=== PATIENT | male | born 1940 | race Caucasian/White ===

== ENCOUNTER → 2016-05-14 | Outpatient (CLI) | payer BC ==
[~2016-05-14] MED LIST: ALLO100T PO; ASPI-435 PO; ATOR80TA PO; LISI-461 PO; LISI-725 PO; METO1TAB69 PO; MULT-506 PO
[2016-05-14 10:34] LABS: BASO % 0.2 %; BASO ABS # 0.01 K/uL (0-0.2); COMPLETE YES; EOS % 6.7 %; IG% 0.2 %; LYMPH % 28.5 %; MEAN CELL VOLUME 91.1 fL (80-100); MEAN CORPUSCULAR HEMOGLOBIN 32.1 pg (25-34); MEAN CORPUSCULAR HGB CONC 35.2 g/dl (32-36); MEAN PLATELET VOLUME 10.3 fL (7.4-10.4); MONO % 6.4 %; PLATELET COUNT 227 K/uL (130-400); RED BLOOD COUNT 4.83 M/uL (4.7-6.1); WHITE BLOOD COUNT 5.97 K/uL (4.8-10.8)
[2016-05-14 10:45] LABS: ALT/SGPT 34 U/L (12-78); BLOOD UREA NITROGEN 14 mg/dl (7-18); BUN/CREATININE RATIO 15.1 (10-20); CALCIUM 9.2 mg/dl (8.5-10.1); CARBON DIOXIDE 26 mmol/L (21-32); CHLORIDE 105 mmol/L (98-107); CHOLESTEROL 192 mg/dl (0-200); CREATININE 0.94 mg/dl (0.60-1.40); GLUCOSE 110 mg/dl (70-99); POTASSIUM 4.1 mmol/L (3.5-5.1); SODIUM 140 mmol/L (136-145); TRIGLYCERIDES 437 mg/dl (0-150)
[2016-05-14 10:50] LABS: AST/SGOT 17 U/L (15-37); CHOLESTEROL/HDL RATIO 5.6; HDL CHOLESTEROL 34 mg/dl
[2016-05-14 11:37] LABS: ESTIMATED AVERAGE GLUCOSE 117 mg/dl; HA1C FLAG Normal (Normal)
== END | disposition home or self-care (01) ==
LOC: C.LAB1850 09:21
PROVIDERS: ATTEND Internal Medicine
DX: M10.9 Gout, unspecified (principal); R73.9 Hyperglycemia, unspecified; E78.00 Pure hypercholesterolemia, unspecified; R73.09 Other abnormal glucose

== ENCOUNTER → 2016-10-27 | Day surgery (SDC) | payer BC ==
[2016-10-19 10:24] VITALS: Ht 172.7 cm; Wt 77.3 kg
[~2016-10-27] VITALS: Ht 172.7 cm; Wt 77.3 kg
[~2016-10-27] MED LIST changes: +500ML BSS 0.3ML EPI 1:1000PF IRRIG ONE; +ACETAMINOPHEN 325 MG TAB PO PRN; +AMVISC PLUS 0.8ML SYRINGE INT OCU ONE; +ATROPINE SULFATE 0.1 MG/ML 5ML SYR IV PRN; +AcetaZOLAMIDE 250 MG TAB PO SCH; +BETAXOLOL HCL 0.25% OP SUSP PER DROP CHARGE OPR SCH; +BRIMONIDINE TART 0.2% OP SOLN PER DROP CHARGE ONE; +BSS FLUSH ONE; +ENDOCOAT 0.85ML SYRINGE INT OCU ONE; +EpHEDrine SULFATE INJ 50 MG/ML AMP IV PRN; +EpINEphrine INJ 1MG/ML AMP 1 MG/ML AMP ONE; +LACTATED RINGER'S 1000ML 500 ML IV SCH; +LIDOCAINE 4% OP SOLN DROP CHARGE ONE; +LIDOCAINE 4% OP SOLN DROP CHARGE OPR SCH; +LIDOCAINE HCL 1% MPF 2 ML VIAL ONE; -LISI-461 PO; +MIDAZOLAM HCL 1 MG/ML 2ML VIAL ONE; +MIX: 4ML BSS 1ML EPI 1:1000 PF INSTIL ONE; +MOXIFLOXACIN OPH SOLN PER DROP CHARGE ONE; +OCUCOAT 1 ML SOLN IO ONE; +POVIDONE-IODINE OP SOLN 30 ML BTL ONE; +PROPARACAINE 0.5% OP SOLN PER DROP CHARGE OPR SCH; +TOBRAMYCIN/DEXAMETHASONE OPH OINT PER APPLN CHARGE ONE
--- NOTE | 2016-10-27 10:00 | History & Physical Bridge - [place] ---
H&P Re-Evaluation Bridge Note: I have examined the patient, reviewed the History & Physical and in the interval since the performance of the History & Physical I have noted the following changes of clinical significance: No changes noted
[2016-10-27] MEDS: PHENYLEPHRINE HCL 2.5% OP SOLN PER DROP CHARGE OPR SCH ×2 (10:55→11:00)
[2016-10-27] MEDS: TROPICAMIDE 1% OP SOLN PER DROP CHARGE OPR SCH ×2 (10:56→11:01)
[2016-10-27] MEDS: CYCLOPENTOLATE HCL 1% OP SOLN PER DROP CHARGE OPR SCH ×2 (10:57→11:02)
[2016-10-27] MEDS: MOXIFLOXACIN OPH SOLN PER DROP CHARGE OPR SCH ×2 (10:58→11:08)
--- NOTE | 2016-10-27 11:52 | Discharge Instructions-SurgCtr ---
Discharge Instructions Date of Service Oct 27, 2016. Visit Reason for Visit: Cataract Right Eye Discharge Discharge Diagnosis / Problem: lens implant right eye Discharge Goals Goal(s): Improve function Activity Recommendations Activity Limitations: resume your previous activity Lifting Limitations: no more than 10 pounds Exercise/Sports Limitations: gradually increase as tolerated May Resume Sexual Activity: when tolerated Shower/Bathe: tomorrow Driving or Machine Use: resume 1 day after discharge Anesthesia . Post Anesthesia Instructions: If you have had General Anesthesia or IV Sedation: * Do not drive today. * Resume driving when surgeon permits. * Do not make important decisions or sign legal documents today. * Call surgeon for: 1. Temperature elevations greater than 101 degrees F. 2. Uncontrollable pain. 3. Excessive bleeding. 4. Persistent nausea and vomiting. 5. Medication intolerance (nausea, vomiting or rash). * For nausea and vomiting use only clear liquids such as: tea, soda, bouillon until nausea subsides, then gradually increase diet as tolerated. * If you have any concerns or questions, call your surgeon's office. If physician is unavailable and it is an emergency, call 911 or go to the nearest emergency room. . Instructions / Follow-Up Instructions / Follow-Up ACTIVITY RECOMMENDATIONS: * Light activities. * Mild irritation and blurred vision are common for the first few days. * You may walk outside, read, watch television. * Redness around the white part of the eye is common. MEDICATIONS: Resume previous medications unless instructed otherwise by your surgeon. * Take white Diamox (Acetazolamide) tablet at 2 pm today. Start all eye drops at 2 pm today: * Eye drops (today and tomorrow): Durezol - one drop in operative eye every 3 hours while awake Ofloxacin - one drop in operative eye every 3 hours while awake SPECIAL CARE INSTRUCTIONS: * Tape plastic shield over eye to sleep at night. Call your doctor at with any concerns or problems. FOLLOW UP VISIT: Follow-up with Dr Fuentes at [place] office as scheduled. Diet Recommendations Home Diet: no limitations Procedures Procedures Performed: cataract extraction with lens implants Pending Studies Studies pending at discharge: no Medical Emergencies . Who to Call and When: Medical Emergencies: If at any time you feel your situation is an emergency, please call 911 immediately. . Non-Emergent Contact Non-Emergency issues call your: Cad Programmer Call Non-Emergent contact if: your pain is not controlled [phone] . . "Provider Documentation" section prepared by Julio C Fuentes. .
--- NOTE | 2016-10-27 11:55 | [facility] Operative Report ---
Operative Report Date of Service Oct 27, 2016. Operative Report 1. PREOPERATIVE DIAGNOSIS: Senile nuclear cataract, right eye. 2. POSTOPERATIVE DIAGNOSIS: Senile nuclear cataract, right eye. 3. PROCEDURE: Phacoemulsification of right cataract with posterior chamber lens implant, type Bausch [employer] Lomb, model MI60L, power +23.0 diopters. ANESTHESIA: Local standby. SURGEON: Dr. Fuentes. COMPLICATIONS: None. OPERATING TIME: 10 minutes. 4. OPERATION AND FINDINGS: DESCRIPTION OF PROCEDURE: The right pupil was dilated. The anesthetic was administered using a topical technique. The right eye was prepped and draped. A speculum was placed. A clear corneal incision was formed. The chamber was filled with Amvisc Plus and Endocoat. Epinephrine solution was used. A paracentesis was placed. A capsulorrhexis was performed. The nucleus was hydrodissected. The lens was removed with phacoemulsification. Time was 5.59 seconds. The aspiration unit was used to remove the cortex. The capsule was filled with Amvisc Plus. The lens implant was folded and placed into the capsule. An astigmatic incision was placed at the limbus directly across from the original incision. The incisions were hydrated. The Amvisc was aspirated. The wounds were secure. The chamber was deep. The pupil was round. Brimonidine, TobraDex ointment and Vigamox solution were placed. The speculum was removed. The patient was returned to the Recovery Room in stable condition. I attest to the content of the Intraoperative Record and any orders documented therein. Any exceptions are noted below. The scribe's documentation has been prepared in my presence, under my direction and personally reviewed by me in its entirety. I confirm that the note above accurately reflects all work, treatment, procedures, and medical decision making performed by me. I personally scribed for Julio C Fuentes M.D. ([email or web address]) on 10/27/16 at 11:55. Electronically submitted by Lydia Mock ([email or web address]).
[2016-10-27 11:56] VITALS: TEMP 36.6
[2016-10-27 12:16] VITALS: BP 168/76; PULSE 60; O2SAT 97
--- NOTE | 2016-10-27 12:20 | Anesthesia Progress Nt - [facility] ---
Anesthesia Post Op Note Date & Time Oct 27, 2016 at 12:19 Vital Signs Pain Intensity: 0 Vital Signs Past 12 Hours Date Time Temp Pulse Resp B/P (MAP) Pulse Ox O2 Delivery O2 Flow Rate FiO2 10/27/16 12:16 60 20 168/76 (106) 97 Room Air 10/27/16 11:56 36.6 64 16 172/82 (112) 96 Room Air 10/27/16 10:39 36.6 63 16 171/81 (111) 95 Room Air Notes Mental Status: alert / awake / arousable, participated in evaluation Pt Amnestic to Procedure: Yes Nausea / Vomiting: adequately controlled Pain: adequately controlled Airway Patency, RR, SpO2: stable & adequate BP & HR: stable & adequate Hydration State: stable & adequate Anesthetic Complications: no major complications apparent
== END | disposition home or self-care (01) ==
LOC: X.SURG 09:42
PROVIDERS: ATTEND Specialist
DX: H25.11 Age-related nuclear cataract, right eye (principal); I10 Essential (primary) hypertension; I51.9 Heart disease, unspecified; Z79.82 Long term (current) use of aspirin; Z79.899 Other long term (current) drug therapy

== ENCOUNTER → 2016-11-17 | Day surgery (SDC) | payer BC ==
[2016-11-05 11:11] VITALS: Ht 172.7 cm; Wt 77.3 kg
[~2016-11-17] VITALS: Ht 172.7 cm; Wt 77.3 kg
[~2016-11-17] MED LIST changes: +BETAXOLOL HCL 0.25% OP SUSP PER DROP CHARGE OPL SCH; -BETAXOLOL HCL 0.25% OP SUSP PER DROP CHARGE OPR SCH; +LIDOCAINE 4% OP SOLN DROP CHARGE OPL SCH; -LIDOCAINE 4% OP SOLN DROP CHARGE OPR SCH; +PROPARACAINE 0.5% OP SOLN PER DROP CHARGE OPL SCH; -PROPARACAINE 0.5% OP SOLN PER DROP CHARGE OPR SCH
[2016-11-17] MEDS: PHENYLEPHRINE HCL 2.5% OP SOLN PER DROP CHARGE OPL SCH ×2 (11:34→11:41)
[2016-11-17] MEDS: TROPICAMIDE 1% OP SOLN PER DROP CHARGE OPL SCH ×2 (11:35→11:43)
[2016-11-17] MEDS: CYCLOPENTOLATE HCL 1% OP SOLN PER DROP CHARGE OPL SCH ×2 (11:36→11:44)
[2016-11-17] MEDS: MOXIFLOXACIN OPH SOLN PER DROP CHARGE OPL SCH ×2 (11:37→11:48)
--- NOTE | 2016-11-17 12:17 | Discharge Instructions-SurgCtr ---
Discharge Instructions Date of Service Nov 17, 2016. Visit Reason for Visit: Cataract Left Eye Discharge Discharge Diagnosis / Problem: lens implant left eye Discharge Goals Goal(s): Improve function Activity Recommendations Activity Limitations: resume your previous activity Lifting Limitations: no more than 10 pounds Exercise/Sports Limitations: gradually increase as tolerated May Resume Sexual Activity: when tolerated Shower/Bathe: tomorrow Driving or Machine Use: resume 1 day after discharge Anesthesia . Post Anesthesia Instructions: If you have had General Anesthesia or IV Sedation: * Do not drive today. * Resume driving when surgeon permits. * Do not make important decisions or sign legal documents today. * Call surgeon for: 1. Temperature elevations greater than 101 degrees F. 2. Uncontrollable pain. 3. Excessive bleeding. 4. Persistent nausea and vomiting. 5. Medication intolerance (nausea, vomiting or rash). * For nausea and vomiting use only clear liquids such as: tea, soda, bouillon until nausea subsides, then gradually increase diet as tolerated. * If you have any concerns or questions, call your surgeon's office. If physician is unavailable and it is an emergency, call 911 or go to the nearest emergency room. . Instructions / Follow-Up Instructions / Follow-Up ACTIVITY RECOMMENDATIONS: * Light activities. * Mild irritation and blurred vision are common for the first few days. * You may walk outside, read, watch television. * Redness around the white part of the eye is common. MEDICATIONS: Resume previous medications unless instructed otherwise by your surgeon. * Take white Diamox (Acetazolamide) tablet at 3 pm today. Start all eye drops at 3 pm today: * Eye drops (today and tomorrow): Durezol - one drop in operative eye every 3 hours while awake Ofloxacin - one drop in operative eye every 3 hours while awake SPECIAL CARE INSTRUCTIONS: * Tape plastic shield over eye to sleep at night. Call your doctor at with any concerns or problems. FOLLOW UP VISIT: Follow-up with Dr Fuentes at [place] office as scheduled. Diet Recommendations Home Diet: no limitations Procedures Procedures Performed: cataract extraction with lens implant Pending Studies Studies pending at discharge: no Medical Emergencies . Who to Call and When: Medical Emergencies: If at any time you feel your situation is an emergency, please call 911 immediately. . Non-Emergent Contact Non-Emergency issues call your: Sheriffs Detective Call Non-Emergent contact if: your pain is not controlled [phone] . . "Provider Documentation" section prepared by Julio C Fuentes. .
--- NOTE | 2016-11-17 12:19 | [facility] Operative Report ---
Operative Report Date of Service Nov 17, 2016. Operative Report 1. PREOPERATIVE DIAGNOSIS: Senile nuclear cataract, left eye. 2. POSTOPERATIVE DIAGNOSIS: Senile nuclear cataract, left eye. 3. PROCEDURE: Phacoemulsification of left cataract with posterior chamber lens implant, type B[employer]ch [employer] Lomb, model MI60L, power +23.0 diopters. ANESTHESIA: Local standby. SURGEON: Dr. Fuentes. COMPLICATIONS: None. OPERATING TIME: 10 minutes. 4. OPERATION AND FINDINGS: DESCRIPTION OF PROCEDURE: The left pupil was dilated. The anesthetic was administered using a topical technique. The left eye was prepped and draped. A speculum was placed. A clear corneal incision was formed. The chamber was filled with Amvisc Plus and Endocoat. Epinephrine solution was used. A paracentesis was placed. A capsulorrhexis was performed. The nucleus was hydrodissected. The lens was removed with phacoemulsification. Time was 3.72 seconds. The aspiration unit was used to remove the cortex. The capsule was filled with Amvisc Plus. The lens implant was folded and placed into the capsule. An astigmatic incision was placed at the limbus directly from the primary incision. The incision was hydrated. The Amvisc was aspirated. The wound was secure. The chamber was deep. The pupil was round. Brimonidine, TobraDex ointment and Vigamox solution were placed. The speculum was removed. The patient was returned to the Recovery Room in stable condition. I attest to the content of the Intraoperative Record and any orders documented therein. Any exceptions are noted below. The scribe's documentation has been prepared in my presence, under my direction and personally reviewed by me in its entirety. I confirm that the note above accurately reflects all work, treatment, procedures, and medical decision making performed by me. I personally scribed for Julio C Fuentes M.D. ([email or web address]) on 11/17/16 at 12:19. Electronically submitted by Lydia UGARTE).
[2016-11-17 12:21] VITALS: TEMP 36.5
[2016-11-17 12:38] VITALS: BP 147/78; PULSE 61; O2SAT 95
--- NOTE | 2016-11-17 12:41 | Anesthesia Progress Nt - [facility] ---
Anesthesia Post Op Note Date & Time Nov 17, 2016 at 12:41 Vital Signs Pain Intensity: 0 Vital Signs Past 12 Hours Date Time Temp Pulse Resp B/P (MAP) Pulse Ox O2 Delivery O2 Flow Rate FiO2 11/17/16 12:38 61 16 147/78 (101) 95 Room Air 11/17/16 12:21 36.5 60 16 154/79 (104) 95 Room Air 11/17/16 11:21 36.8 62 18 162/70 (100) 95 Room Air Notes Mental Status: alert / awake / arousable, participated in evaluation Pt Amnestic to Procedure: Yes Nausea / Vomiting: adequately controlled Pain: adequately controlled Airway Patency, RR, SpO2: stable & adequate BP & HR: stable & adequate Hydration State: stable & adequate Anesthetic Complications: no major complications apparent
== END | disposition home or self-care (01) ==
LOC: X.SURG 10:43
PROVIDERS: ATTEND Specialist
DX: H25.12 Age-related nuclear cataract, left eye (principal); I10 Essential (primary) hypertension; I51.9 Heart disease, unspecified

== ENCOUNTER → 2016-12-03 | Outpatient (CLI) | payer BC ==
[~2016-12-03] MED LIST changes: -500ML BSS 0.3ML EPI 1:1000PF IRRIG ONE; -ACETAMINOPHEN 325 MG TAB PO PRN; -AMVISC PLUS 0.8ML SYRINGE INT OCU ONE; -ATROPINE SULFATE 0.1 MG/ML 5ML SYR IV PRN; -AcetaZOLAMIDE 250 MG TAB PO SCH; -BETAXOLOL HCL 0.25% OP SUSP PER DROP CHARGE OPL SCH; -BRIMONIDINE TART 0.2% OP SOLN PER DROP CHARGE ONE; -BSS FLUSH ONE; -ENDOCOAT 0.85ML SYRINGE INT OCU ONE; -EpHEDrine SULFATE INJ 50 MG/ML AMP IV PRN; -EpINEphrine INJ 1MG/ML AMP 1 MG/ML AMP ONE; -LACTATED RINGER'S 1000ML 500 ML IV SCH; -LIDOCAINE 4% OP SOLN DROP CHARGE ONE; -LIDOCAINE 4% OP SOLN DROP CHARGE OPL SCH; -LIDOCAINE HCL 1% MPF 2 ML VIAL ONE; -MIDAZOLAM HCL 1 MG/ML 2ML VIAL ONE; -MIX: 4ML BSS 1ML EPI 1:1000 PF INSTIL ONE; -MOXIFLOXACIN OPH SOLN PER DROP CHARGE ONE; -OCUCOAT 1 ML SOLN IO ONE; -POVIDONE-IODINE OP SOLN 30 ML BTL ONE; -PROPARACAINE 0.5% OP SOLN PER DROP CHARGE OPL SCH; -TOBRAMYCIN/DEXAMETHASONE OPH OINT PER APPLN CHARGE ONE
[2016-12-03 09:48] LABS: ALT/SGPT 38 U/L (12-78); AST/SGOT 23 U/L (15-37); BLOOD UREA NITROGEN 19 mg/dl (7-18); BUN/CREATININE RATIO 20.4 (10-20); CALCIUM 8.9 mg/dl (8.5-10.1); CARBON DIOXIDE 26 mmol/L (21-32); CHLORIDE 108 mmol/L (98-107); CHOLESTEROL 159 mg/dl (0-200); CREATININE 0.93 mg/dl (0.60-1.40); GLUCOSE 106 mg/dl (70-99); SODIUM 141 mmol/L (136-145); TRIGLYCERIDES 287 mg/dl (0-150); VERY LOW DENSITY LIPOPROT CALC 57 mg/dl
[2016-12-03 09:51] LABS: CHOLESTEROL/HDL RATIO 4.4; HDL CHOLESTEROL 36 mg/dl; LDL CHOLESTEROL CALCULATED 66 mg/dl
== END | disposition home or self-care (01) ==
LOC: C.LAB1850 07:11
PROVIDERS: ATTEND Internal Medicine
DX: E78.00 Pure hypercholesterolemia, unspecified (principal); I10 Essential (primary) hypertension

== ENCOUNTER → 2017-06-10 | Outpatient (CLI) | payer BC ==
[~2017-06-10] MED LIST changes: +METO100T44 PO; -METO1TAB69 PO
[2017-06-10 09:35] LABS: HEMATOCRIT 43.8 % (42-52); HEMOGLOBIN 14.7 g/dL (14.0-18.0); MEAN CELL VOLUME 91.3 fL (80-100); MEAN CORPUSCULAR HEMOGLOBIN 30.6 pg (25-34); MEAN CORPUSCULAR HGB CONC 33.6 g/dl (32-36); MEAN PLATELET VOLUME 11.1 fL (7.4-10.4); PLATELET COUNT 205 K/uL (130-400); RED CELL DISTRIBUTION WIDTH CV 13.8 % (11.5-14.5); RED CELL DISTRIBUTION WIDTH SD 45.4 fL (36.4-46.3)
[2017-06-10 09:44] LABS: ALT/SGPT 32 U/L (12-78); AST/SGOT 18 U/L (15-37); BLOOD UREA NITROGEN 14 mg/dl (7-18); CALCIUM 8.9 mg/dl (8.5-10.1); CARBON DIOXIDE 28 mmol/L (21-32); CREATININE 0.92 mg/dl (0.60-1.40); GLUCOSE 106 mg/dl (70-99); POTASSIUM 3.7 mmol/L (3.5-5.1); SODIUM 139 mmol/L (136-145)
[2017-06-10 09:49] LABS: CHOLESTEROL 130 mg/dl (0-200); LDL CHOLESTEROL CALCULATED 59 mg/dl; URIC ACID 3.7 mg/dl (2.6-7.2)
[2017-06-10 09:59] LABS: HEMOGLOBIN A1C 5.8 % (4.5-5.6)
== END | disposition home or self-care (01) ==
LOC: C.LAB1850 07:37
PROVIDERS: ATTEND Internal Medicine Cardiovascular Disease
DX: R73.03 Prediabetes (principal); M10.9 Gout, unspecified; E78.00 Pure hypercholesterolemia, unspecified

== ENCOUNTER → 2017-12-16 | Outpatient (CLI) | payer BC ==
[2017-12-16 09:42] LABS: ALT/SGPT 52 U/L (12-78); AST/SGOT 32 U/L (15-37); BLOOD UREA NITROGEN 16 mg/dl (7-18); CARBON DIOXIDE 28 mmol/L (21-32); CHOLESTEROL 138 mg/dl (0-200); CREATININE 0.88 mg/dl (0.60-1.40); GLUCOSE 116 mg/dl (70-99); LDL CHOLESTEROL CALCULATED 71 mg/dl; POTASSIUM 4.1 mmol/L (3.5-5.1); SODIUM 139 mmol/L (136-145)
[2017-12-16 11:22] LABS: HEMOGLOBIN A1C 5.9 % (4.5-5.6)
== END | disposition home or self-care (01) ==
LOC: C.LAB1850 07:29
PROVIDERS: ATTEND Internal Medicine
DX: E78.00 Pure hypercholesterolemia, unspecified (principal); R73.03 Prediabetes

== ENCOUNTER 2023-05-27 08:46 | Inpatient (IN) ==
[2023-05-27] MEDS: FUROSEMIDE 40 MG/4 ML VIAL IV ONE (09:19)
[2023-05-27 09:30] LABS: Appearance Urine Cloudy (Clear); Bacteria Urine Automated Negative (Negative); Blood Urine Negative (Negative); Color Urine Dark Yellow; Glucose Urine UA Negative (Negative); Ketones Urine Trace (Negative); Leukocyte Esterase Urine Trace (Negative); Nitrite Urine Positive (Negative); Protein Urine 1+ (Negative); Specific Gravity Urine 1.026 (1.000-1.030); Urobilinogen Urine Negative (Negative)
[2023-05-27 09:31] LABS: Bilirubin Urine 2+ (Negative)
[2023-05-27 09:35] LABS: Base Excess ABG -9.6 mEq/L (-9-1.8); HCO3 ABG 15 mmol/L (19-24); PCO2 ABG 27 mmHg (35-46); PO2 ABG 120 mmHg (80-95); pH ABG 7.34 (7.35-7.45)
[2023-05-27 09:36] LABS: Alanine Aminotransferase 42 U/L (7-52); Albumin Globulin Ratio 1.4 (0.9-2); Albumin Level 3.8 gm/dl (3.4-5.0); Alkaline Phosphatase 80 U/L (34-104); Anion Gap 15 (3-11); Aspartate Aminotransferase 40 U/L (13-39); Bilirubin,Total 1.7 mg/dl (0.2-1.0); Blood Urea Nitrogen 37 mg/dl (6-23); Calcium 9.8 mg/dl (8.6-10.3); Carbon Dioxide 17 mmol/L (21-32); Chloride 104 mmol/L (98-107); Est GFR (African American) 56.6 ml/min; Est GFR (Non-African American) 48.8 ml/min; Globulin 2.7 gm/dl (2.5-4.0); Glucose 100 mg/dl (70-99(Fasting)); Magnesium 2.1 mg/dl (1.7-2.4); Potassium 5.1 mmol/L (3.5-5.1); Sodium 136 mmol/L (136-145); Total Protein 6.5 gm/dl (6.0-8.3)
[2023-05-27] MEDS: cefTRIAXone SODIUM 2,000 MG/50 ML BAG IV STA (09:41)
[2023-05-27 09:44] LABS: Basophils # (auto) 0.02 K/uL (0.00-0.20); Basophils % (auto) 0.3 %; Eosinophils # (auto) 0.01 K/uL (0.00-0.50); Eosinophils % (auto) 0.2 %; Hemoglobin 16.5 g/dl (14.0-18.0); Immature Granulocytes # (auto) 0.02 K/uL (0.01-0.20); Immature Granulocytes % (auto) 0.3 %; Lymphocytes # (auto) 0.72 K/uL (1.20-3.40); Lymphocytes % (auto) 11.6 %; Mean Corpuscular Hemoglobin 30.2 pg (25.0-34.0); Mean Corpuscular Hgb Conc 32.4 g/dL (32.0-36.0); Mean Corpuscular Volume 93.4 fL (80.0-100.0); Monocytes # (auto) 0.37 K/uL (0.11-0.59); Neutrophils # (auto) 5.06 K/uL (1.40-6.50); Neutrophils % (auto) 81.6 %; Platelet Count 221 K/uL (130-400); RDW Coefficient of Variation 18.6 % (11.5-14.5); RDW Standard Deviation 61.1 fL (36.4-46.3); Red Blood Count 5.46 M/uL (4.70-6.10); Troponin I High Sensitivity 50.4 pg/ml (0-20)
[2023-05-27 09:51] LABS: Thyroid Stimulating Hormone 26.763 uIu/ml (0.300-4.500)
[2023-05-27 09:58] LABS: Allen Test Pos (Pos)
--- NOTE | 2023-05-27 10:09 | History & Physical Report ---
Date of Service May 27, 2023 Assessment & Plan (1) Acute HFrEF (heart failure with reduced ejection fraction): Plan: Patient presented for a leg angiogram in 05/27; however, he was hypoxic, tachypneic, and cyanotic on arrival Bedside echocardiogram revealed LVEF at 20-25% CXR revealed cardiomegaly with mild congestive change, as well as small bilateral pleural effusions and patchy bibasilar densities EKG showed sinus rhythm with PACs at 84 bpm; QTc 505 (caution use of QT prolonging agents) No prior history of CHF No leukoctosis; afebrile VB.34/27/120/15 BNP significantly elevated at >4700 Lactate 5.5-->3.0 on arrival Troponin elevated at 50.4-->92.0 Dry weight 77-80kg (88kg on arrival) Daily weights Strict I&O monitoring Supplemental oxygen as needed to maintain SpO2 > 94% Lasix 40 mg IV BID17 Hold cilostazol as it is contraindicated in CHF 1500 mL fluid restriction Cardiology consulted for workup, as this is his first instance of HFrEF; ?acute on chronic PT/OT consulted Case management consulted; patient lives alone, and may require additional support at home A.m. CBC, BMP (2) UTI (urinary tract infection): Plan: UA positive on arrival; unclear if this is a contaminant Clinically, patient denies dysuria, burning with urination, or urinary retention Covered with Rocephin in the ED Billings placed in the ED Continue Rocephin 2000 mg IV q24h (3) Elevated TSH: Plan: TSH elevated at 26.763 on arrival Free T4 WNL at 0.77 Last TSH on 01/07/23 was 3.455 No prior diagnosis of hypothyroidism Patient denies hx of thyroid issues Reached out to endocrinology, who recommended levothyroxine 25 mcg every other day (4) Elevated troponin: Plan: Troponin elevated at 50.4-->92.0 on arrival Clinically, patient denies chest pain Continuous telemetry monitoring Trend troponin (5) PAD (peripheral artery disease): Plan: Continue aspirin (6) Hypercholesterolemia: Plan: Continue atorvastatin (7) Hypertension: Plan: Hold lisinopril in the setting of borderline YANELI Continue metoprolol (8) Gout, joint: Plan: Continue allopurinol Plan Disposition: Admit to PCU telemetry Full code AHA, low-sodium (1500mL fluid restriction) VTE PPx: Heparin 5000u SQ q12h History of Present Illness Chief Complaint: SOB, tachypnea Primary Care Provider: Julio C Lehman MD Cameron is an 83-year-old male with PMH of PAD, CAD, gout, hypercholesterolemia, HTN, vascular disease, and mild cognitive impairment. He presented for a lower extremity angiogram on 05/27, and was tachypnea and cyanotic upon arrival. Bedside echo performed at this time revealed an LVEF at 20-25%, and patient was sent to the ED. No prior diagnosis of CHF. Patient reports that his SOB started months ago. He reports that is mainly FERGUSON, such as when he goes up steps, and he reports that he had to "sit down" on a step while descending for his appointment the morning of 05/27. Patient reports that his breathing is worse at night, specifically when he is laying on his back; he is coming in the habit of sleeping in his recliner. He endorses difficulty with deep breaths. He has not been taking anything additional for his difficulty breathing. He does not use supplemental oxygen at home. Patient lives by himself in an apartment building. He has 3 children, however they are not in the area. Patient's 2.5 years ago. Patient reports he is not been consistent with his daily medications; however he reports he is good with taking his metoprolol, and took it yesterday on 05/26. He did not take his regular morning medications today. He does not use any ambulatory assist devices such as cane or walker. He denies falling, but notes that he took a tumble when exiting his building today and fell forward onto his hands; no head strike; the fleet driver who was taking to the hospital helped him get back up. History of an OK in his 40s; CABG in 2001. Patient notes an increased weight of 10 pounds over the past several months. Former tobacco cigarette smoker; quit 25 years ago. He endorses alcohol use; 1 beer yesterday; he reports that he drinks at most 3 beers per day. Patient is mildly hypothermic at 36.4 C at time of admissions; SpO2 100% on 5L NC. ED course: Rocephin 2000 mg IV Lasix 40 mg IV ROS: Patient endorses worsening FERGUSON and swelling in legs. Patient denies fever, chills, dizziness, lightheadedness, CABRAL, chest pain, chest palpitations, pleuritic CP, cough, abdominal pain, N/V/D, dysuria, burning with urination, blood in the urine/stool, or numbness/tingling in the arms or legs. Allergies Allergy/AdvReac Type Severity Reaction Status Date / Time No Known Allergies Allergy Unverified 05/27/23 07:49 Home Medications Medication Instructions Recorded Confirmed Type multivitamin,[id number] 1 tab PO DAILY 11/09/18 05/27/23 History (Complete Multivitamin tablet) aspirin 81 mg tablet 81 mg PO DAILY 12/11/18 05/27/23 History cholecalciferol (vitamin D3) 50 50 mcg PO DAILY 06/29/22 05/27/23 History mcg (2,000 unit) capsule atorvastatin 80 mg tablet 80 mg PO QPM #90 tabs 11/19/22 05/27/23 Rx allopurinol 300 mg tablet See Rx Instructions .Route 11/25/22 05/27/23 Rx .COMPLEX #90 tabs cilostazol 100 mg tablet 100 mg PO BID #180 tabs 03/21/23 05/27/23 Rx metoprolol succinate 100 mg 150 mg (1.5 x 100 mg) PO DAILY 04/04/23 05/27/23 Rx tablet,extended release 24 hr #180 tabs lisinopril 40 mg tablet See Rx Instructions .Route 05/16/23 05/27/23 Rx .COMPLEX #90 tabs Past Med/Surg History Medical History (Updated 05/27/23 @ 11:17 by Josh Dawn PA-C) Diverticulosis of colon Adenomatous polyp of colon CAD (coronary atherosclerotic disease) Wound infection Syncope Open dislocation of right thumb Laceration of right hand Head injury Surgical History History of coronary artery bypass graft Hx of CABG H/O oral surgery Family History Mother Hypertension Dementia Hyperlipidemia Sister Hypertension Breast cancer Valvular heart disease Coronary heart disease Unknown Hyperlipidemia Grandfather Acute myocardial infarction Denies family history of Colon cancer Ovarian cancer Prostate cancer Myocardial infarction Social History Smoking Status: Former smoker Second Hand Exposure: Yes; Do You Dip or Chew Tobacco: No; Hx Alcohol Use: No Hx Substance Use: No Preferred Language: Spanish Visual Impairment: Partially Limited Hearing Ability: Normal Beliefs That Will Affect Care: None marital status: Current Living Situation: Alone current occupational status: retired How many Children do You have: 3 How many Children do You have Comment: 3 step children Feels Safe at Home: Yes Childhood Exposure to Second-Hand Smoke: No Diet: regular during the past year weight has: remained stable Dental Care, Regularly: Yes Physical Activity Frequency: 3-4 Times per Week Seatbelt Use: always Sunscreen Use: Yes Review of Systems Review of Systems: See HPI above Physical Exam Physical Exam: General: no acute distress; cyanotic lips; pleasant affect; non-toxic appearing; well-nourished; cooperative; 100% SpO2 on 5L NC HEENT: normocephalic, atraumatic; no scleral icterus; PERRLA; moist mucus membrane; vision and hearing grossly intact Neck: supple; negative for JVD; no lymphadenopathy; trachea midline Skin: warm, dry without signs of tenting; mild cyanosis at fingertips; no rashes, bruising, or lesions noted CV: chest wall NTP; RRR; S1/S2 normal; no murmurs/rubs/gallops; pulses intact and symmetric at radial; Doppler was used to obtain DP pulse in the lower extremities bilaterally, which are monophasic and weak in the setting of gross swelling Lungs: no acute respiratory distress; symmetrical chest wall expansion; expiratory wheeze auscultated at the posterior lung nunez bilaterally ABD: Soft, NTP; BS present; no rebound/guarding; no ascites; no distention; negative CVA tenderness : Genitals mildly swollen; Billings catheter in place without signs of bleeding or drainage; Billings bag with dark orange urine MSK: no tics or fasciculations; +3 pitting edema extending from the top to the patient's feet to his waist bilaterally; LLE erythematous Neuro: A&Ox3; normal mood and affect; fluent speech; no focal deficits; sensation intact in LEs B/L Results & Data Results & Data Vital Signs (Past 12 Hours) Vital Signs Pulse Resp BP Pulse Ox O2 Del Method O2 Flow Rate 05/27/23 10:00 120/82 05/27/23 10:00 82 23 99 Nasal Cannula 5 05/27/23 09:53 83 27 H 91 Nasal Cannula 5 05/27/23 09:53 99/76 L 05/27/23 09:30 81 20 91 Nasal Cannula 5 05/27/23 09:30 91 Nasal Cannula 5 05/27/23 09:14 Nasal Cannula 5 05/27/23 09:10 81 22 100 05/27/23 09:10 126/83 05/27/23 09:08 118/76 05/27/23 09:08 81 20 100 Nasal Cannula 5 05/27/23 09:06 81 22 126/83 100 Nasal Cannula 5 05/27/23 09:00 82 19 100 Nasal Cannula 5 05/27/23 08:52 83 05/27/23 08:49 83 19 100 Laboratory Results Abnormal lab results 05/27/23 05/27/23 05/27/23 Range/Units 08:57 09:05 09:24 RDW Std Deviation 61.1 H (36.4-46.3) fL RDW Coeff of Rolan 18.6 H (11.5-14.5) % Lymph # (Auto) 0.72 L (1.20-3.40) K/uL ABG pH 7.34 L (7.35-7.45) ABG pCO2 27 L (35-46) mmHg ABG pO2 120 H (80-95) mmHg ABG HCO3 15 L (19-24) mmol/L ABG O2 Saturation 99.0 H (90-95) % ABG Base Excess -9.6 L (-9-1.8) mEq/L Carbon Dioxide 17 L (21-32) mmol/L Anion Gap 15 H (3-11) BUN 37 H (6-23) mg/dl BUN/Creatinine Ratio 28.0 H (10-20) Glucose 100 H (70-99(Fasting)) mg/dl Lactate 5.5 H* (0.4-2.0) mmol/L Total Bilirubin 1.7 H (0.2-1.0) mg/dl AST 40 H (13-39) U/L Troponin I High Sens 50.4 H* (0-20) pg/ml B-Natriuretic Peptide > 4700 H (0-100) pg/ml TSH 26.763 H (0.300-4.500) uIu/ml Urine Appearance Cloudy A (Clear) Urine Protein 1+ H (Negative) Urine Ketones Trace H (Negative) Urine Nitrite Positive A (Negative) Urine Bilirubin 2+ H (Negative) Ur Leukocyte Esterase Trace H (Negative) Urine RBC (Auto) 5-10 H (0-4) /hpf U Hyaline Cast (Auto) 5-10 H (0-5) /lpf U Epithel Cells (Auto) 10-20 H (0-5) /lpf 05/27/23 Range/Units 10:50 RDW Std Deviation (36.4-46.3) fL RDW Coeff of Rolan (11.5-14.5) % Lymph # (Auto) (1.20-3.40) K/uL ABG pH (7.35-7.45) ABG pCO2 (35-46) mmHg ABG pO2 (80-95) mmHg ABG HCO3 (19-24) mmol/L ABG O2 Saturation (90-95) % ABG Base Excess (-9-1.8) mEq/L Carbon Dioxide (21-32) mmol/L Anion Gap (3-11) BUN (6-23) mg/dl BUN/Creatinine Ratio (10-20) Glucose (70-99(Fasting)) mg/dl Lactate 3.0 H* (0.4-2.0) mmol/L Total Bilirubin (0.2-1.0) mg/dl AST (13-39) U/L Troponin I High Sens (0-20) pg/ml B-Natriuretic Peptide (0-100) pg/ml TSH (0.300-4.500) uIu/ml Urine Appearance (Clear) Urine Protein (Negative) Urine Ketones (Negative) Urine Nitrite (Negative) Urine Bilirubin (Negative) Ur Leukocyte Esterase (Negative) Urine RBC (Auto) (0-4) /hpf U Hyaline Cast (Auto) (0-5) /lpf U Epithel Cells (Auto) (0-5) /lpf Diagnostic Findings Chest X-Ray 05/27/23 08:56 XR chest 1V portable HISTORY: weakness COMPARISON: None. FINDINGS: There are low lung volumes. No pneumothorax. The heart is enlarged. There are poststernotomy changes. No acute fractures identified. Small bilateral pleural effusions and bibasilar densities. There is mild vascular congestion without overt edema. IMPRESSION: 1. Cardiomegaly with mild congestive change. 2. Small bilateral pleural effusions and patchy bibasilar densities. This may represent atelectasis or a pneumonia. ACT 112: Negative or not required by law. Electronically signed by: Josh Fuentes M.D. 05/27/2023 10:33 AM Code Status & VTE Plan Code Status Full code VTE Prophylaxis Plan VTE Prophylaxis will be ordered: Yes Supervising Physician Co-Signing Physician Notes Patient seen and examined, chart reviewed, case discussed with Josh Dawn, PAC and I agree with the assessment and plan as above except as otherwise noted Labs and images reviewed Cameron Gold"is a 83-year-old male with a history of peripheral vascular disease, CAD/CABG without history of CHF, hypertension, hyperlipidemia, who presented for vascular outpatient evaluation this morning for peripheral artery disease and progressive claudication when he was noted to have hypoxia, dyspnea on exertion, and concern for acute fluid overload. He was referred to the emergency department and a bedside echo was performed which showed a EF of approximately 20-25% which is new. Patient's weight on ER arrival is 88 kg, last dry weight appears to range from 77-80 kg. He was not having chest pain at time of referral and EKG did not show any acute ischemic changes, troponin was mildly elevated suspicious for demand without signs of ACS. Patient was seen at the bedside by cardiology and recommended for diuresis and optimization and consideration of catheterization evaluation once improved. At bedside patient endorses progressive lower extremity swelling and shortness of breath over several months, has not had chest pain or chest pressure at any point. Denies diaphoresis. Has had claudication for which she is seeing vascular. At the bedside patient has pitting edema through the feet, lower extremities, and thighs with some venous stasis dermatitis but no overlying warmth/tenderness. JVD is present, lung diminsihed in the bases. Acute new heart failure with reduced ejection fraction History of CAD and CABG 2001 without prior CHF Weight gain of at least 8kg. BNP >4700. CXR with bilateral effusions. Cyrus ateral pleural effusions were present 02/2023 on CTA for vascular evaluation Lasix twice daily, Billings placed follow ins and outs titrate net 1-2 L negative daily. 400 cc output given since Lasix given, lactate is now downtrending on reassessment. Patient comfortable on reassessment. Suspect elevated lactate post to combination of hypoxia and perfusion with volume overload and now improved transient hypotension. Cardiology consulted, patient presentation not consistent with ACS may have had silent ischemic event and is high risk with history of peripheral artery disease and CABG. No chest pain at any point. EKG without acute ischemic changes Continue aspirin, atorvastatin. Cilostazol held due to development of CHF Peripheral artery disease Patient with worsening claudication limiting his ability to walk and use the treadmill. Was seeing vascular for evaluation as outpatient type referral CTAA/P with runoff in February with hemodynamically significant stenosis of bilateral iliacs, right superficial femoral, and right posterior tibial artery. Patient did have moderate bilateral pleural effusions at that time Aspirin, statin, cilostazol continued Borderline YANELI with baseline creatinine around 1.80.94 elevated to 1.32 on admission, suspect congested and patient is clinically volume overloaded. Lasix as noted Hypothyroidism/subclinical hypothyroid No prior personal history or family history of hypothyroidism TSH 26 on admission, free T4 is low end of normal 0.77. Discussed with endocrine would consider this over hypothyroidism especially in setting of CHF and free T4 is lower end of normal. Would recommend treatment with 25 mcg every other day at this time and this will also likely help with cardiac contractility and peripheral vascular resistance. - 25mcg every other day, will follow-up with outpatient TFTs and adjust as needed Patient was given 1 dose of Rocephin for infected versus contaminated UA with moderate epithelial cells. Patient reports he has had no urinary symptoms, no fevers and chills. Will defer further antibiotics but follow for symptoms and UC. Agree with assessment and management otherwise as above PG Care Time/CCT Total # of Minutes Spent Total Time Spent with Patient: Total time spent is greater than 50% in coordination of care (as documented) at patient's floor/unit and/or counseling patient: [place] [address] INT INP/OBS CARE 3/75MIN Patient Type Established History Comprehensive Exam Comprehensive Medical Decision Making High Complexity Diagnoses Acute HFrEF (heart failure with reduced ejection fraction) I50.21 UTI (urinary tract infection) N39.0 Elevated TSH R79.89 Elevated troponin R79.89 PAD (peripheral artery disease) I73.9 Hypercholesterolemia E78.00 Hypertension I10 Gout, joint M10.9
[2023-05-27 10:28] LABS: T4 Free Thyroxine 0.77 ng/dl (0.61-1.60)
--- NOTE | 2023-05-27 10:34 | XRay Report ---
XR chest 1V portable HISTORY: weakness COMPARISON: None. FINDINGS: There are low lung volumes. No pneumothorax. The heart is enlarged. There are poststernotom y changes. No acute fractures identified. Small bilateral pleural effusions and bibasilar densities. There is mild vascular congestion without overt edema. IMPRESSION: 1. Cardiomegaly with mild congestive change. 2. Small bilateral pleural effusions and patchy bibasilar densities. This may represent atelectasis o r a pneumonia. ACT 112: Negative or not required by law. Electronically signed by: Josh Fuentes M.D. 05/27/2023 10:33 AM
[2023-05-27] MEDS: METOPROLOL SUCC 50MG EXT REL TAB PO STA (11:37)
[2023-05-27] MEDS: allopurinoL 300 MG TAB PO SCH (14:14)
[2023-05-27] MEDS: LEVOTHYROXINE SODIUM 25 MCG TABLET PO SCH (14:14)
--- NOTE | 2023-05-27 15:48 | Emergency Department Note ---
Impression & Plan Acute CHF, Elevated troponin, Elevated LFTs, Acidosis, lactic ED Provider Note NAME: ELOISE ELKINS AGE: 83 SEX: Male INFORMANT: Patient ED PROVIDER(S): Tripp Bowser MD CHIEF COMPLAINT: Shortness of breath PLAN: Disposition: Admitted Outpatient prescription management: none Referral: None MEDICAL DECISION MAKING: Patient presented short of breath from cardiopulmonary. Dr. Martin was concerned about poor perfusion and CHF. He had significant weight gain in the recent weeks and had draining edema in the lower extremities on examination. Patient did respond well to supplemental oxygen but still had signs of decreased perfusion peripherally. Bedside echo was performed and the patient does have an EF of about 20% or so. He had a Billings catheter placed. Urinalysis did raise some concerns for infection although the patient does not have a fever or leukocytosis. Lactate was elevated but I believe this was related to hypoxia and poor perfusion. Patient was found to have elevated LFTs as well as elevated cardiac troponin. ABG was rather unremarkable. ECG did not reveal any ST elevation but the patient did have inferolateral Q waves. Patient did receive IV Lasix. Patient was given IV Rocephin. Patient will need further management in the hospital. Consultation was made with Dr. Billy Rojo of the [facility] service. Patient was evaluated in the ER for further management. Care/management discussed with: compensation programs manager, Dr. Martin cardiology Level of care consideration(s): After review of the information above and other included data, I feel the patient requires escalation of care to admission Triage Nursing notes: reviewed and agree them. Vital Signs: reviewed and remarkable for hypoxia Additional History obtained from: Cardiology regarding his visit today Chronic Medical/Social Conditions affecting care: CAD Prior/ Outside/ External records reviewed: none Differential Diagnosis: Reactive airway disease, pneumonia, pneumothorax, COPD, CHF, infections, cardiac ischemia, pulmonary embolism, musculoskeletal, gastrointestinal, as well as other pathologies. Diagnostics, independently interpreted by me: ECG: Twelve-lead ECG reveals sinus rhythm with PACs at 84 bpm. Nonspecific interventricular conduction block present. Inferolateral Q waves present Cardiac Monitoring: Cardiac monitoring ordered by me: The patient was placed on continuous cardiac monitoring and observed. It revealed a sinus rhythm with premature supraventricular contractions at 84 bpm. Medical decision rules: none Imaging studies: Chest x-ray reveals cardiomegaly with bilateral effusions. HPI: 83 year old Male arrives for evaluation of SOB and cyanosis. This started today and was noted by his draw tender, Dr. Martin at his appointment for vascular assessment. The patient also notes the following associated symptoms, fatigue, 10 lb weight gain, FERGUSON. The patient has taken no medication for relieving factors. Current pain is rated as 0/10. Patient referred to ED with concerns for new onset CHF with history of significant CAD. Pt denies LOC, headache, fevers, chills, diaphoresis, visual changes, neck pain, chest pain, nausea, vomiting, abdominal pain, back pain, melena, hematochezia, urinary symptoms, numbness, rash, or other complaints. . PAST MEDICAL HISTORY: See Below, CAD PAST SURGICAL HISTORY: See Below, CABG SOCIAL HISTORY: See Below, drinks regularly per family HOME MEDICATIONS: See Below ALLERGIES: See Below VITALS: See Below PHYSICAL EXAMINATION: GENERAL: Awake, alert, dyspneic-appearing, in no distress HENT: Normocephalic, atraumatic. Oropharynx unremarkable. EYES: Normal conjunctiva. Sclera non-icteric. NECK: Inspection normal. Non-tender. Supple. No nuchal rigidity. FROM. No masses. RESPIRATORY: Diminished in the bases and scattered rales. Normal respiratory effort. CARDIAC: Normal rate. Normal rhythm. Extremities cool and poorly perfused. Pulses equal. + JVD. GI: Soft, non-distended. No tenderness to palpation. No rebound or guarding. No masses. RECTAL: Deferred. MUSCULOSKELETAL: Atraumatic. Chest examination reveals no tenderness. The back is symmetrical on inspection without obvious abnormality. There is no CVA tenderness to palpation. No joint edema. LOWER EXTREMITIES: Calves are equal size bilaterally and non-tender. 2-3+ edema. Chronic venous discoloration. NEURO: Normal sensorium. No sensory or motor deficits noted. SKIN: Cyanosis of the hands and feet bialterally. No rash or jaundice noted. PROCEDURES: none CRITICAL CARE: none OBSERVATION NOTE: none Past Med/Surg History Medical History (Updated 05/27/23 @ 15:48 by Tripp Bowser MD) Diverticulosis of colon Adenomatous polyp of colon CAD (coronary atherosclerotic disease) Wound infection Syncope Open dislocation of right thumb Laceration of right hand Head injury Surgical History History of coronary artery bypass graft Hx of CABG H/O oral surgery Family History Mother Hypertension Dementia Hyperlipidemia Sister Hypertension Breast cancer Valvular heart disease Coronary heart disease Unknown Hyperlipidemia Grandfather Acute myocardial infarction Denies family history of Colon cancer Ovarian cancer Prostate cancer Myocardial infarction Social History Smoking Status: Former smoker Second Hand Exposure: Yes; Do You Dip or Chew Tobacco: No; Hx Alcohol Use: Yes Alcohol type: beer Hx Substance Use: No Preferred Language: Bulgarian Communication Ability: Effective Visual Impairment: Partially Limited Hearing Ability: Normal Beliefs That Will Affect Care: None marital status: Current Living Situation: Alone current occupational status: retired How many Children do You have: 3 How many Children do You have Comment: 3 step children Feels Safe at Home: Yes Safety Concerns: Feels Safe At This Time Childhood Exposure to Second-Hand Smoke: No Diet: regular during the past year weight has: remained stable Dental Care, Regularly: Yes Physical Activity Frequency: 3-4 Times per Week Seatbelt Use: always Sunscreen Use: Yes Assistive Devices: Walker Allergies Allergies Allergy/AdvReac Type Severity Reaction Status Date / Time No Known Allergies Allergy Unverified 05/27/23 07:49 Home Meds Home Medications Medication Instructions Recorded Confirmed multivitamin,[id number] 1 tab PO DAILY 11/09/18 05/27/23 (Complete Multivitamin tablet) aspirin 81 mg tablet 81 mg PO DAILY 12/11/18 05/27/23 cholecalciferol (vitamin D3) 50 50 mcg PO DAILY 06/29/22 05/27/23 mcg (2,000 unit) capsule Previous Rx's Medication Instructions Recorded atorvastatin 80 mg tablet 80 mg PO QPM #90 tabs 11/19/22 allopurinol 300 mg tablet See Rx Instructions .Route 11/25/22 .COMPLEX #90 tabs cilostazol 100 mg tablet 100 mg PO BID #180 tabs 03/21/23 metoprolol succinate 100 mg 150 mg (1.5 x 100 mg) PO DAILY 04/04/23 tablet,extended release 24 hr #180 tabs lisinopril 40 mg tablet See Rx Instructions .Route 05/16/23 .COMPLEX #90 tabs Results & Data (ED) Vital Signs Vital Signs - 24 hr 05/27/23 08:49 05/27/23 08:52 05/27/23 09:00 Temperature Temperature Source Pulse Rate 83 83 82 Pulse Rate [Apical] Pulse Rate from SpO2 Sensor 84 84 Pulse Strength [Apical] Respiratory Rate 19 19 Respiratory Depth Respiratory Pattern Blood Pressure Blood Pressure [Right Arm] Blood Pressure Mean Blood Pressure Mean [Right Arm] Blood Pressure Position Pulse Oximetry 100 100 Oxygen Delivery Method Nasal Cannula Oxygen Flow Rate 5 Sepsis Recent Fever Within 48 Hours Sepsis New/Unexplained Change in Mental Status Sepsis Action Taken by Nursing 05/27/23 09:06 05/27/23 09:08 05/27/23 09:08 Temperature Temperature Source Pulse Rate 81 81 Pulse Rate [Apical] Pulse Rate from SpO2 Sensor 82 Pulse Strength [Apical] Respiratory Rate 22 20 Respiratory Depth Normal Respiratory Pattern Blood Pressure 126/83 118/76 Blood Pressure [Right Arm] Blood Pressure Mean 97 93 Blood Pressure Mean [Right Arm] Blood Pressure Position Sitting Pulse Oximetry 100 100 Oxygen Delivery Method Nasal Cannula Nasal Cannula Oxygen Flow Rate 5 5 Sepsis Recent Fever Within 48 Hours No Sepsis New/Unexplained Change in Mental Status No Sepsis Action Taken by Nursing No Action Required 05/27/23 09:10 05/27/23 09:10 05/27/23 09:14 Temperature Temperature Source Pulse Rate 81 Pulse Rate [Apical] Pulse Rate from SpO2 Sensor 81 Pulse Strength [Apical] Respiratory Rate 22 Respiratory Depth Respiratory Pattern Blood Pressure 126/83 Blood Pressure [Right Arm] Blood Pressure Mean 90 Blood Pressure Mean [Right Arm] Blood Pressure Position Pulse Oximetry 100 Oxygen Delivery Method Nasal Cannula Oxygen Flow Rate 5 Sepsis Recent Fever Within 48 Hours Sepsis New/Unexplained Change in Mental Status Sepsis Action Taken by Nursing 05/27/23 09:30 05/27/23 09:30 05/27/23 09:53 Temperature Temperature Source Pulse Rate 81 Pulse Rate [Apical] Pulse Rate from SpO2 Sensor 107 H Pulse Strength [Apical] Respiratory Rate 20 Respiratory Depth Respiratory Pattern Blood Pressure 99/76 L Blood Pressure [Right Arm] Blood Pressure Mean 79 Blood Pressure Mean [Right Arm] Blood Pressure Position Pulse Oximetry 91 91 Oxygen Delivery Method Nasal Cannula Nasal Cannula Oxygen Flow Rate 5 5 Sepsis Recent Fever Within 48 Hours Sepsis New/Unexplained Change in Mental Status Sepsis Action Taken by Nursing 05/27/23 09:53 05/27/23 10:00 05/27/23 10:00 Temperature Temperature Source Pulse Rate 83 82 Pulse Rate [Apical] Pulse Rate from SpO2 Sensor 84 80 Pulse Strength [Apical] Respiratory Rate 27 H 23 Respiratory Depth Respiratory Pattern Blood Pressure 120/82 Blood Pressure [Right Arm] Blood Pressure Mean 94 Blood Pressure Mean [Right Arm] Blood Pressure Position Pulse Oximetry 91 99 Oxygen Delivery Method Nasal Cannula Nasal Cannula Oxygen Flow Rate 5 5 Sepsis Recent Fever Within 48 Hours Sepsis New/Unexplained Change in Mental Status Sepsis Action Taken by Nursing 05/27/23 10:30 05/27/23 10:56 Temperature 36.4 C L Temperature Source Oral Pulse Rate 82 Pulse Rate [Apical] 81 Pulse Rate from SpO2 Sensor 80 Pulse Strength [Apical] Normal Respiratory Rate 20 19 Respiratory Depth Normal Respiratory Pattern Regular Blood Pressure 120/82 Blood Pressure [Right Arm] 114/69 Blood Pressure Mean 94 Blood Pressure Mean [Right Arm] 84 Blood Pressure Position Pulse Oximetry 100 99 Oxygen Delivery Method Nasal Cannula Oxygen Flow Rate 5 Sepsis Recent Fever Within 48 Hours Sepsis New/Unexplained Change in Mental Status Sepsis Action Taken by Nursing Laboratory Data 05/27/23 08:57 05/27/23 08:57 Lab Results 05/27/23 05/27/23 05/27/23 Range/Units 08:57 09:05 09:24 WBC 6.20 (4.8-10.8) K/ul RBC 5.46 (4.70-6.10) M/uL Hgb 16.5 (14.0-18.0) g/dl Hct 51.0 (42.0-52.0) % MCV 93.4 (80.0-100.0) fL MCH 30.2 (25.0-34.0) pg MCHC 32.4 (32.0-36.0) g/dL RDW Std Deviation 61.1 H (36.4-46.3) fL RDW Coeff of Rolan 18.6 H (11.5-14.5) % Plt Count 221 (130-400) K/uL MPV 11.0 (9.4-12.4) fL Immature Gran % (Auto) 0.3 % Neut % (Auto) 81.6 % Lymph % (Auto) 11.6 % Ness % (Auto) 6.0 % Eos % (Auto) 0.2 % Baso % (Auto) 0.3 % Neut # (Auto) 5.06 (1.40-6.50) K/uL Lymph # (Auto) 0.72 L (1.20-3.40) K/uL Ness # (Auto) 0.37 (0.11-0.59) K/uL Eos # (Auto) 0.01 (0.00-0.50) K/uL Baso # (Auto) 0.02 (0.00-0.20) K/uL Immature Gran # (Auto) 0.02 (0.01-0.20) K/uL ABG pH 7.34 L (7.35-7.45) ABG pCO2 27 L (35-46) mmHg ABG pO2 120 H (80-95) mmHg ABG HCO3 15 L (19-24) mmol/L ABG O2 Saturation 99.0 H (90-95) % ABG Base Excess -9.6 L (-9-1.8) mEq/L López Test Pos (Pos) Oxygen Given 4.5 L Sodium 136 (136-145) mmol/L Potassium 5.1 (3.5-5.1) mmol/L Chloride 104 (98-107) mmol/L Carbon Dioxide 17 L (21-32) mmol/L Anion Gap 15 H (3-11) BUN 37 H (6-23) mg/dl Creatinine 1.32 (0.6-1.4) mg/dl Est Cr Clr Drug Dosing Not Reportable Est GFR ( Amer) 56.6 ml/min Est GFR (Non-Af Amer) 48.8 ml/min BUN/Creatinine Ratio 28.0 H (10-20) Glucose 100 H (70-99(Fasting)) mg/dl Lactate 5.5 H* (0.4-2.0) mmol/L Calcium 9.8 (8.6-10.3) mg/dl Magnesium 2.1 (1.7-2.4) mg/dl Total Bilirubin 1.7 H (0.2-1.0) mg/dl AST 40 H (13-39) U/L ALT 42 (7-52) U/L Alkaline Phosphatase 80 (34-104) U/L Troponin I High Sens 50.4 H* (0-20) pg/ml B-Natriuretic Peptide > 4700 H (0-100) pg/ml Total Protein 6.5 (6.0-8.3) gm/dl Albumin 3.8 (3.4-5.0) gm/dl Globulin 2.7 (2.5-4.0) gm/dl Albumin/Globulin Ratio 1.4 (0.9-2) TSH 26.763 H (0.300-4.500) uIu/ml Free T4 0.77 (0.61-1.60) ng/dl Urine Color Dark Yellow Urine Appearance Cloudy A (Clear) Urine pH 5.0 (4.5-7.5) Ur Specific [place] 1.026 (1.000-1.030) Urine Protein 1+ H (Negative) Urine Glucose (UA) Negative (Negative) Urine Ketones Trace H (Negative) Urine Blood Negative (Negative) Urine Nitrite Positive A (Negative) Urine Bilirubin 2+ H (Negative) Urine Urobilinogen Negative (Negative) Ur Leukocyte Esterase Trace H (Negative) Urine WBC (Auto) 1-5 (0-5) /hpf Urine RBC (Auto) 5-10 H (0-4) /hpf U Hyaline Cast (Auto) 5-10 H (0-5) /lpf U Epithel Cells (Auto) 10-20 H (0-5) /lpf Urine Bacteria (Auto) Negative (Negative) 05/27/23 Range/Units 10:50 WBC (4.8-10.8) K/ul RBC (4.70-6.10) M/uL Hgb (14.0-18.0) g/dl Hct (42.0-52.0) % MCV (80.0-100.0) fL MCH (25.0-34.0) pg MCHC (32.0-36.0) g/dL RDW Std Deviation (36.4-46.3) fL RDW Coeff of Rolan (11.5-14.5) % Plt Count (130-400) K/uL MPV (9.4-12.4) fL Immature Gran % (Auto) % Neut % (Auto) % Lymph % (Auto) % Ness % (Auto) % Eos % (Auto) % Baso % (Auto) % Neut # (Auto) (1.40-6.50) K/uL Lymph # (Auto) (1.20-3.40) K/uL Ness # (Auto) (0.11-0.59) K/uL Eos # (Auto) (0.00-0.50) K/uL Baso # (Auto) (0.00-0.20) K/uL Immature Gran # (Auto) (0.01-0.20) K/uL ABG pH (7.35-7.45) ABG pCO2 (35-46) mmHg ABG pO2 (80-95) mmHg ABG HCO3 (19-24) mmol/L ABG O2 Saturation (90-95) % ABG Base Excess (-9-1.8) mEq/L López Test (Pos) Oxygen Given Sodium (136-145) mmol/L Potassium (3.5-5.1) mmol/L Chloride (98-107) mmol/L Carbon Dioxide (21-32) mmol/L Anion Gap (3-11) BUN (6-23) mg/dl Creatinine (0.6-1.4) mg/dl Est Cr Clr Drug Dosing Est GFR ( Amer) ml/min Est GFR (Non-Af Amer) ml/min BUN/Creatinine Ratio (10-20) Glucose (70-99(Fasting)) mg/dl Lactate 3.0 H* (0.4-2.0) mmol/L Calcium (8.6-10.3) mg/dl Magnesium (1.7-2.4) mg/dl Total Bilirubin (0.2-1.0) mg/dl AST (13-39) U/L ALT (7-52) U/L Alkaline Phosphatase (34-104) U/L Troponin I High Sens 92.0 H* D (0-20) pg/ml B-Natriuretic Peptide (0-100) pg/ml Total Protein (6.0-8.3) gm/dl Albumin (3.4-5.0) gm/dl Globulin (2.5-4.0) gm/dl Albumin/Globulin Ratio (0.9-2) TSH (0.300-4.500) uIu/ml Free T4 (0.61-1.60) ng/dl Urine Color Urine Appearance (Clear) Urine pH (4.5-7.5) Ur Specific [place] (1.000-1.030) Urine Protein (Negative) Urine Glucose (UA) (Negative) Urine Ketones (Negative) Urine Blood (Negative) Urine Nitrite (Negative) Urine Bilirubin (Negative) Urine Urobilinogen (Negative) Ur Leukocyte Esterase (Negative) Urine WBC (Auto) (0-5) /hpf Urine RBC (Auto) (0-4) /hpf U Hyaline Cast (Auto) (0-5) /lpf U Epithel Cells (Auto) (0-5) /lpf Urine Bacteria (Auto) (Negative) Administered Medications Allopurinol (Allopurinol 300 Mg Tab) 300 mg PO QAM ALEX Stop: 06/26/23 12:59 Last Admin: 05/27/23 14:14 Dose: 300 mg Documented By: MANDY Furosemide (Furosemide 40 Mg/4 Ml Vial) 40 mg IV BID17 ALEX Stop: 06/26/23 16:59 Last Admin: 05/27/23 17:50 Dose: 40 mg Documented By: ABNER Levothyroxine Sodium (Levothyroxine Sodium 25 Mcg Tablet) 25 mcg PO Q2D@0630 ALEX Stop: 06/26/23 12:59 Last Admin: 05/27/23 14:14 Dose: 25 mcg Documented By: MANDY Discontinued Medications Furosemide (Furosemide 40 Mg/4 Ml Vial) 40 mg IV ONE ONE Stop: 05/27/23 08:57 Last Admin: 05/27/23 09:19 Dose: 40 mg Documented By: NAN Ceftriaxone Sodium (Rocephin) 2,000 mg in 50 mls @ 100 mls/hr IV NOW STA Stop: 05/27/23 10:01 Last Infusion: 05/27/23 11:19 Dose: Infused Documented By: Infusion: 05/27/23 10:34 Dose: 100 mls/hr Documented By: Infusion: 05/27/23 09:42 Dose: 0 mls/hr Documented By: Admin: 05/27/23 09:41 Dose: 100 mls/hr Documented By: NAN Metoprolol Succinate (Metoprolol Succ 50mg Ext Rel Tab) 150 mg PO NOW STA Stop: 05/27/23 11:14 Last Admin: 05/27/23 11:37 Dose: 150 mg Documented By: CASSIE Imaging Data Radiologist's Impression: Chest X-Ray 05/27/23 08:56 XR chest 1V portable HISTORY: weakness COMPARISON: None. FINDINGS: There are low lung volumes. No pneumothorax. The heart is enlarged. There are poststernotomy changes. No acute fractures identified. Small bilateral pleural effusions and bibasilar densities. There is mild vascular congestion without overt edema. IMPRESSION: 1. Cardiomegaly with mild congestive change. 2. Small bilateral pleural effusions and patchy bibasilar densities. This may represent atelectasis or a pneumonia. ACT 112: Negative or not required by law. Electronically signed by: Josh Fuentes M.D. 05/27/2023 10:33 AM Discharge Plan Visit Data Chief Complaint: Shortness of Breath/Dyspnea Stated Complaint: CARDIAC SX ED Provider: Tripp Bowser Discharge Problem: Acute CHF, Elevated troponin, Elevated LFTs, Acidosis, lactic Patient Disposition: Admitted As Inpatient Discharge Instructions Interventions: ED Discharge Assessment Last Done: 05/27/23 11:35
--- NOTE | 2023-05-27 16:33 | XCELERA ---
[id number]
[2023-05-27] MEDS: FUROSEMIDE 40 MG/4 ML VIAL IV SCH (17:50)
[2023-05-27] MEDS: ATORVASTATIN 40 MG TAB PO SCH (20:25)
[2023-05-27] MEDS: HEPARIN SOD 5,000 UNIT/0.5 ML VIAL SQ SCH (20:25)
--- NOTE | 2023-05-27 21:35 | Cardiology Consultation ---
Date of Consultation May 27, 2023 Assessment & Plan (1) Acute HFrEF (heart failure with reduced ejection fraction): 2. 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 Bilateral lower extremity PADbilateral HEMANT, severe right SFA 4. Hypertension 5. Hypothyroidism 6. Questionable UTI 7. Mild cognitive impairment Admitted today with acute decompensated heart failure in the setting of newly noted dilated cardiomyopathy, EF 15% Possible ischemic cardiomyopathy but low suspicion AHF precipitated by ACS. Unclear alcohol history. LV dysfunction out of proportion for degree of hypothyroidism. Relatively low suspicion amyloid. Agree with IV diuresis, continue Lasix 40 mg twice daily. Target negative at least >1 L Salt restriction, daily weights Hold Toprol-XL for now. Hold lisinopril. Likely start Entresto at some point pending renal function Continue current aspirin, statin. Agree with stopping cilostazol Thyroid replacement Plan for cardiac catheterization during this hospitalization at some point after diuresis Check SPEP/UPEP Will follow History of Present Illness Attending Physician: Mike Velasquez MD History of Present Illness Mr. Marshall is a very pleasant 83 year-old man admitted with acute heart failure. His primary senior technical analyst is Dr. Lockwood. He has no history of heart failure. No documented prior echo. He has a history of coronary artery disease post four- vessel CABG 04/2001, hypertension, dyslipidemia. Previously seen by me 01/2023 due to lower extremity PAD with moderate to severe claudication. CTA 02/2023 bilateral common iliac disease along with previously noted severe right proximal SFA. Presented today for elective lower extremity angiogram. On arrival patient tachypneic, hypoxic, cyanotic and appeared grossly volume overloaded. He endorses 10 pound weight gain over the last few weeks. Also reported that today was weak to the point that he was unable to get down the stairs (21) to his ride without assistance. Patient sent to ED where ECG sinus with LVH QRS widening, PRWP and borderline inferior infarct previously seen on ECG 2014. Chest x-ray confirmed bilateral pleural effusions, BNP >4700, minimally elevated HS TropI. Metabolic acidosis with lactate of 5 down to 3. TSH 26, normal FT4. SCR up from 0.9-1.3. Echo showed dilated LV with global LV dysfunction EF 15%. Mild to moderate AI, mild to moderate mild. Also had dilated RV with moderate to severe dysfunction. Dilated IVC Social history: Lives by himself in an apartment. No nearby family. States has good friends that help. 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 Smoked on and off for 20 years quit 2001. Allergies Allergy/AdvReac Type Severity Reaction Status Date / Time No Known Allergies Allergy Unverified 05/27/23 07:49 Home Medications Medication Instructions Recorded Confirmed Type multivitamin,[id number] 1 tab PO DAILY 11/09/18 05/27/23 History (Complete Multivitamin tablet) aspirin 81 mg tablet 81 mg PO DAILY 12/11/18 05/27/23 History cholecalciferol (vitamin D3) 50 50 mcg PO DAILY 06/29/22 05/27/23 History mcg (2,000 unit) capsule atorvastatin 80 mg tablet 80 mg PO QPM #90 tabs 11/19/22 05/27/23 Rx allopurinol 300 mg tablet See Rx Instructions .Route 11/25/22 05/27/23 Rx .COMPLEX #90 tabs cilostazol 100 mg tablet 100 mg PO BID #180 tabs 03/21/23 05/27/23 Rx metoprolol succinate 100 mg 150 mg (1.5 x 100 mg) PO DAILY 04/04/23 05/27/23 Rx tablet,extended release 24 hr #180 tabs lisinopril 40 mg tablet See Rx Instructions .Route 05/16/23 05/27/23 Rx .COMPLEX #90 tabs Patient History Medical History (Updated 05/27/23 @ 15:48 by Tripp Bowser MD) Diverticulosis of colon Adenomatous polyp of colon CAD (coronary atherosclerotic disease) Wound infection Syncope Open dislocation of right thumb Laceration of right hand Head injury Surgical History History of coronary artery bypass graft Hx of CABG H/O oral surgery Family History Mother Hypertension Dementia Hyperlipidemia Sister Hypertension Breast cancer Valvular heart disease Coronary heart disease Unknown Hyperlipidemia Grandfather Acute myocardial infarction Denies family history of Colon cancer Ovarian cancer Prostate cancer Myocardial infarction Social History Smoking Status: Former smoker Second Hand Exposure: Yes; Do You Dip or Chew Tobacco: No; Hx Alcohol Use: Yes Alcohol type: beer Hx Substance Use: No Preferred Language: Slovenian Communication Ability: Effective Visual Impairment: Partially Limited Hearing Ability: Normal Beliefs That Will Affect Care: None marital status: Current Living Situation: Alone current occupational status: retired How many Children do You have: 3 How many Children do You have Comment: 3 step children Feels Safe at Home: Yes Safety Concerns: Feels Safe At This Time Childhood Exposure to Second-Hand Smoke: No Diet: regular during the past year weight has: remained stable Dental Care, Regularly: Yes Physical Activity Frequency: 3-4 Times per Week Seatbelt Use: always Sunscreen Use: Yes Assistive Devices: Walker Review of Systems Review of Systems: All systems reviewed & are unremarkable except as noted in HPI & below Physical Exam Physical Exam: General: Comfortable HEENT: Sclerae anicteric Lungs: Decreased breath sounds at bases bilateral Cardiac: Regular with occasional premature beats 2 out of 6 holosystolic at apex Vascular: 2+ radial, nonpalpable DP/PT Abdomen: Soft, nontender Extremities: Cyanosis improved. 2+ edema to below shins with some weeping Neuro: Nonfocal Psych: Confused this evening that he was in [place], but easily reoriented Results & Data Vital Signs (Past 12 Hours) Vital Signs Temp Pulse Pulse Resp BP BP BP 05/27/23 19:20 97.7 F 91 H 18 112/65 05/27/23 18:43 82 05/27/23 15:51 97.7 F 79 20 115/66 05/27/23 14:35 84 05/27/23 10:56 97.5 F L 81 19 114/69 05/27/23 10:30 82 20 120/82 05/27/23 10:00 120/82 05/27/23 10:00 82 23 05/27/23 09:53 83 27 H 05/27/23 09:53 99/76 L Pulse Ox O2 Del Method O2 Flow Rate 05/27/23 19:20 97 Room Air 05/27/23 18:43 05/27/23 15:51 99 Nasal Cannula 05/27/23 14:35 05/27/23 10:56 99 Nasal Cannula 5 05/27/23 10:30 100 05/27/23 10:00 05/27/23 10:00 99 Nasal Cannula 5 05/27/23 09:53 91 Nasal Cannula 5 05/27/23 09:53 PG Care Time/CCT Total # of Minutes Spent Total Time Spent with Patient: Total time spent is greater than 50% in coordination of care (as documented) at patient's floor/unit and/or counseling patient: Coding Level of Care Code 84747 INT INP/OBS CARE 3/75MIN Diagnoses Acute HFrEF (heart failure with reduced ejection fraction) I50.21
[2023-05-28 07:17] LABS: Basophils # (auto) 0.01 K/uL (0.00-0.20); Basophils % (auto) 0.1 %; Eosinophils # (auto) 0.03 K/uL (0.00-0.50); Eosinophils % (auto) 0.4 %; Hematocrit (blood only) 43.9 % (42.0-52.0); Hemoglobin 14.3 g/dl (14.0-18.0); Immature Granulocytes # (auto) 0.03 K/uL (0.01-0.20); Immature Granulocytes % (auto) 0.4 %; Lymphocytes # (auto) 0.93 K/uL (1.20-3.40); Lymphocytes % (auto) 11.4 %; Mean Corpuscular Hemoglobin 29.9 pg (25.0-34.0); Mean Corpuscular Hgb Conc 32.6 g/dL (32.0-36.0); Mean Corpuscular Volume 91.6 fL (80.0-100.0); Mean Platelet Volume 11.1 fL (9.4-12.4); Monocytes # (auto) 0.64 K/uL (0.11-0.59); Monocytes % (auto) 7.9 %; Neutrophils % (auto) 79.8 %; Platelet Count 174 K/uL (130-400); RDW Coefficient of Variation 18.2 % (11.5-14.5); RDW Standard Deviation 59.6 fL (36.4-46.3); Red Blood Count 4.79 M/uL (4.70-6.10); White Blood Count 8.14 K/ul (4.8-10.8)
[2023-05-28 07:51] LABS: BUN Creatinine Ratio 36.2 (10-20); Calcium 8.6 mg/dl (8.6-10.3); Creatinine Clr Calc Pharmacy 52.7 ml/min; Est GFR (African American) 74.7 ml/min; Est GFR (Non-African American) 64.4 ml/min; Potassium 3.7 mmol/L (3.5-5.1)
[2023-05-28] MEDS: ASPIRIN 81 MG ECTAB PO SCH (08:56)
[2023-05-28] MEDS ORDERED: METOPROLOL SUCC 50MG EXT REL TAB PO SCH (09:00)
[2023-05-28] MEDS: cefTRIAXone SODIUM 2,000 MG in DEXTROSE 5 % MINI-B 50 ML IV SCH (09:03)
--- NOTE | 2023-05-28 10:20 | Hospitalist Progress Note ---
Date of Service May 28, 2023 Assessment & Plan (1) Acute HFrEF (heart failure with reduced ejection fraction): Plan: Patient presented for a leg angiogram in 05/27; however, he was hypoxic, tachypneic, and cyanotic on arrival Found to be in acute decompensated congestive heart failure Ejection fraction 15% Cardiology is on consult Continue diuresis with IV Lasix 40 mg twice daily Monitor input and output, daily weight (2) UTI (urinary tract infection): Plan: UA positive on arrival; unclear if this is a contaminant Clinically, patient denies dysuria, burning with urination, or urinary retention Covered with Rocephin in the ED [place] placed in the ED Continue Rocephin 2000 mg IV q24h (3) Cardiomyopathy: Plan: Cardiomyopathy, etiology is unknown next ejection fraction 15% Continue diuresis for now According to cardiology, there is plans for cardiac cath in this admission (4) Elevated TSH: Plan: TSH elevated at 26.763 on arrival Free T4 WNL at 0.77 Last TSH on 01/07/23 was 3.455 No prior diagnosis of hypothyroidism Patient denies hx of thyroid issues Reached out to endocrinology, who recommended levothyroxine 25 mcg every other day (5) Elevated troponin: Plan: Troponin elevated at 50.4-->92.0 on arrival Clinically, patient denies chest pain Continuous telemetry monitoring Trend troponin (6) PAD (peripheral artery disease): Plan: Continue aspirin (7) Hypercholesterolemia: Plan: Continue atorvastatin (8) Hypertension: Plan: Hold lisinopril in the setting of borderline YANELI Continue metoprolol (9) Gout, joint: Plan: Continue allopurinol Plan Disposition: Admit to PCU telemetry Full code AHA, low-sodium (1500mL fluid restriction) VTE PPx: Heparin 5000u SQ q12h Admission and Anticipated Discharge Date Admission Date: May 27, 2023 Subjective Patient seen and examined, feels so much better shortness of breath is improved but states he still feels that his 10 pounds overweight Review of Systems Review of Systems: All systems reviewed are negative, apart from the ones contained in the history. Physical Exam Physical Exam: The patient is awake, alert and oriented 3, well developed and well nourished, normocephalic and atraumatic, lying in bed and in no acute distress. HEENT--PERRL, EOMI, mucous membranes and oropharynx mildly dry Neck--supple. No JVD. No bruits. Thyroid normal, trachea midline, no adenopathy. Heart--normal S1 and S2. No murmurs, rubs or gallops. Lungs--clear bilaterally, no respiratory distress, no accessory muscle use. Abdomen--normal bowel sounds and soft. Extremities--no cyanosis or clubbing. Bilateral pitting leg edema. Dermatologic--normal skin turgor, normal color, no abnormal lymph nodes, no rash. Neurologic--cranial nerves II through XII grossly intact. Rheumatologic--normal range of motion. Psychiatric--normal affect. Results & Data Results & Data Vital Signs (Past 12 Hours) Vital Signs Temp Pulse Pulse Resp BP Pulse Ox O2 Del Method 05/28/23 09:37 88 05/28/23 07:35 97.9 F 86 18 108/63 90 Room Air 05/28/23 04:00 97.5 F L 84 18 120/69 95 Room Air 05/27/23 23:49 79 05/27/23 22:43 98.1 F 85 18 114/71 97 Room Air PG Care Time/CCT Total # of Minutes Spent Total Time Spent with Patient: Total time spent is greater than 50% in coordination of care (as documented) at patient's floor/unit and/or counseling patient: Coding Level of Care Code 76963 SUB INP/OBS CARE 2/35MIN Diagnoses Acute HFrEF (heart failure with reduced ejection fraction) I50.21 UTI (urinary tract infection) N39.0 Cardiomyopathy I42.9 Elevated TSH R79.89 Elevated troponin R79.89 PAD (peripheral artery disease) I73.9 Hypercholesterolemia E78.00 Hypertension I10 Gout, joint M10.9 Time Spent (min) 35
--- NOTE | 2023-05-28 12:16 | Cardiology Progress Note ---
Date of Service May 28, 2023 Assessment & Plan (1) Acute HFrEF (heart failure with reduced ejection fraction): Plan: 2. 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 Bilateral lower extremity PADbilateral HEMANT, severe right SFA 4. Hypertension 5. Hypothyroidism 6. Questionable UTI 7. Mild cognitive impairment Diuresed well yesterday, negative more than 1.5 L Dyspnea improved, off oxygen this morning. Creatinine improved Persistent congestion on exam Etiology of cardiomyopathy unclear. Pending ischemic evaluation. Question related to alcohol intake (3 drinks a day). Also plan to evaluate amyloid. Continued IV diuresis with Lasix 40 mg twice daily. Target negative at least >1 L, Salt restriction, daily weights Restart low-dose metoprolol as BP allows Hold lisinopril. Likely start Entresto at some point pending renal function Continue current aspirin, statin. Thyroid replacement Plan for cardiac catheterization during this hospitalization at some point after diuresis Check SPEP/UPEP Will follow Admission and Anticipated Discharge Date Admission Date: May 27, 2023 Subjective Feeling much improved this morning. Denies significant shortness of breath. States had some difficulty sleeping overnight. Telemetry reviewedprimarily sinus rhythm with PACs. Brief episodes NSVT <5 beats Review of Systems Review of Systems: All systems reviewed & are unremarkable except as noted in HPI & below Physical Exam Physical Exam: General: Comfortable HEENT: Sclerae anicteric Lungs: Decreased breath sounds at bases bilateral right greater than left Cardiac: Regular with occasional premature beats 2 out of 6 holosystolic at apex. JVP to jaw Vascular: 2+ radial, nonpalpable DP/PT Abdomen: Soft, nontender Extremities: Cyanosis improved. 2-3+ edema to below the knees, mild erythema, no weeping improved from yesterday Neuro: Nonfocal Psych: Alert and oriented this morning Results & Data Vital Signs (Past 12 Hours) Vital Signs Temp Pulse Pulse Resp BP Pulse Ox O2 Del Method 05/28/23 11:48 97.9 F 85 18 99/63 L 92 Room Air 05/28/23 09:37 88 05/28/23 09:00 Room Air 05/28/23 07:35 97.9 F 86 18 108/63 90 Room Air 05/28/23 04:00 97.5 F L 84 18 120/69 95 Room Air PG Care Time/CCT Total # of Minutes Spent Total Time Spent with Patient: Total time spent is greater than 50% in coordination of care (as documented) at patient's floor/unit and/or counseling patient: Coding Level of Care Code 55776 SUB INP/OBS CARE MIN Diagnoses Acute HFrEF (heart failure with reduced ejection fraction) I50.21
--- NOTE | 2023-05-28 21:29 | Electrocardiogram Report ---
Test Reason : Blood Pressure : / mmHG Vent. Rate : 084 BPM Atrial Rate : 084 BPM P-R Int : 166 ms QRS Dur : 132 ms QT Int : 428 ms P-R-T Axes : 030 -51 147 degrees QTc Int : 505 ms Sinus rhythm with Premature atrial complexes Left axis deviation Non-specific intra-ventricular conduction block Minimal voltage criteria for LVH, may be normal variant Cannot rule out Septal infarct , age undetermined Possible Anterior infarct , age undetermined Inferior infarct (cited on or before 27-MAY-2023) Abnormal ECG When compared with ECG of 03-AUG-2014 15:23, Premature atrial complexes are now Present Borderline criteria for Anterior infarct are now Present Confirmed by Sergo John ([id number]) on 05/28/2023 9:29:36 PM Referred By: Confirmed By:Sergo John
[2023-05-29 08:02] LABS: Basophils # (auto) 0.02 K/uL (0.00-0.20); Basophils % (auto) 0.3 %; Eosinophils # (auto) 0.03 K/uL (0.00-0.50); Eosinophils % (auto) 0.4 %; Hematocrit (blood only) 42.5 % (42.0-52.0); Hemoglobin 14.2 g/dl (14.0-18.0); Immature Granulocytes # (auto) 0.02 K/uL (0.01-0.20); Immature Granulocytes % (auto) 0.3 %; Lymphocytes # (auto) 1.39 K/uL (1.20-3.40); Lymphocytes % (auto) 19.8 %; Mean Corpuscular Hemoglobin 30.2 pg (25.0-34.0); Mean Corpuscular Hgb Conc 33.4 g/dL (32.0-36.0); Mean Corpuscular Volume 90.4 fL (80.0-100.0); Mean Platelet Volume 10.9 fL (9.4-12.4); Monocytes # (auto) 0.56 K/uL (0.11-0.59); Neutrophils # (auto) 5.01 K/uL (1.40-6.50); Neutrophils % (auto) 71.2 %; Platelet Count 151 K/uL (130-400); RDW Coefficient of Variation 17.8 % (11.5-14.5); RDW Standard Deviation 57.9 fL (36.4-46.3); White Blood Count 7.03 K/ul (4.8-10.8)
[2023-05-29 08:05] LABS: BUN Creatinine Ratio 40.4 (10-20); Calcium 8.2 mg/dl (8.6-10.3); Creatinine Clr Calc Pharmacy 62.1 ml/min; Est GFR (African American) 90.4 ml/min; Potassium 3.7 mmol/L (3.5-5.1)
[2023-05-29] MEDS: METOPROLOL SUCC 50MG EXT REL TAB PO SCH (08:38)
--- NOTE | 2023-05-29 10:16 | Hospitalist Progress Note ---
Date of Service May 29, 2023 Assessment & Plan (1) Acute HFrEF (heart failure with reduced ejection fraction): Plan: Patient presented for a leg angiogram in 05/27; however, he was hypoxic, tachypneic, and cyanotic on arrival Found to be in acute decompensated congestive heart failure Ejection fraction 15% Cardiology is on consult Continue diuresis with IV Lasix 40 mg twice daily Patient is diuresing well, 2.2 L negative fluid balance over the past 24 hours Continue diuresis Monitor input and output, daily weight (2) UTI (urinary tract infection): Plan: UA positive on arrival; unclear if this is a contaminant Clinically, patient denies dysuria, burning with urination, or urinary retention Covered with Rocephin in the ED [place] placed in the ED Continue Rocephin 2000 mg IV q24h Monitor urine cultures (3) Cardiomyopathy: Plan: Cardiomyopathy, etiology is unknown next ejection fraction 15% Continue diuresis for now According to cardiology, there is plans for cardiac cath in this admission (4) Elevated TSH: Plan: TSH elevated at 26.763 on arrival Free T4 WNL at 0.77 Last TSH on 01/07/23 was 3.455 No prior diagnosis of hypothyroidism Patient denies hx of thyroid issues Reached out to endocrinology, who recommended levothyroxine 25 mcg every other d ay (5) Elevated troponin: Plan: Troponin elevated at 50.4-->92.0 on arrival Clinically, patient denies chest pain Continuous telemetry monitoring Trend troponin (6) PAD (peripheral artery disease): Plan: Continue aspirin (7) Hypercholesterolemia: Plan: Continue atorvastatin (8) Hypertension: Plan: Hold lisinopril in the setting of borderline YANELI Continue metoprolol (9) Gout, joint: Plan: Continue allopurinol Plan Disposition: Continue to monitor in the hospital, hopefully in this admission patient will have cardiac cath Full code AHA, low-sodium (1500mL fluid restriction) VTE PPx: Heparin 5000u SQ q12h Admission and Anticipated Discharge Date Admission Date: May 27, 2023 Subjective Patient seen and examined today, his symptoms have much improved, shortness of breath is much improved Review of Systems Review of Systems: All systems reviewed are negative, apart from the ones contained in the history. Physical Exam Physical Exam: The patient is awake, alert and oriented 3, well developed and well nourished, normocephalic and atraumatic, lying in bed and in no acute distress. HEENT--PERRL, EOMI, mucous membranes and oropharynx mildly dry Neck--supple. No JVD. No bruits. Thyroid normal, trachea midline, no adenopathy. Heart--normal S1 and S2. No murmurs, rubs or gallops. Lungs--clear bilaterally, no respiratory distress, no accessory muscle use. Abdomen--normal bowel sounds and soft. Extremities--no cyanosis or clubbing. Bilateral pitting leg edema. Dermatologic--normal skin turgor, normal color, no abnormal lymph nodes, no rash. Neurologic--cranial nerves II through XII grossly intact. Rheumatologic--normal range of motion. Psychiatric--normal affect. Results & Data Results & Data Vital Signs (Past 12 Hours) Vital Signs Temp Pulse Pulse Pulse Resp BP Pulse Ox 05/29/23 07:50 97.5 F L 105 H 18 117/71 91 05/29/23 07:29 105 H 05/29/23 03:15 97.5 F L 106 H 18 105/67 92 05/28/23 23:00 91 H 05/28/23 22:35 97.5 F L 80 18 107/60 93 O2 Del Method 05/29/23 07:50 Room Air 05/29/23 07:29 05/29/23 03:15 Room Air 05/28/23 23:00 05/28/23 22:35 Room Air PG Care Time/CCT Total # of Minutes Spent Total Time Spent with Patient: Total time spent is greater than 50% in coordination of care (as documented) at patient's floor/unit and/or counseling patient: Coding Level of Care Code 38195 SUB INP/OBS CARE 2/35MIN Diagnoses Acute HFrEF (heart failure with reduced ejection fraction) I50.21 UTI (urinary tract infection) N39.0 Cardiomyopathy I42.9 Elevated TSH R79.89 Elevated troponin R79.89 PAD (peripheral artery disease) I73.9 Hypercholesterolemia E78.00 Hypertension I10 Gout, joint M10.9 Time Spent (min) 35
--- NOTE | 2023-05-29 10:38 | Cardiology Progress Note ---
Date of Service May 29, 2023 Assessment & Plan (1) Acute HFrEF (heart failure with reduced ejection fraction): Plan: EF 15%, global LV dysfunction Pending ischemic evaluation. Question related to alcohol intake (3 drinks a day). Question eval amyloid 2. 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 Bilateral lower extremity PADclaudication, bilateral HEMANT, severe right SFA stenosis 4. New onset atrial fibrillation with RVRasymptomatic, [id number] 5, reasonably rate controlled 5. Hypertensionstable off home meds 6. Hypothyroidismnew, started on Synthroid 7. Questionable UTIbeing covered with ceftriaxone, blood cultures NGTD 8. Cognitive impairment with intermittent confusionlives independently, awaiting PT OT eval 9. NSVTasymptomatic, <8 beats Continues to diurese well, congestion much improved Renal function improved New onset atrial fibrillation overnight, heart rates in 100s to 110s, asymptomatic. Continued IV diuresis with Lasix 40 mg twice daily Agree with restarted toprol XL> titrate as needed--> OK with HRs 110s and below Supplement electrolytes, K >4, mag >2 Lisinopril on hold. Plan to start Entresto prior to discharge Continue current statin -Plan on cardiac catheterization tomorrow morning. Please keep NPO past midnight. --Start Eliquis today. Hold AM dose tomorrow and resume tomorrow evening post cath. Can stop ASA. Will follow Admission and Anticipated Discharge Date Admission Date: May 27, 2023 Subjective Feeling well this morning. No chest pain. Breathing much improved from admission. Denies lower extremity pain. -2 L yesterday Into new A-fib overnight around 11:00pm. Heart rates primarily symptoms in the 100s to 110s since. Asymptomatic. Review of Systems Review of Systems: All systems reviewed & are unremarkable except as noted in HPI & below Physical Exam Physical Exam: General: Comfortable HEENT: Sclerae anicteric Lungs: Decreased breath sounds at bases bilateral right greater than left (improved) Cardiac: Irregularly irregular, no murmurs Vascular: 2+ radial, nonpalpable DP/PT Abdomen: Soft, nontender Extremities: Cyanosis improved. 1-2+ edema to shins, mild erythema/stasis dermatitis. No weeping Neuro: Nonfocal Psych: Alert and oriented this morning. Confused about cream overnight Results & Data Vital Signs (Past 12 Hours) Vital Signs Temp Pulse Pulse Pulse Resp BP Pulse Ox 05/29/23 07:50 97.5 F L 105 H 18 117/71 91 05/29/23 07:29 105 H 05/29/23 03:15 97.5 F L 106 H 18 105/67 92 05/28/23 23:00 91 H 05/28/23 22:35 97.5 F L 80 18 107/60 93 O2 Del Method 05/29/23 07:50 Room Air 05/29/23 07:29 05/29/23 03:15 Room Air 05/28/23 23:00 05/28/23 22:35 Room Air PG Care Time/CCT Total # of Minutes Spent Total Time Spent with Patient: Total time spent is greater than 50% in coordination of care (as documented) at patient's floor/unit and/or counseling patient: Coding Level of Care Code 22948 SUB INP/OBS CARE 3/50MIN Diagnoses Acute HFrEF (heart failure with reduced ejection fraction) I50.21
[2023-05-29] MEDS: MAGNESIUM SULFATE / D5W 1 GM/100 ML BAG IV SCH (10:57)
[2023-05-29] MEDS: APIXABAN 5 MG TABLET PO ONE (11:55)
[2023-05-29] MEDS: POTASSIUM CHLORIDE CRTAB 20 MEQ TABCR PO SCH (11:55)
--- NOTE | 2023-05-29 13:27 | Electrocardiogram Report ---
Test Reason : Blood Pressure : / mmHG Vent. Rate : 103 BPM Atrial Rate : 066 BPM P-R Int : 000 ms QRS Dur : 136 ms QT Int : 318 ms P-R-T Axes : 000 -55 135 degrees QTc Int : 416 ms Sinus rhythm with frequent Premature atrial complexes Left axis deviation Left bundle branch block Abnormal ECG When compared with ECG of 27-MAY-2023 08:50, Left bundle branch block now present HR has increased by 19 bpm Confirmed by Lebron Flower ([id number]) on 05/29/2023 1:27:26 PM Referred By: REFERRED SELF Confirmed By:Lebron Flower
--- NOTE | 2023-05-30 07:09 | Pre Anesthesia Assessment ---
Date of Service May 30, 2023 Pre Sedation Assessment Vital Signs Temp Pulse Pulse Pulse Resp BP BP 05/30/23 06:45 100 H 20 106/79 05/30/23 05:00 88 05/29/23 21:56 97.5 F L 104 H 18 107/63 05/29/23 20:00 05/29/23 19:34 97.3 F L 82 18 100/61 05/29/23 16:08 98.2 F 102 H 16 125/87 05/29/23 15:21 79 05/29/23 11:53 89 20 115/72 05/29/23 08:00 05/29/23 07:50 97.5 F L 105 H 18 117/71 05/29/23 07:29 105 H Pulse Ox O2 Del Method 05/30/23 06:45 93 Room Air 05/30/23 05:00 05/29/23 21:56 93 Room Air 05/29/23 20:00 Room Air 05/29/23 19:34 93 Room Air 05/29/23 16:08 92 Room Air 05/29/23 15:21 05/29/23 11:53 93 Room Air 05/29/23 08:00 Room Air 05/29/23 07:50 91 Room Air 05/29/23 07:29 Cardiovascular + irregularly irregular Respiratory + respiratory effort normal Pre-Sedation Airway Assessment Smoking Status: Former smoker Hx Sleep Apnea: No Hx Difficult Intubation: No Short, Thick Neck: No Thyromental Distance: > or= 3.5 Finger Breadths Oral Cavity: + WNL Mallampati Class: II ASA: ASA4 NPO Status Date of Last Intake of Fluids: 05/29/23 Date of Last Intake of Solid Food: 05/29/23 Procedure Planning Contraindications for Sedation: none Current Medications Reviewed: Yes Notes The planned sedation has been discussed with the patient. Informed Consent was obtained. I have identified the patient, determined the appropriateness of sedation and have assessed the patient immediately prior to the procedure. All medicine(s) and interventions are by my order.
--- NOTE | 2023-05-30 07:10 | Cardiology Progress Note ---
Date of Service May 30, 2023 Assessment & Plan (1) Acute HFrEF (heart failure with reduced ejection fraction): Plan: EF 15%, global LV dysfunction Nonischemic cardiomyopathy. Suspect at least in part related to alcohol intake (3-4 beers a day). SPEP pending 2. CAD post 4V CABG 2001 -- Patent ATKINS-LAD with LT to RT collaterals, Patent SVG to OM. [place] vessels occluded 3. Bilateral lower extremity PADclaudication, bilateral HEMANT, severe right SFA stenosis 4. New onset atrial fibrillation with RVRasymptomatic, [id number] 5, reasonably rate controlled 5. Hypertensionstable off home meds 6. Hypothyroidismnew, started on Synthroid 7. Questionable UTIbeing covered with ceftriaxone, blood cultures NGTD 8. Cognitive impairment with intermittent confusionlives independently, awaiting PT OT eval 9. NSVTasymptomatic, <8 beats Continues to diurese well LVEDP still elevated Remains in atrial fibrillation, asymptomatic, rate controlled Cardiac catheterization today shows chronic stable CAD with 2 widely patent grafts and collaterals. Cardiomyopathy is nonischemic, suspect related to alcohol intake. Continued IV diuresis with Lasix 40 mg twice daily Continue current Toprol-XL Resume Eliquis tonight Plan to start low-dose Entresto tomorrow Continue current statin -Awaiting rehab recs Will follow Admission and Anticipated Discharge Date Admission Date: May 27, 2023 Subjective Feeling well this morning. No chest pain. No other new concerns. -1.3 L yesterday Telemetry reviewedremains in atrial fibrillation, heart rates 90s to 100s Underwent cardiac catheterization this morning. Chronic [place] vessel disease. Has 2 widely patent grafts. Review of Systems Review of Systems: All systems reviewed & are unremarkable except as noted in HPI & below Physical Exam Physical Exam: General: Comfortable HEENT: Sclerae anicteric Lungs: Decreased breath sounds at bases bilateral right greater than left (improved) Cardiac: Irregularly irregular, no murmurs Vascular: 2+ radial, nonpalpable DP/PT Abdomen: Soft, nontender Extremities: Cyanosis improved. 1+ edema to shins, mild erythema/stasis dermatitis. No weeping Neuro: Nonfocal Psych: Alert and oriented this morning. Results & Data Vital Signs (Past 12 Hours) Vital Signs Temp Pulse Pulse Resp BP BP Pulse Ox 05/30/23 06:45 100 H 20 106/79 93 05/30/23 05:00 88 05/29/23 21:56 97.5 F L 104 H 18 107/63 93 05/29/23 20:00 05/29/23 19:34 97.3 F L 82 18 100/61 93 O2 Del Method 05/30/23 06:45 Room Air 05/30/23 05:00 05/29/23 21:56 Room Air 05/29/23 20:00 Room Air 05/29/23 19:34 Room Air PG Care Time/CCT Total # of Minutes Spent Total Time Spent with Patient: Total time spent is greater than 50% in coordination of care (as documented) at patient's floor/unit and/or counseling patient: Coding Level of Care Code 18659 SUB INP/OBS CARE 350MIN Diagnoses Acute HFrEF (heart failure with reduced ejection fraction) I50.21
[2023-05-30] MEDS: MIDAZOLAM HCL 1 MG/ML 2ML VIAL ONE (07:54)
[2023-05-30] MEDS: HEPARIN (PORCINE) 1000 UNIT/ML 10 ML (CATH LAB USE ONLY) ONE (07:54)
[2023-05-30] MEDS: fentaNYL citrate PF 100 MCG/2 ML VIAL ONE (07:54)
[2023-05-30] MEDS: niCARdipine HCL INJ 2.5 MG/ML 10 ML AMP ONE (07:55)
--- NOTE | 2023-05-30 07:55 | Post Anesthesia Assessment ---
Date of Service May 30, 2023 Post Sedation Assessment Vital Signs Temp Pulse Pulse Pulse Resp BP BP 05/30/23 06:45 100 H 20 106/79 05/30/23 05:00 88 05/29/23 21:56 97.5 F L 104 H 18 107/63 05/29/23 20:00 05/29/23 19:34 97.3 F L 82 18 100/61 05/29/23 16:08 98.2 F 102 H 16 125/87 05/29/23 15:21 79 05/29/23 11:53 89 20 115/72 05/29/23 08:00 Pulse Ox O2 Del Method 05/30/23 06:45 93 Room Air 05/30/23 05:00 05/29/23 21:56 93 Room Air 05/29/23 20:00 Room Air 05/29/23 19:34 93 Room Air 05/29/23 16:08 92 Room Air 05/29/23 15:21 05/29/23 11:53 93 Room Air 05/29/23 08:00 Room Air Recovery Score Activity: Moves 4 extremities Respiration: Deep Breath/Cough Circulation: +/-20% PreAnes Value Consciousness: Fully Awake Oxygen Saturation: O2 needed for >90% Discharge Sedation Level of Care: Fast Track Phase II Post Sedation Plan On clinical assessment, the patient appears to have tolerated the sedation without complications. Patient is recovering as anticipated. Patient will continue to be monitored by nursing and may be discharged when sedation discharge criteria are met per below protocol. Upon Completions of procedure up to 15 minutes continue every 5 minute vital signs and the P.A.R. score; then discharge to a Phase I or Fast Track to Phase II per the following guidelines: * Discharge Patient to appropriate Phase II area if PAR is 8 or greater or return to pre- procedure baseline. The post - procedure orders will be as directed. * If PAR score is less than 8 or not return to pre-procedure baseline then patient will follow Phase I monitoring till PAR is reached for Phase II. The Phase I may be done in procedure room or may call to secure a Phase I area. * If naloxone or flumazenil are used for reversal, hold in Phase I for continued monitoring from when last reversal dose was given for a minimum of 60 minutes or longer pending the nurse and/or physician discretion of patient condition before discharge to Phase II. Please call the Sedation Physician to re-evaluate and complete post-note for discharge to Phase II area. Do NOT discharge from procedure sedation or Phase 1 until post- sedation evaluation note is complete by procedure /sedation MD Sedation Discharge Instructions to be given to the patient at discharge to home.
[2023-05-30] MEDS: NITROGLYCERIN/D5W 100MCG/ML 20ML SYR ONE (07:56)
--- NOTE | 2023-05-30 08:06 | Cardiac Catheterization ---
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 Clinical evaluation leading to the procedure CAD Presenation: Non STEMI Heart Failure: NYHA Class: CCS IV Diagnostic Physicians Name: Dwayne Martin MD Closure Device Recommendations: Medical Therapy and/or Counseling Cardiac Cath Procedure Full Procedure Date May 30, 2023 Pre-Procedure Diagnosis Pre-Procedure Diagnosis: CAD and Cardiomyopathy AUC Score AUC Score: 8 Post-Procedure Diagnosis Post-Procedure Diagnosis: Severe CAD and Elevated Intracardiac Pressures Procedure(s) Performed Procedure(s) Performed: Coronary Angiography, Left Heart Cath and Bypass Graft Angiography Radio Recorder Dwayne Martin MD White Work Cleaner(s) [place] Estimated Blood Loss Estimated Blood Loss: 10 Medication(s) Medication(s): Fentanyl, Heparin, Lidocaine 1%, Nicardipine, Nitroglycerin and Versed Summary of Findings Indication: Cardiomyopathy, history of coronary artery disease post four-vessel CABG in 2001 Access: 6 Fr left radial artery Catheters: JL 4, JR4, AL-1, YOGI Findings: LM -calcified, normal caliber, mild diffuse disease LAD -100% proximal total occlusion Circumflex -100% proximal total occlusion just after takeoff of small OM1. RCA -dominant, 80% ostial, diffuse severe proximal disease, subtotal mid RCA occlusion with trickle flow in latemid vessel before tapers in distal segment SVG to OM large caliber and widely patent and rectal fills into distal circumflex SVG to RCA occluded Third SVG occluded AKTINS to LAD widely patent. LAD after anastomosis widely patent. Provides collaterals to small RPDA LVEDP -27 Arterial Closure: TR band Summary: 1. Severe [place] multivessel coronary artery disease -100% ostial LAD chronic total occlusion 100% proximal circumflex chronic total occlusion Subtotal chronic mid RCA occlusion 2. Widely patent ATKINS to LAD with collaterals to PDA 3. Widely patent large SVG to OM 4. SVG to RCA and third SVG occluded 5. 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 Any exceptions are noted below. [facility] Card Cath Procedure Codes Cardiac Catheterization Procedure 1: Cardiovascular Cath Procedures: 60120 Coronaries & LHC (+/-LV) & Grafts/IM (arterial & venous) Moderate Sedation Procedure 1: Sedation/Anesthesia: 19108 Mod Sedation by the same physician;Init15 Min Child Age 5 & Up Procedure 2: Sedation/Anesthesia: 06816 Mod Sedation by the same physician; Ea [id number] Minutes PG Care Time/CCT Total # of Minutes Spent Total Time Spent with Patient: Total time spent is greater than 50% in coordination of care (as documented) at patient's floor/unit and/or counseling patient:
[2023-05-30 08:11] LABS: iSTAT Arterial Blood Gas HCO3 22 meg/L (19-24); iSTAT Arterial Blood Gas pCO2 37 mmHg (35-46); iSTAT Arterial Blood Gas pH 7.39 (7.35-7.45); iSTAT Arterial Blood Gas pO2 74 mmHg (80-95); iSTAT Carbon Dioxide 23 mmol/L (24-31); iSTAT Hematocrit 45 % (42-52); iSTAT Hemoglobin 15.3 g/dl (14.0-18.0); iSTAT Potassium 3.6 mmol/L (3.3-5.0); iSTAT Sodium 135 mmol/L (135-144)
[2023-05-30] MEDS: POTASSIUM CHLORIDE / WTR 10 MEQ/100 ML PLCT IV SCH (08:44)
[2023-05-30] MEDS: MAGNESIUM SULFATE / D5W 1 GM/100 ML BAG IV SCH (08:44)
[2023-05-30 09:36] LABS: Basophils # (auto) 0.02 K/uL (0.00-0.20); Basophils % (auto) 0.3 %; Eosinophils # (auto) 0.03 K/uL (0.00-0.50); Eosinophils % (auto) 0.4 %; Hematocrit (blood only) 46.5 % (42.0-52.0); Hemoglobin 15.2 g/dl (14.0-18.0); Immature Granulocytes # (auto) 0.02 K/uL (0.01-0.20); Immature Granulocytes % (auto) 0.3 %; Lymphocytes # (auto) 1.27 K/uL (1.20-3.40); Lymphocytes % (auto) 18.4 %; Mean Corpuscular Hemoglobin 30.3 pg (25.0-34.0); Mean Corpuscular Hgb Conc 32.7 g/dL (32.0-36.0); Mean Corpuscular Volume 92.6 fL (80.0-100.0); Mean Platelet Volume 10.8 fL (9.4-12.4); Monocytes # (auto) 0.48 K/uL (0.11-0.59); Neutrophils # (auto) 5.07 K/uL (1.40-6.50); Neutrophils % (auto) 73.6 %; Platelet Count 169 K/uL (130-400); RDW Coefficient of Variation 18.5 % (11.5-14.5); RDW Standard Deviation 60.6 fL (36.4-46.3); Red Blood Count 5.02 M/uL (4.70-6.10); White Blood Count 6.89 K/ul (4.8-10.8)
[2023-05-30 09:46] LABS: BUN Creatinine Ratio 32.6 (10-20); Calcium 8.7 mg/dl (8.6-10.3); Creatinine Clr Calc Pharmacy 64.2 ml/min; Est GFR (African American) 91.6 ml/min; Est GFR (Non-African American) 79.1 ml/min; Potassium 3.8 mmol/L (3.5-5.1)
[2023-05-30] MEDS: FUROSEMIDE INJ 20 MG/2 ML VIAL IV ONE (14:37)
--- NOTE | 2023-05-30 14:37 | Hospitalist Progress Note ---
Date of Service May 30, 2023 Assessment & Plan (1) Acute HFrEF (heart failure with reduced ejection fraction): Plan: Patient presented for a leg angiogram in 05/27; however, he was hypoxic, tachypneic, and cyanotic on arrival Found to be in acute decompensated congestive heart failure Ejection fraction 15% Cardiology is on consult Continue diuresis with IV Lasix 40 mg twice daily Patient is diuresing well Continue diuresis Monitor input and output, daily weight The patient got IV potassium, magnesium and IV antibiotics. He started getting short of breath, per the nurse. He may be getting fluid overloaded from the IV infusions. Will give him an extra 20 mg IV Lasix x 1 on top of the Lasix 40 mg IV twice daily (2) UTI (urinary tract infection): Plan: UA positive on arrival; unclear if this is a contaminant Clinically, patient denies dysuria, burning with urination, or urinary retention Urine cultures negative Will discontinue IV Rocephin (3) Cardiomyopathy: Plan: Cardiomyopathy, etiology is unknown next ejection fraction 15% Cardiac catheterization completed for ischemic workup. Revealed severe multivessel coronary artery disease including 100% ostial LAD occlusion and 100% proximal circumflex occlusion. Likely ischemic cardiomyopathy. Continue diuresis for now Awaiting further cardiology recommendations (4) Elevated TSH: Plan: TSH elevated at 26.763 on arrival Free T4 WNL at 0.77 Last TSH on 01/07/23 was 3.455 No prior diagnosis of hypothyroidism Patient denies hx of thyroid issues Reached out to endocrinology, who recommended levothyroxine 25 mcg every other day (5) Elevated troponin: Plan: Troponin elevated at 50.4-->92.0 on arrival Clinically, patient denies chest pain Continuous telemetry monitoring Possible non-STEMI Cardiac catheterization showed severe multivessel coronary artery disease Patient has cardiomyopathy with EF of 15% Continue Eliquis, Lipitor, metoprolol (6) PAD (peripheral artery disease): Plan: Continue aspirin, statin (7) Hypercholesterolemia: Plan: Continue atorvastatin (8) Hypertension: Plan: Hold lisinopril in the setting of borderline YANELI Continue metoprolol (9) Gout, joint: Plan: Continue allopurinol (10) Atrial fibrillation: Plan: New onset atrial fibrillation with RVR Asymptomatic [id number] score of 5 On Eliquis On metoprolol Rate controlled Keep K greater than 4, mag greater than 2. Replace to achieve goal Plan Full code VTE PPx: Faith Admission and Anticipated Discharge Date Admission Date: May 27, 2023 Subjective Patient just got back from the cardiac catheterization. He denies any chest pain. He denied any shortness of breath to me. However, little bit ago the nurse informed that he is feeling short of breath and getting anxious. Of note, the patient received IV magnesium, potassium replacements as well as IV antibiotics. Review of Systems Review of Systems: All systems reviewed & are unremarkable except as noted in Subjective Physical Exam 2 Physical Exam: General: Awake, conversant Heart: S1, S2/regular rate and rhythm, no murmur rubs or gallops Lungs: Diminished breath sounds bilaterally. Normal effort Abdomen: Soft/nontender/nondistended. No hepatosplenomegaly Extremities: No clubbing/cyanosis. 2+ pitting bilateral edema Behavior: Appropriate, cooperative Results & Data Results & Data Vital Signs (Past 12 Hours) Vital Signs Temp Pulse Pulse Pulse Resp BP BP 05/30/23 11:11 36.2 C L 92 H 16 108/74 05/30/23 10:13 36.2 C L 92 H 16 122/83 05/30/23 09:45 35.8 C L 88 22 125/83 05/30/23 09:30 05/30/23 09:15 35.6 C L 96 H 16 134/89 05/30/23 09:00 97 H 05/30/23 09:00 36.4 C L 90 22 112/80 05/30/23 08:45 36.4 C L 91 H 22 123/74 05/30/23 08:30 36.3 C L 96 H 18 132/83 05/30/23 08:20 99 H 20 118/83 05/30/23 08:05 103 H 18 116/80 05/30/23 06:45 100 H 20 106/79 05/30/23 05:00 88 Pulse Ox O2 Del Method O2 Flow Rate 05/30/23 11:11 94 Nasal Cannula 2 05/30/23 10:13 93 Room Air 05/30/23 09:45 94 Room Air 05/30/23 09:30 Room Air 05/30/23 09:15 95 Room Air 05/30/23 09:00 05/30/23 09:00 93 Room Air 05/30/23 08:45 92 Room Air 05/30/23 08:30 93 Room Air 05/30/23 08:20 93 Room Air 05/30/23 08:05 93 Room Air 05/30/23 06:45 93 Room Air 05/30/23 05:00 Laboratory Results Abnormal lab results 05/30/23 05/30/23 Range/Units 07:28 09:16 RDW Std Deviation 60.6 H (36.4-46.3) fL RDW Coeff of Rolan 18.5 H (11.5-14.5) % POC pO2 74 L (80-95) mmHg POC Total CO2 23 L (24-31) mmol/L Sodium 134 L (136-145) mmol/L BUN 28 H (6-23) mg/dl BUN/Creatinine Ratio 32.6 H (10-20) Glucose 123 H (70-99(Fasting)) mg/dl PG Care Time/CCT Total # of Minutes Spent Total Time Spent with Patient: Total time spent is greater than 50% in coordination of care (as documented) at patient's floor/unit and/or counseling patient: Coding Level of Care Code 79438 SUB INP/OBS CARE 2/35MIN Diagnoses Acute HFrEF (heart failure with reduced ejection fraction) I50.21 UTI (urinary tract infection) N39.0 Cardiomyopathy I42.9 Elevated TSH R79.89 Elevated troponin R79.89 PAD (peripheral artery disease) I73.9 Hypercholesterolemia E78.00 Hypertension I10 Gout, joint M10.9 Atrial fibrillation I48.91
[2023-05-30] MEDS: APIXABAN 5 MG TABLET PO SCH (22:38)
[2023-05-31 08:44] LABS: Hematocrit (blood only) 50.3 % (42.0-52.0); Hemoglobin 16.4 g/dl (14.0-18.0); Mean Corpuscular Hemoglobin 30.1 pg (25.0-34.0); Mean Corpuscular Hgb Conc 32.6 g/dL (32.0-36.0); Mean Corpuscular Volume 92.3 fL (80.0-100.0); Mean Platelet Volume 10.9 fL (9.4-12.4); Platelet Count 216 K/uL (130-400); RDW Coefficient of Variation 18.6 % (11.5-14.5); RDW Standard Deviation 60.5 fL (36.4-46.3); Red Blood Count 5.45 M/uL (4.70-6.10); White Blood Count 7.09 K/ul (4.8-10.8)
[2023-05-31 09:02] LABS: Anion Gap 10 (3-11); BUN Creatinine Ratio 28.6 (10-20); Blood Urea Nitrogen 28 mg/dl (6-23); Calcium 9.2 mg/dl (8.6-10.3); Carbon Dioxide 26 mmol/L (21-32); Chloride 95 mmol/L (98-107); Creatinine Clr Calc Pharmacy 56.6 ml/min; Est GFR (African American) 81.2 ml/min; Glucose 174 mg/dl (70-99(Fasting)); Sodium 131 mmol/L (136-145)
[2023-05-31] MEDS: VALSARTAN/SACUBITRIL 26/24MG TAB PO SCH (10:12)
--- NOTE | 2023-05-31 14:44 | Hospitalist Progress Note ---
Date of Service May 31, 2023 Assessment & Plan (1) Acute HFrEF (heart failure with reduced ejection fraction): Plan: Patient presented for a leg angiogram in 05/27; however, he was hypoxic, tachypneic, and cyanotic on arrival Found to be in acute decompensated congestive heart failure Ejection fraction 15% Cardiology is on consult Continue diuresis with IV Lasix 40 mg twice daily Patient is diuresing well Monitor input and output, daily weight He got a little volume overloaded from all the IV potassium, magnesium and antibiotics yesterday. Needed an extra dose of Lasix. Does not seem short of breath today (2) UTI (urinary tract infection): Plan: UA positive on arrival; unclear if this is a contaminant Clinically, patient denies dysuria, burning with urination, or urinary retention Urine cultures negative Discontinued IV Rocephin (3) Cardiomyopathy: Plan: Cardiomyopathy, etiology is unknown next ejection fraction 15% Cardiac catheterization completed for ischemic workup. Revealed severe multivessel coronary artery disease including 100% ostial LAD occlusion and 100% proximal circumflex occlusion. Per cardiology, these are chronic issues and this most likely is now on ischemic cardiomyopathy due to chronic alcohol intake. Continue diuresis for now Start aspirin Continue metoprolol Was started on Entresto today. (4) Elevated TSH: Plan: TSH elevated at 26.763 on arrival Free T4 WNL at 0.77 Last TSH on 01/07/23 was 3.455 No prior diagnosis of hypothyroidism Patient denies hx of thyroid issues Reached out to endocrinology, who recommended levothyroxine 25 mcg every other day (5) Elevated troponin: Plan: Troponin elevated at 50.4-->92.0 on arrival Clinically, patient denies chest pain Continuous telemetry monitoring Possible non-STEMI Cardiac catheterization showed severe multivessel coronary artery disease Patient has cardiomyopathy with EF of 15% Continue Eliquis, Lipitor, metoprolol Start aspirin (6) PAD (peripheral artery disease): Plan: Continue aspirin, statin (7) Hypercholesterolemia: Plan: Continue atorvastatin (8) Hypertension: Plan: Hold lisinopril in the setting of borderline YANELI Continue metoprolol (9) Gout, joint: Plan: Continue allopurinol (10) Atrial fibrillation: Plan: New onset atrial fibrillation with RVR Asymptomatic [id number] score of 5 On Eliquis On metoprolol Rate controlled Keep K greater than 4, mag greater than 2. Replaced to achieve goal Plan Full code VTE PPx: Faith Admission and Anticipated Discharge Date Admission Date: May 27, 2023 Subjective Patient does not have any chest pain or shortness of breath. Accompanied by his daughter at the bedside. Review of Systems Review of Systems: All systems reviewed & are unremarkable except as noted in Subjective Physical Exam Physical Exam: General: Awake, conversant Heart: S1, S2/regular rate and rhythm, no murmur rubs or gallops Lungs: Diminished breath sounds bilaterally. Normal effort Abdomen: Soft/nontender/nondistended. No hepatosplenomegaly Extremities: No clubbing/cyanosis. 2+ pitting bilateral edema Behavior: Appropriate, cooperative Results & Data Results & Data Vital Signs (Past 12 Hours) Vital Signs Temp Pulse Pulse Resp BP Pulse Ox O2 Del Method 05/31/23 11:51 36.3 C L 91 H 16 116/78 97 Room Air 05/31/23 11:27 Room Air 05/31/23 10:03 100 H 105/74 05/31/23 07:12 112 H 20 133/82 99 Room Air 05/31/23 03:05 36.7 C 94 H 18 116/73 98 Nasal Cannula O2 Flow Rate 05/31/23 11:51 05/31/23 11:27 05/31/23 10:03 05/31/23 07:12 05/31/23 03:05 3 Laboratory Results Abnormal lab results 05/31/23 Range/Units 08:24 RDW Std Deviation 60.5 H (36.4-46.3) fL RDW Coeff of Rolan 18.6 H (11.5-14.5) % Sodium 131 L (136-145) mmol/L Chloride 95 L (98-107) mmol/L BUN 28 H (6-23) mg/dl BUN/Creatinine Ratio 28.6 H (10-20) Glucose 174 H (70-99(Fasting)) mg/dl PG Care Time/CCT Total # of Minutes Spent Total Time Spent with Patient: Total time spent is greater than 50% in coordination of care (as documented) at patient's floor/unit and/or counseling patient: Coding Level of Care Code 91861 SUB INP/OBS CARE 2/35MIN Diagnoses Acute HFrEF (heart failure with reduced ejection fraction) I50.21 UTI (urinary tract infection) N39.0 Cardiomyopathy I42.9 Elevated TSH R79.89 Elevated troponin R79.89 PAD (peripheral artery disease) I73.9 Hypercholesterolemia E78.00 Hypertension I10 Gout, joint M10.9 Atrial fibrillation I48.91
--- NOTE | 2023-05-31 14:50 | Cardiology Progress Note ---
Date of Service May 31, 2023 Assessment & Plan (1) Acute HFrEF (heart failure with reduced ejection fraction): Plan: EF 15%, global LV dysfunction Nonischemic cardiomyopathy. Suspect at least in part related to alcohol intake (3-4 beers a day). SPEP pending 2. CAD post 4V CABG 2001 -- Patent ATKINS-LAD with LT to RT collaterals, Patent SVG to OM. [place] vessels occluded 3. Bilateral lower extremity PADclaudication, bilateral HEMANT, severe right SFA stenosis 4. New onset atrial fibrillation with RVRasymptomatic, [id number] 5, reasonably rate controlled 5. Hypertensionstable off home meds 6. Hypothyroidismnew, started on Synthroid 7. Questionable UTInow off ceftriaxone, blood cultures NGTD 8. Cognitive impairment with intermittent confusionlives independently, acute rehab recommended 9. NSVTasymptomatic, <8 beats 10. Paroxysmal SVT 11. Hyponatremia Reduced urine output yesterday, +600. Weight slightly up and congestion worse on exam today. Episodes of paroxysmal SVT overnight. Suspect may related to agitation/?w ithdrawal. Improved with metoprolol. Renal function stable. New mild hyponatremia. -- No need for additional revascularization. Patent grafts with collaterals. Cardiomyopathy is nonischemic. Additional IV lasix today - Give 80mg this afternoon. Increase toprol XL to 50mg BID. -- Continue Eliquis. Will stop Aspirin. Started on low dose entresto today. Addition of MRA pending course. Continue current statin Cardiology will follow Admission and Anticipated Discharge Date Admission Date: May 27, 2023 Subjective Agitated overnight, patient confused and thought he was in retirement. Now with sitter in place. On telemetryhad periods of SVT up to 130s this morning heart rate better controlled after metoprolol appears to have converted back to sinus rhythm with frequent PACs Currently denies shortness of breath, chest pain. Was up walking in [place] with physical therapy earlier today I/O + 600 Review of Systems Review of Systems: Unobtainable due to cognitive status Physical Exam Physical Exam: General: Comfortable HEENT: Sclerae anicteric Lungs: Decreased breath sounds at bases bilaterally Cardiac: Regular premature beats, no murmurs, JVD to the jaw Vascular: 2+ radial, nonpalpable DP/PT Abdomen: Soft, nontender Extremities: Fingers mildly cyanotic. 2+ + edema to shins, mild erythema/stasis dermatitis. No weeping Neuro: Nonfocal Psych: Alert and oriented this morning. Results & Data Vital Signs (Past 12 Hours) Vital Signs Temp Pulse Pulse Resp BP Pulse Ox O2 Del Method 05/31/23 11:51 97.3 F L 91 H 16 116/78 97 Room Air 05/31/23 11:27 Room Air 05/31/23 10:03 100 H 105/74 05/31/23 07:12 112 H 20 133/82 99 Room Air 05/31/23 03:05 98.1 F 94 H 18 116/73 98 Nasal Cannula O2 Flow Rate 05/31/23 11:51 05/31/23 11:27 05/31/23 10:03 05/31/23 07:12 05/31/23 03:05 3 PG Care Time/CCT Total # of Minutes Spent Total Time Spent with Patient: Total time spent is greater than 50% in coordination of care (as documented) at patient's floor/unit and/or counseling patient: Coding Level of Care Code 87873 SUB INP/OBS CARE 3/50MIN Diagnoses Acute HFrEF (heart failure with reduced ejection fraction) I50.21
[2023-05-31] MEDS: FUROSEMIDE 40 MG/4 ML VIAL IV ONE (15:32)
[2023-05-31] MEDS: METOPROLOL SUCC 50MG EXT REL TAB PO SCH (20:38)
[2023-06-01 06:55] LABS: Calcium 8.8 mg/dl (8.6-10.3); Potassium 4.7 mmol/L (3.5-5.1)
[2023-06-01 06:56] LABS: Hematocrit (blood only) 47.8 % (42.0-52.0); Hemoglobin 16.2 g/dl (14.0-18.0); Mean Corpuscular Hemoglobin 30.9 pg (25.0-34.0); Mean Corpuscular Hgb Conc 33.9 g/dL (32.0-36.0); Mean Corpuscular Volume 91.2 fL (80.0-100.0); Mean Platelet Volume 11.3 fL (9.4-12.4); Platelet Count 182 K/uL (130-400); RDW Coefficient of Variation 18.7 % (11.5-14.5); RDW Standard Deviation 59.8 fL (36.4-46.3); Red Blood Count 5.24 M/uL (4.70-6.10); White Blood Count 7.44 K/ul (4.8-10.8)
[2023-06-01 07:01] LABS: BUN Creatinine Ratio 32.9 (10-20); Creatinine Clr Calc Pharmacy 64.9 ml/min; Est GFR (African American) 92.1 ml/min; Est GFR (Non-African American) 79.5 ml/min
[2023-06-01] MEDS: FUROSEMIDE 40 MG/4 ML VIAL IV SCH (08:17)
[2023-06-01] MEDS: ASPIRIN 81 MG ECTAB PO SCH (09:48)
--- NOTE | 2023-06-01 13:19 | Hospitalist Progress Note ---
Date of Service June 01, 2023 Assessment & Plan (1) Acute HFrEF (heart failure with reduced ejection fraction): Plan: Patient presented for a leg angiogram in 05/27; however, he was hypoxic, tachypneic, and cyanotic on arrival Found to be in acute decompensated congestive heart failure Ejection fraction 15% Cardiology is on consult Continue diuresis Cardiology ordered Lasix 80 mg IV twice daily today 06/01 Monitor input and output, daily weight (2) UTI (urinary tract infection): Plan: UA positive on arrival; unclear if this is a contaminant Clinically, patient denies dysuria, burning with urination, or urinary retention Urine cultures negative Discontinued IV Rocephin (3) Cardiomyopathy: Plan: Cardiomyopathy, etiology is unknown Ejection fraction 15% Cardiac catheterization completed for ischemic workup. [place] coronaries occluded which is chronic. Patent ATKINS-LAD. This is non ischemic cardiomyopathy Continue diuresis for now. Cardiology ordered 80 mg IV Lasix twice daily Continue metoprolol, Entresto Continue current statin (4) Elevated TSH: Plan: TSH elevated at 26.763 on arrival Free T4 WNL at 0.77 Last TSH on 01/07/23 was 3.455 No prior diagnosis of hypothyroidism Patient denies hx of thyroid issues Reached out to endocrinology, who recommended levothyroxine 25 mcg every other day (5) Elevated troponin: Plan: Troponin elevated at 50.4-->92.0 on arrival Clinically, patient denies chest pain Continuous telemetry monitoring Possible non-STEMI Cardiac catheterization showed severe multivessel coronary artery disease to the main 2 of blood vessels which is chronic. Patent grafts Patient has cardiomyopathy with EF of 15% Continue Eliquis, Lipitor, metoprolol Cardiology discontinued aspirin (6) PAD (peripheral artery disease): Plan: Continue statin (7) Hypercholesterolemia: Plan: Continue atorvastatin (8) Hypertension: Plan: Hold lisinopril in the setting of borderline YANELI Continue metoprolol (9) Gout, joint: Plan: Continue allopurinol (10) Atrial fibrillation: Plan: New onset atrial fibrillation with RVR Asymptomatic [id number] score of 5 On Eliquis On metoprolol Rate controlled Keep K greater than 4, mag greater than 2. Replaced to achieve goal Plan Full code VTE PPx: Eliquis Admission and Anticipated Discharge Date Admission Date: May 27, 2023 Subjective Patient says that he does not feel short of breath. The daughter pointed out that earlier when he was laying flat in bed, he started coughing. He still has significant leg swelling. Review of Systems Review of Systems: All systems reviewed & are unremarkable except as noted in Subjective Physical Exam Physical Exam: General: Awake, conversant Heart: S1, S2/regular rate and rhythm, no murmur rubs or gallops Lungs: Diminished breath sounds bilaterally. Normal effort Abdomen: Soft/nontender/nondistended. No hepatosplenomegaly Extremities: No clubbing/cyanosis. 2+ pitting bilateral edema Behavior: Appropriate, cooperative Results & Data Results & Data Vital Signs (Past 12 Hours) Vital Signs Temp Pulse Pulse Pulse Resp BP BP 06/01/23 11:49 36.4 C L 87 18 100/58 L 06/01/23 07:45 85 06/01/23 07:41 36.7 C 85 19 103/71 06/01/23 04:11 36.4 C L 86 17 124/72 Pulse Ox O2 Del Method 06/01/23 11:49 92 Room Air 06/01/23 07:45 06/01/23 07:41 92 Room Air 06/01/23 04:11 94 Room Air Laboratory Results Abnormal lab results 06/01/23 Range/Units 06:06 RDW Std Deviation 59.8 H (36.4-46.3) fL RDW Coeff of Rolan 18.7 H (11.5-14.5) % Sodium 132 L (136-145) mmol/L Anion Gap 12 H (3-11) BUN 28 H (6-23) mg/dl BUN/Creatinine Ratio 32.9 H (10-20) Glucose 106 H (70-99(Fasting)) mg/dl PG Care Time/CCT Total # of Minutes Spent Total Time Spent with Patient: Total time spent is greater than 50% in coordination of care (as documented) at patient's floor/unit and/or counseling patient: Coding Level of Care Code 28400 SUB INP/OBS CARE 2/35MIN Diagnoses Acute HFrEF (heart failure with reduced ejection fraction) I50.21 UTI (urinary tract infection) N39.0 Cardiomyopathy I42.9 Elevated TSH R79.89 Elevated troponin R79.89 PAD (peripheral artery disease) I73.9 Hypercholesterolemia E78.00 Hypertension I10 Gout, joint M10.9 Atrial fibrillation I48.91
[2023-06-01 15:03] LABS: Albumin 3.2 g/dL (3.8-4.8); Alpha 1 Globulin 0.4 g/dL (0.2-0.3); Alpha 2 Globulin 0.7 g/dL (0.5-0.9); Beta-1-Globulin 0.4 g/dL (0.4-0.6); Beta-2-Globulin 0.6 g/dL (0.2-0.5); Gamma Globulin 0.7 g/dL (0.8-1.7); Monoclonal Protein Band 1 0.5 g/dL (NONE DETECTED); Monoclonal Protein Band 2 DNR g/dL (NONE DETECTED); Monoclonal Protein Band 3 DNR g/dL (NONE DETECTED)
[2023-06-01 22:16] LABS: BUN Creatinine Ratio 29.6 (10-20); Calcium 8.7 mg/dl (8.6-10.3); Creatinine Clr Calc Pharmacy 56.3 ml/min; Est GFR (African American) 81.2 ml/min; Magnesium 1.8 mg/dl (1.7-2.4); Potassium 4.3 mmol/L (3.5-5.1)
[2023-06-02] MEDS: MAGNESIUM SULFATE / D5W 1 GM/100 ML BAG IV SCH (02:12)
[2023-06-02 07:37] LABS: Hematocrit (blood only) 44.4 % (42.0-52.0); Hemoglobin 14.9 g/dl (14.0-18.0); Mean Corpuscular Hemoglobin 30.5 pg (25.0-34.0); Mean Corpuscular Hgb Conc 33.6 g/dL (32.0-36.0); Mean Corpuscular Volume 90.8 fL (80.0-100.0); Mean Platelet Volume 11.5 fL (9.4-12.4); Platelet Count 173 K/uL (130-400); RDW Coefficient of Variation 18.1 % (11.5-14.5); RDW Standard Deviation 59.5 fL (36.4-46.3); Red Blood Count 4.89 M/uL (4.70-6.10); White Blood Count 5.58 K/ul (4.8-10.8)
[2023-06-02 07:56] LABS: BUN Creatinine Ratio 28.6 (10-20); Calcium 8.5 mg/dl (8.6-10.3); Creatinine Clr Calc Pharmacy 60.4 ml/min; Est GFR (African American) 88.8 ml/min; Est GFR (Non-African American) 76.6 ml/min; Potassium 3.9 mmol/L (3.5-5.1)
--- NOTE | 2023-06-02 15:14 | Hospitalist Progress Note ---
Date of Service June 02, 2023 Assessment & Plan (1) Acute HFrEF (heart failure with reduced ejection fraction): Plan: Patient presented for a leg angiogram in 05/27; however, he was hypoxic, tachypneic, and cyanotic on arrival Found to be in acute decompensated congestive heart failure Ejection fraction 15% Cardiology is on consult Continue diuresis Cardiology ordered Lasix 80 mg IV twice daily today 06/01 06/02 remains on IV Lasix Monitor input and output, daily weight (2) UTI (urinary tract infection): Plan: UA positive on arrival; unclear if this is a contaminant Clinically, patient denies dysuria, burning with urination, or urinary retention Urine cultures negative Discontinued IV Rocephin (3) Cardiomyopathy: Plan: Cardiomyopathy, etiology is unknown Ejection fraction 15% Cardiac catheterization completed for ischemic workup. [place] coronaries occluded which is chronic. Patent ATKINS-LAD. This is non ischemic cardiomyopathy Continue diuresis for now. Cardiology ordered 80 mg IV Lasix twice daily Continue metoprolol, Entresto Continue current statin (4) Elevated TSH: Plan: TSH elevated at 26.763 on arrival Free T4 WNL at 0.77 Last TSH on 01/07/23 was 3.455 No prior diagnosis of hypothyroidism Patient denies hx of thyroid issues Reached out to endocrinology, who recommended levothyroxine 25 mcg every other day (5) Elevated troponin: Plan: Troponin elevated at 50.4-->92.0 on arrival Clinically, patient denies chest pain Continuous telemetry monitoring Possible non-STEMI Cardiac catheterization showed severe multivessel coronary artery disease to the main 2 of blood vessels which is chronic. Patent grafts Patient has cardiomyopathy with EF of 15% Continue Eliquis, Lipitor, metoprolol Cardiology discontinued aspirin (6) PAD (peripheral artery disease): Plan: Continue statin (7) Hypercholesterolemia: Plan: Continue atorvastatin (8) Hypertension: Plan: Hold lisinopril in the setting of borderline YANELI Continue metoprolol (9) Gout, joint: Plan: Continue allopurinol (10) Atrial fibrillation: Plan: New onset atrial fibrillation with RVR Asymptomatic [id number] score of 5 On Eliquis On metoprolol Rate controlled Keep K greater than 4, mag greater than 2. Replaced to achieve goal Plan Full code VTE PPx: Eliquis Admission and Anticipated Discharge Date Admission Date: May 27, 2023 Subjective Patient reports feeling better, he still has significant leg swelling. Review of Systems Review of Systems: Reports her shortness of breath, swelling, denies fever or chills Physical Exam Physical Exam: head is atraumatic , normocephalic Eyes sclerae anicteric Neck supple no JVD no carotid bruit Lungs diminished breath sound bilaterally Heart sounds regular no murmurs gallops rubs appreciated Abdomen soft nontender nondistended bowel sounds present Extremities 3+ pitting edema present Results & Data Results & Data Vital Signs (Past 12 Hours) Vital Signs Temp Pulse Pulse Resp BP Pulse Ox O2 Del Method 06/02/23 11:34 36.3 C L 80 18 108/62 96 Room Air 06/02/23 03:12 36.8 C 78 19 100/61 95 Room Air Laboratory Results Abnormal lab results 06/01/23 06/02/23 Range/Units 21:48 06:52 RDW Std Deviation 59.5 H (36.4-46.3) fL RDW Coeff of Rolan 18.1 H (11.5-14.5) % Sodium 132 L 133 L (136-145) mmol/L Chloride 97 L (98-107) mmol/L BUN 29 H 26 H (6-23) mg/dl BUN/Creatinine Ratio 29.6 H 28.6 H (10-20) Glucose 103 H 106 H (70-99(Fasting)) mg/dl Calcium 8.5 L (8.6-10.3) mg/dl PG Care Time/CCT Total # of Minutes Spent Total Time Spent with Patient: Total time spent is greater than 50% in coordination of care (as documented) at patient's floor/unit and/or counseling patient: Coding Level of Care Code 10174 SUB INP/OBS CARE 2/35MIN Diagnoses Acute HFrEF (heart failure with reduced ejection fraction) I50.21 UTI (urinary tract infection) N39.0 Cardiomyopathy I42.9 Elevated TSH R79.89 Elevated troponin R79.89 PAD (peripheral artery disease) I73.9 Hypercholesterolemia E78.00 Hypertension I10 Gout, joint M10.9 Atrial fibrillation I48.91
[2023-06-02] MEDS: POTASSIUM CHLORIDE CRTAB 20 MEQ TABCR PO STA (16:38)
[2023-06-03 07:40] LABS: Hematocrit (blood only) 46.1 % (42.0-52.0); Hemoglobin 15.8 g/dl (14.0-18.0); Mean Corpuscular Hemoglobin 30.8 pg (25.0-34.0); Mean Corpuscular Hgb Conc 34.3 g/dL (32.0-36.0); Mean Corpuscular Volume 89.9 fL (80.0-100.0); Mean Platelet Volume 11.2 fL (9.4-12.4); Platelet Count 205 K/uL (130-400); RDW Coefficient of Variation 17.2 % (11.5-14.5); RDW Standard Deviation 56.1 fL (36.4-46.3); Red Blood Count 5.13 M/uL (4.70-6.10); White Blood Count 7.36 K/ul (4.8-10.8)
[2023-06-03 08:10] LABS: BUN Creatinine Ratio 29.7 (10-20); Creatinine Clr Calc Pharmacy 60.6 ml/min; Est GFR (African American) 88.8 ml/min; Est GFR (Non-African American) 76.6 ml/min; Magnesium 1.9 mg/dl (1.7-2.4); Potassium 3.9 mmol/L (3.5-5.1)
[2023-06-03] MEDS: POTASSIUM CHLORIDE CRTAB 20 MEQ TABCR PO STA (11:07)
[2023-06-03] MEDS: THIAMINE HCL 100 MG TAB PO SCH (11:08)
[2023-06-03] MEDS: FOLIC ACID 1 MG TAB PO SCH (11:08)
[2023-06-03] MEDS: MAGNESIUM SULFATE / D5W 1 GM/100 ML BAG IV ONE (13:59)
[2023-06-03] MEDS: chlordiazePOXIDE HCl 25 MG CAP PO SCH (14:00)
--- NOTE | 2023-06-03 15:11 | Hospitalist Progress Note ---
Date of Service June 03, 2023 Assessment & Plan (1) Acute HFrEF (heart failure with reduced ejection fraction): Plan: Patient presented for a leg angiogram in 05/27; however, he was hypoxic, tachypneic, and cyanotic on arrival Found to be in acute decompensated congestive heart failure Ejection fraction 15% Cardiology is on consult Continue diuresis Cardiology ordered Lasix 80 mg IV twice daily today 06/01 06/02 remains on IV Lasix 06/03 on IV Lasix , NS VT Monitor input and output, daily weight (2) UTI (urinary tract infection): Plan: UA positive on arrival; unclear if this is a contaminant Clinically, patient denies dysuria, burning with urination, or urinary retention Urine cultures negative Discontinued IV Rocephin (3) Cardiomyopathy: Plan: Cardiomyopathy, etiology is unknown Ejection fraction 15% Cardiac catheterization completed for ischemic workup. [place] coronaries occluded which is chronic. Patent ATKINS-LAD. This is non ischemic cardiomyopathy Continue diuresis for now. Cardiology ordered 80 mg IV Lasix twice daily Continue metoprolol, Entresto Continue current statin (4) Elevated TSH: Plan: TSH elevated at 26.763 on arrival Free T4 WNL at 0.77 Last TSH on 01/07/23 was 3.455 No prior diagnosis of hypothyroidism Patient denies hx of thyroid issues Reached out to endocrinology, who recommended levothyroxine 25 mcg every other day (5) Elevated troponin: Plan: Troponin elevated at 50.4-->92.0 on arrival Clinically, patient denies chest pain Continuous telemetry monitoring Possible non-STEMI Cardiac catheterization showed severe multivessel coronary artery disease to the main 2 of blood vessels which is chronic. Patent grafts Patient has cardiomyopathy with EF of 15% Continue Eliquis, Lipitor, metoprolol Cardiology discontinued aspirin (6) PAD (peripheral artery disease): Plan: Continue statin (7) Hypercholesterolemia: Plan: Continue atorvastatin (8) Hypertension: Plan: Hold lisinopril in the setting of borderline YANELI Continue metoprolol (9) Gout, joint: Plan: Continue allopurinol (10) Atrial fibrillation: Plan: New onset atrial fibrillation with RVR Asymptomatic [id number] score of 5 On Eliquis On metoprolol Rate controlled Keep K greater than 4, mag greater than 2. Replaced to achieve goal (11) Alcohol abuse: Plan: daily alcohol abuse confused last night restless start Thiamine folic acid Librium Plan Full code VTE PPx: Faith Admission and Anticipated Discharge Date Admission Date: May 27, 2023 Subjective Patient reports feeling better, he still has significant leg swelling, as per daughter he was very confused last night Review of Systems Review of Systems: Reports her shortness of breath, swelling, denies fever or chills Physical Exam Physical Exam: head is atraumatic , normocephalic Eyes sclerae anicteric Neck supple no JVD no carotid bruit Lungs diminished breath sound bilaterally Heart sounds regular no murmurs gallops rubs appreciated Abdomen soft nontender nondistended bowel sounds present Extremities 3+ pitting edema present Results & Data Results & Data Vital Signs (Past 12 Hours) Vital Signs Temp Pulse Pulse Resp BP Pulse Ox O2 Del Method 06/03/23 11:32 36.5 C 81 19 98/53 L 96 Room Air 06/03/23 10:39 94 H 06/03/23 07:53 36.4 C L 100 H 19 132/75 92 Room Air PG Care Time/CCT Total # of Minutes Spent Total Time Spent with Patient: Total time spent is greater than 50% in coordination of care (as documented) at patient's floor/unit and/or counseling patient: Coding Level of Care Code 25006 SUB INP/OBS CARE 2/35MIN Diagnoses Acute HFrEF (heart failure with reduced ejection fraction) I50.21 UTI (urinary tract infection) N39.0 Cardiomyopathy I42.9 Elevated TSH R79.89 Elevated troponin R79.89 PAD (peripheral artery disease) I73.9 Hypercholesterolemia E78.00 Hypertension I10 Gout, joint M10.9 Atrial fibrillation I48.91 Alcohol abuse F10.10
[2023-06-03] MEDS: POLYETHYLENE (MIRALAX) 17 GM PACK PO SCH (18:14)
--- NOTE | 2023-06-03 18:22 | XRay Report ---
SINGLE VIEW CHEST CLINICAL HISTORY: Hypoxia FINDINGS: 2 AP, portable, upright chest radiographs are compared to study dated 05/27/2023. The patient is status post midline sternotomy. The heart is enlarged and noting atherosclerotic calcification of the thoracic aorta. There is pulmonary vascular congestion with interstitial edema. There are layeri ng pleural effusions with dependent consolidation. These have increased in size from 05/27/2023. No pne umothorax is seen. The skeletal structures are osteopenic. The bony thorax is grossly intact. IMPRESSION: 1. Cardiomegaly with evidence of congestive failure and pulmonary edema. 2. Layering pleural effusions with dependent consolidation. ACT 112: Negative or not required by law. Electronically signed by: Brian Taylor M.D. 06/03/2023 6:20 PM
[2023-06-03] MEDS: QUEtiapine FUMARATE 25 MG TABLET PO SCH (23:00)
[2023-06-04 07:54] LABS: Hematocrit (blood only) 48.9 % (42.0-52.0); Hemoglobin 16.2 g/dl (14.0-18.0); Mean Corpuscular Hemoglobin 30.1 pg (25.0-34.0); Mean Corpuscular Hgb Conc 33.1 g/dL (32.0-36.0); Mean Corpuscular Volume 90.9 fL (80.0-100.0); Mean Platelet Volume 11.2 fL (9.4-12.4); Platelet Count 192 K/uL (130-400); RDW Coefficient of Variation 18.9 % (11.5-14.5); RDW Standard Deviation 59.1 fL (36.4-46.3); Red Blood Count 5.38 M/uL (4.70-6.10); White Blood Count 8.26 K/ul (4.8-10.8)
[2023-06-04 08:14] LABS: Albumin Level 3.6 gm/dl (3.4-5.0); Bilirubin,Total 1.2 mg/dl (0.2-1.0); Potassium 4.3 mmol/L (3.5-5.1)
[2023-06-04 08:20] LABS: Albumin Globulin Ratio 1.4 (0.9-2); BUN Creatinine Ratio 32.3 (10-20); Creatinine Clr Calc Pharmacy 59.4 ml/min; Est GFR (African American) 86.5 ml/min; Est GFR (Non-African American) 74.6 ml/min; Globulin 2.6 gm/dl (2.5-4.0); Total Protein 6.2 gm/dl (6.0-8.3)
--- NOTE | 2023-06-04 13:04 | Hospitalist Progress Note ---
Date of Service June 04, 2023 Assessment & Plan (1) Acute HFrEF (heart failure with reduced ejection fraction): Plan: Patient presented for a leg angiogram in 05/27; however, he was hypoxic, tachypneic, and cyanotic on arrival Found to be in acute decompensated congestive heart failure Ejection fraction 15% Cardiology is on consult Continue diuresis Cardiology ordered Lasix 80 mg IV twice daily today 06/01 06/02 remains on IV Lasix 06/03 on IV Lasix , NS VT 06/04 remains on lasix Monitor input and output, daily weight (2) UTI (urinary tract infection): Plan: UA positive on arrival; unclear if this is a contaminant Clinically, patient denies dysuria, burning with urination, or urinary retention Urine cultures negative Discontinued IV Rocephin (3) Cardiomyopathy: Plan: Cardiomyopathy, etiology is unknown Ejection fraction 15% Cardiac catheterization completed for ischemic workup. [place] coronaries occluded which is chronic. Patent ATKINS-LAD. This is non ischemic cardiomyopathy Continue diuresis for now. Cardiology ordered 80 mg IV Lasix twice daily Continue metoprolol, Entresto Continue current statin (4) Elevated TSH: Plan: TSH elevated at 26.763 on arrival Free T4 WNL at 0.77 Last TSH on 01/07/23 was 3.455 No prior diagnosis of hypothyroidism Patient denies hx of thyroid issues Reached out to endocrinology, who recommended levothyroxine 25 mcg every other day (5) Elevated troponin: Plan: Troponin elevated at 50.4-->92.0 on arrival Clinically, patient denies chest pain Continuous telemetry monitoring Possible non-STEMI Cardiac catheterization showed severe multivessel coronary artery disease to the main 2 of blood vessels which is chronic. Patent grafts Patient has cardiomyopathy with EF of 15% Continue Eliquis, Lipitor, metoprolol Cardiology discontinued aspirin (6) PAD (peripheral artery disease): Plan: Continue statin (7) Hypercholesterolemia: Plan: Continue atorvastatin (8) Hypertension: Plan: Hold lisinopril in the setting of borderline YANELI Continue metoprolol (9) Gout, joint: Plan: Continue allopurinol (10) Atrial fibrillation: Plan: New onset atrial fibrillation with RVR Asymptomatic [id number] score of 5 On Eliquis On metoprolol Rate controlled Keep K greater than 4, mag greater than 2. 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: Started on thiamine and folic, Seroquel 1-1 as needed Plan Full code VTE PPx: Faith Admission and Anticipated Discharge Date Admission Date: May 27, 2023 Supervising Physician Co-Signing Physician Notes Patient seen and examined, chart reviewed, case discussed with Josh Dawn, PAC and I agree with the assessment and plan as above except as otherwise noted Labs and images reviewed Cameron Gold"is a 83-year-old male with a history of peripheral vascular disease, CAD/CABG without history of CHF, hypertension, hyperlipidemia, who presented for vascular outpatient evaluation this morning for peripheral artery disease and progressive claudication when he was noted to have hypoxia, dyspnea on exertion, and concern for acute fluid overload. He was referred to the emergency department and a bedside echo was performed which showed a EF of approximately 20-25% which is new. Patient's weight on ER arrival is 88 kg, last dry weight appears to range from 77-80 kg. He was not having chest pain at time of referral and EKG did not show any acute ischemic changes, troponin was mildly elevated suspicious for demand without signs of ACS. Patient was seen at the bedside by cardiology and recommended for diuresis and optimization and consideration of catheterization evaluation once improved. At bedside patient endorses progressive lower extremity swelling and shortness of breath over several months, has not had chest pain or chest pressure at any point. Denies diaphoresis. Has had claudication for which she is seeing vascular. At the bedside patient has pitting edema through the feet, lower extremities, and thighs with some venous stasis dermatitis but no overlying warmth/tenderness. JVD is present, lung diminsihed in the bases. Acute new heart failure with reduced ejection fraction History of CAD and CABG 2001 without prior CHF Weight gain of at least 8kg. BNP >4700. CXR with bilateral effusions. Bilateral pleural effusions were present 02/2023 on CTA for vascular evaluation Lasix twice daily, [place] placed follow ins and outs titrate net 1-2 L negative daily. 400 cc output given since Lasix given, lactate is now downtrending on reassessment. Patient comfortable on reassessment. Suspect elevated lactate post to combination of hypoxia and perfusion with volume overload and now improved transient hypotension. Cardiology consulted, patient presentation not consistent with ACS may have had silent ischemic event and is high risk with history of peripheral artery disease and CABG. No chest pain at any point. EKG without acute ischemic changes Continue aspirin, atorvastatin. Cilostazol held due to development of CHF Peripheral artery disease Patient with worsening claudication limiting his ability to walk and use the treadmill. Was seeing vascular for evaluation as outpatient type referral CTAA/P with runoff in February with hemodynamically significant stenosis of bilateral iliacs, right superficial femoral, and right posterior tibial artery. Patient did have moderate bilateral pleural effusions at that time Aspirin, statin, cilostazol continued Borderline YANELI with baseline creatinine around 1.80.94 elevated to 1.32 on admission, suspect congested and patient is clinically volume overloaded. Lasix as noted Hypothyroidism/subclinical hypothyroid No prior personal history or family history of hypothyroidism TSH 26 on admission, free T4 is low end of normal 0.77. Discussed with endocrine would consider this over hypothyroidism especially in setting of CHF and free T4 is lower end of normal. Would recommend treatment with 25 mcg every other day at this time and this will also likely help with cardiac contractility and peripheral vascular resistance. - 25mcg every other day, will follow-up with outpatient TFTs and adjust as needed Patient was given 1 dose of Rocephin for infected versus contaminated UA with moderate epithelial cells. Patient reports he has had no urinary symptoms, no fevers and chills. Will defer further antibiotics but follow for symptoms and UC. Agree with assessment and management otherwise as above Subjective Patient is very sleepy , received Seroquel last night for agitation, was getting more confused last evening Physical Exam Physical Exam: head is atraumatic , normocephalic Eyes sclerae anicteric Neck supple no JVD no carotid bruit Lungs diminished breath sound bilaterally Heart sounds regular no murmurs gallops rubs appreciated Abdomen soft nontender nondistended bowel sounds present Extremities 3+ pitting edema present neuro confused Results & Data Results & Data Vital Signs (Past 12 Hours) Vital Signs Temp Pulse Pulse Resp BP Pulse Ox O2 Del Method 06/04/23 11:08 35.9 C L 95 H 18 117/71 91 Room Air 06/04/23 11:01 Room Air, Nasal Cannula 06/04/23 07:51 87 17 114/78 93 Room Air 06/04/23 03:02 36.4 C L 84 21 104/65 93 Room Air O2 Flow Rate 06/04/23 11:08 02/10/24 11:01 2 06/04/23 07:51 06/04/23 03:02 PG Care Time/CCT Total # of Minutes Spent Total Time Spent with Patient: Total time spent is greater than 50% in coordination of care (as documented) at patient's floor/unit and/or counseling patient: Coding Level of Care Code 41182 SUB INP/OBS CARE 2/35MIN Diagnoses Acute HFrEF (heart failure with reduced ejection fraction) I50.21 UTI (urinary tract infection) N39.0 Cardiomyopathy I42.9 Elevated TSH R79.89 Elevated troponin R79.89 PAD (peripheral artery disease) I73.9 Hypercholesterolemia E78.00 Hypertension I10 Gout, joint M10.9 Atrial fibrillation I48.91 Alcohol abuse F10.10 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
[2023-06-04] MEDS: FUROSEMIDE 40 MG TAB PO SCH (19:28)
[2023-06-05 06:33] LABS: Hematocrit (blood only) 44.1 % (42.0-52.0); Mean Corpuscular Hemoglobin 30.3 pg (25.0-34.0); Mean Corpuscular Volume 89.1 fL (80.0-100.0); Mean Platelet Volume 11.3 fL (9.4-12.4); Platelet Count 184 K/uL (130-400); RDW Coefficient of Variation 17.2 % (11.5-14.5); RDW Standard Deviation 54.7 fL (36.4-46.3); Red Blood Count 4.95 M/uL (4.70-6.10); White Blood Count 6.57 K/ul (4.8-10.8)
[2023-06-05 06:50] LABS: Albumin Globulin Ratio 1.3 (0.9-2); Albumin Level 3.2 gm/dl (3.4-5.0); BUN Creatinine Ratio 34.1 (10-20); Bilirubin,Total 1.1 mg/dl (0.2-1.0); Calcium 8.8 mg/dl (8.6-10.3); Creatinine Clr Calc Pharmacy 62.8 ml/min; Est GFR (African American) 90.8 ml/min; Est GFR (Non-African American) 78.3 ml/min; Globulin 2.5 gm/dl (2.5-4.0); Potassium 3.9 mmol/L (3.5-5.1); Total Protein 5.7 gm/dl (6.0-8.3)
[2023-06-05] MEDS: POTASSIUM CHLORIDE CRTAB 20 MEQ TABCR PO STA (08:52)
--- NOTE | 2023-06-05 14:30 | Hospitalist Progress Note ---
Date of Service June 05, 2023 Assessment & Plan (1) Acute HFrEF (heart failure with reduced ejection fraction): Plan: Patient presented for a leg angiogram in 05/27; however, he was hypoxic, tachypneic, and cyanotic on arrival Found to be in acute decompensated congestive heart failure Ejection fraction 15% Cardiology is on consult Continue diuresis Cardiology ordered Lasix 80 mg IV twice daily today 06/01 06/02 remains on IV Lasix 06/03 on IV Lasix , NS VT 06/04 remains on lasix 06/05 lasix, will add Spironolactone Monitor input and output, daily weight (2) UTI (urinary tract infection): Plan: UA positive on arrival; unclear if this is a contaminant Clinically, patient denies dysuria, burning with urination, or urinary retention Urine cultures negative Discontinued IV Rocephin remove espinal (3) Cardiomyopathy: Plan: Cardiomyopathy, etiology is unknown Ejection fraction 15% Cardiac catheterization completed for ischemic workup. [place] coronaries occluded which is chronic. Patent ATKINS-LAD. This is non ischemic cardiomyopathy Continue diuresis for now. Cardiology ordered 80 mg IV Lasix twice daily Continue metoprolol, Entresto Continue current statin life vest ? ICD ? (4) Elevated TSH: Plan: TSH elevated at 26.763 on arrival Free T4 WNL at 0.77 Last TSH on 01/07/23 was 3.455 No prior diagnosis of hypothyroidism Patient denies hx of thyroid issues Reached out to endocrinology, who recommended levothyroxine 25 mcg every other day (5) Elevated troponin: Plan: Troponin elevated at 50.4-->92.0 on arrival Clinically, patient denies chest pain Continuous telemetry monitoring Possible non-STEMI Cardiac catheterization showed severe multivessel coronary artery disease to the main 2 of blood vessels which is chronic. Patent grafts Patient has cardiomyopathy with EF of 15% Continue Eliquis, Lipitor, metoprolol Cardiology discontinued aspirin (6) PAD (peripheral artery disease): Plan: Continue statin (7) Hypercholesterolemia: Plan: Continue atorvastatin (8) Hypertension: Plan: Hold lisinopril in the setting of borderline YANELI Continue metoprolol (9) Gout, joint: Plan: Continue allopurinol (10) Atrial fibrillation: Plan: New onset atrial fibrillation with RVR Asymptomatic [id number] score of 5 On Eliquis On metoprolol Rate controlled Keep K greater than 4, mag greater than 2. 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: Plan: Started on thiamine and folic, Seroquel Plan Full code VTE PPx: Eliquis stable for rehab needs input from card about life vest , ICD DNR as per discussion with family , patient Admission and Anticipated Discharge Date Admission Date: May 27, 2023 Subjective Patient is very sleepy , received Seroquel last night for agitation, was getting more confused last evening Review of Systems Review of Systems: Reports her shortness of breath, swelling, denies fever or chills Physical Exam Physical Exam: head is atraumatic , normocephalic Eyes sclerae anicteric Neck supple no JVD no carotid bruit Lungs diminished breath sound bilaterally Heart sounds regular no murmurs gallops rubs appreciated Abdomen soft nontender nondistended bowel sounds present Extremities 3+ pitting edema present neuro confused Results & Data Results & Data Vital Signs (Past 12 Hours) Vital Signs Temp Pulse Pulse Resp BP Pulse Ox O2 Del Method 06/05/23 11:19 36.6 C 72 19 98/61 L 94 Room Air 06/05/23 09:24 67 06/05/23 07:52 Room Air 06/05/23 04:00 36.6 C 85 19 116/68 96 Room Air PG Care Time/CCT Total # of Minutes Spent Total Time Spent with Patient: Total time spent is greater than 50% in coordination of care (as documented) at patient's floor/unit and/or counseling patient: Coding Level of Care Code 50497 SUB INP/OBS CARE 2/35MIN Diagnoses Acute HFrEF (heart failure with reduced ejection fraction) I50.21 UTI (urinary tract infection) N39.0 Cardiomyopathy I42.9 Elevated TSH R79.89 Elevated troponin R79.89 PAD (peripheral artery disease) I73.9 Hypercholesterolemia E78.00 Hypertension I10 Gout, joint M10.9 Atrial fibrillation I48.91 Alcohol abuse F10.10 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
[2023-06-05] MEDS: SPIRONOLACTONE 25 MG TAB PO ONE (15:19)
[2023-06-05] MEDS: QUEtiapine FUMARATE 25 MG TABLET PO PRN (20:11)
[2023-06-06 07:53] LABS: Hematocrit (blood only) 45.7 % (42.0-52.0); Mean Corpuscular Hgb Conc 32.8 g/dL (32.0-36.0); Mean Corpuscular Volume 91.4 fL (80.0-100.0); Mean Platelet Volume 10.9 fL (9.4-12.4); Platelet Count 203 K/uL (130-400); RDW Coefficient of Variation 18.8 % (11.5-14.5); RDW Standard Deviation 60.5 fL (36.4-46.3); White Blood Count 5.96 K/ul (4.8-10.8)
[2023-06-06 08:22] LABS: Albumin Globulin Ratio 1.3 (0.9-2); Albumin Level 3.3 gm/dl (3.4-5.0); Calcium 8.9 mg/dl (8.6-10.3); Creatinine Clr Calc Pharmacy 58.8 ml/min; Est GFR (African American) 85.3 ml/min; Est GFR (Non-African American) 73.6 ml/min; Globulin 2.6 gm/dl (2.5-4.0); Magnesium 1.9 mg/dl (1.7-2.4); Potassium 4.1 mmol/L (3.5-5.1); Total Protein 5.9 gm/dl (6.0-8.3)
--- NOTE | 2023-06-06 10:57 | Hospitalist Progress Note ---
Date of Service June 06, 2023 Assessment & Plan (1) Acute HFrEF (heart failure with reduced ejection fraction): Plan: Patient presented for a leg angiogram in 05/27; however, he was hypoxic, tachypneic, and cyanotic on arrival Found to be in acute decompensated congestive heart failure 2D echo showed ejection fraction 15% Cardiology is on consult Continue diuresis and spironolactone Monitor input and output, daily weight (2) UTI (urinary tract infection): Plan: UA positive on arrival; unclear if this is a contaminant Clinically, patient denies dysuria, burning with urination, or urinary retention Urine cultures negative Discontinued IV Rocephin remove espinal (3) Cardiomyopathy: Plan: Cardiomyopathy, etiology is unknown Ejection fraction 15% Cardiac catheterization completed for ischemic workup. [place] coronaries occluded which is chronic. Patent ATKINS-LAD. This is non ischemic cardiomyopathy Continue diuresis for now. Cardiology ordered 80 mg IV Lasix twice daily Continue metoprolol, Entresto Continue current statin life vest ? ICD ? (4) Elevated TSH: Plan: TSH elevated at 26.763 on arrival Free T4 WNL at 0.77 Last TSH on 01/07/23 was 3.455 No prior diagnosis of hypothyroidism Patient denies hx of thyroid issues Reached out to endocrinology, who recommended levothyroxine 25 mcg every other day (5) Elevated troponin: Plan: Troponin elevated at 50.4-->92.0 on arrival Clinically, patient denies chest pain Continuous telemetry monitoring Possible non-STEMI Cardiac catheterization showed severe multivessel coronary artery disease to the main 2 of blood vessels which is chronic. Patent grafts Patient has cardiomyopathy with EF of 15% Continue Eliquis, Lipitor, metoprolol Cardiology discontinued aspirin (6) PAD (peripheral artery disease): Plan: Continue statin (7) Hypercholesterolemia: Plan: Continue atorvastatin (8) Hypertension: Plan: Hold lisinopril in the setting of borderline YANELI Continue metoprolol (9) Gout, joint: Plan: Continue allopurinol (10) Atrial fibrillation: Plan: New onset atrial fibrillation with RVR Asymptomatic [id number] score of 5 On Eliquis On metoprolol Rate controlled Keep K greater than 4, mag greater than 2. 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 Authorization was denied,. Peer to peer evaluation pending Admission and Anticipated Discharge Date Admission Date: May 27, 2023 Subjective Patient seen and examined, son by the bedside who came from [facility] to see him. Participating in physical therapy denies any new complaints. Review of Systems Review of Systems: All systems reviewed are negative, apart from the ones contained in the history. Physical Exam Physical Exam: The patient is awake, alert and oriented 3, well developed and well nourished, normocephalic and atraumatic, lying in bed and in no acute distress. HEENT--PERRL, EOMI, mucous membranes and oropharynx mildly dry Neck--supple. No JVD. No bruits. Thyroid normal, trachea midline, no adenopathy. Heart--normal S1 and S2. No murmurs, rubs or gallops. Lungs--clear bilaterally, no respiratory distress, no accessory muscle use. Abdomen--normal bowel sounds and soft. Mild epigastric and left sided abdominal pain Extremities--bilateral leg edema Dermatologic--normal skin turgor, normal color, no abnormal lymph nodes, no rash. Neurologic--cranial nerves II through XII grossly intact. Rheumatologic--normal range of motion. Psychiatric--normal affect. Results & Data Results & Data Vital Signs (Past 12 Hours) Vital Signs Temp Pulse Pulse Resp BP BP Pulse Ox 06/06/23 07:47 97.5 F L 76 19 97/61 L 91 06/06/23 03:12 97.7 F 81 18 96/60 L 93 06/05/23 23:00 71 O2 Del Method 06/06/23 07:47 Room Air 06/06/23 03:12 Room Air 06/05/23 23:00 PG Care Time/CCT Total # of Minutes Spent Total Time Spent with Patient: Total time spent is greater than 50% in coordination of care (as documented) at patient's floor/unit and/or counseling patient: Coding Level of Care Code 62580 SUB INP/OBS CARE 2/35MIN Diagnoses Acute HFrEF (heart failure with reduced ejection fraction) I50.21 UTI (urinary tract infection) N39.0 Cardiomyopathy I42.9 Elevated TSH R79.89 Elevated troponin R79.89 PAD (peripheral artery disease) I73.9 Hypercholesterolemia E78.00 Hypertension I10 Gout, joint M10.9 Atrial fibrillation I48.91 Alcohol abuse F10.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
[2023-06-07 08:11] LABS: Albumin Globulin Ratio 1.2 (0.9-2); Albumin Level 3.3 gm/dl (3.4-5.0); BUN Creatinine Ratio 29.9 (10-20); Bilirubin,Total 1.3 mg/dl (0.2-1.0); Est GFR (African American) 91.2 ml/min; Est GFR (Non-African American) 78.7 ml/min; Globulin 2.7 gm/dl (2.5-4.0); Magnesium 1.8 mg/dl (1.7-2.4); Potassium 3.8 mmol/L (3.5-5.1)
--- NOTE | 2023-06-07 11:20 | Cardiology Progress Note ---
Date of Service June 07, 2023 Assessment & Plan (1) Acute HFrEF (heart failure with reduced ejection fraction): Plan: EF 15%, global LV dysfunction Nonischemic cardiomyopathy. Suspect at least in part related to alcohol intake (3-4 beers a day). BRENDA/UPEP pending 2. CAD post 4V CABG 2001 -- Patent ATKINS-LAD with LT to RT collaterals, Patent SVG to OM. [place] vessels occluded 3. Bilateral lower extremity PADclaudication, bilateral HEMANT, severe right SFA stenosis 4. New onset atrial fibrillation with RVRasymptomatic, [id number] 5, reasonably rate controlled 5. Hypertensionstable, BB/ARNI 6. Hypothyroidismnew, started on Synthroid 7. Questionable UTInow off ceftriaxone, blood cultures NG, espinal removed 8. Cognitive impairment with intermittent confusionlives independently, awaiting SNF 9. NSVTasymptomatic, <8 beats 10. Paroxysmal SVT 11. Hyponatremia-- resolved Well-perfused but persistent congestion on exam. Mild hypoxia today Unclear recent urine output but down 7 pounds from admission Renal function, electrolytes stable -- No need for additional revascularization. Patent grafts with collaterals. Cardiomyopathy is nonischemic. With overall prognosis and mental status no plans for LifeVest. LV function to be reassessed as an outpatient after 3-months but unlikely to be a ICD candidate Lower extremities well-perfused and leg pain improved with diuresis. Ambulation limited and no reports of claudication. No plans for lower extremity angiogram Additional IV lasix today, restart 80 mg twice daily Start spironolactone 12.5 mg Continue daily weights, track output as able Continue Toprol-XL 50 mg twice daily Continue Entresto Continue Eliquis, statin Follow-up UPEP, BRENDA Admission and Anticipated Discharge Date Admission Date: May 27, 2023 Subjective Patient resting comfortably. Seen with patient's son Tanner today. Per son patient was up walking in halls earlier with walker. O2 sat down to high 70s with sitting up in chair and now on 3 L nasal cannula. No reported chest pain or shortness of breath with walking. Son feels urine output reduced Telemetry reviewedprimarily sinus rhythm, paroxysmal A-fib, heart rate 100 and below Review of Systems Review of Systems: Unobtainable due to cognitive status Physical Exam Physical Exam: General: Lying flat, resting comfortably HEENT: Sclerae anicteric Lungs: Decreased breath sounds at bases bilaterally Cardiac: Regular premature beats, no murmurs, JVD persists Vascular: 2+ radial Abdomen: Soft, nontender Extremities: 1-2+ + edema to shins, mild erythema/stasis dermatitis. No weeping Neuro: Nonfocal Psych: Sleepy, able to carry on brief conversation Results & Data Vital Signs (Past 12 Hours) Vital Signs Temp Pulse Resp BP Pulse Ox O2 Del Method O2 Flow Rate 06/07/23 10:29 97.5 F L 79 18 109/61 93 Nasal Cannula 2 06/07/23 08:00 Nasal Cannula 3 06/07/23 07:18 98.4 F 125 H 18 115/60 92 Nasal Cannula 3 06/07/23 03:11 97.3 F L 83 19 122/76 91 Room Air PG Care Time/CCT Total # of Minutes Spent Total Time Spent with Patient: Total time spent is greater than 50% in coordination of care (as documented) at patient's floor/unit and/or counseling patient: Coding Level of Care Code 98268 SUB INP/OBS CARE 3/50MIN Diagnoses Acute HFrEF (heart failure with reduced ejection fraction) I50.21
[2023-06-07] MEDS: SPIRONOLACTONE 12.5 MG TAB PO SCH (12:04)
[2023-06-07] MEDS: FUROSEMIDE 40 MG/4 ML VIAL IV ONE (12:05)
--- NOTE | 2023-06-07 12:33 | Hospitalist Progress Note ---
Date of Service June 07, 2023 Assessment & Plan (1) Acute HFrEF (heart failure with reduced ejection fraction): Plan: Patient presented for a leg angiogram in 05/27; however, he was hypoxic, tachypneic, and cyanotic on arrival Found to be in acute decompensated congestive heart failure 2D echo showed ejection fraction 15% Cardiology is on consult They recommend known additional revascularization, close cardiomyopathy is nonischemic. With his overall prognosis and mental status, there is no plan for LifeVest and is unlikely to be an ICD candidate. Continue Lasix 80 mg twice daily, spironolactone 12.5 mg Monitor input and output, daily weight Continue Entresto, Eliquis statin and Toprol 50 mg twice daily. (2) UTI (urinary tract infection): Plan: Negative urine cultures Received some antibiotics initially However this has been discontinued [place] has also been discontinued. (3) Cardiomyopathy: Plan: Cardiomyopathy, etiology is unknown Ejection fraction 15% Cardiac catheterization completed for ischemic workup. [place] coronaries occluded which is chronic. Patent ATKINS-LAD. This is non ischemic cardiomyopathy Continue diuresis for now. Cardiology ordered 80 mg IV Lasix twice daily Continue metoprolol, Entresto Continue current statin (4) Elevated TSH: Plan: TSH elevated at 26.763 on arrival Free T4 WNL at 0.77 Last TSH on 01/07/23 was 3.455 No prior diagnosis of hypothyroidism Patient denies hx of thyroid issues Reached out to endocrinology, who recommended levothyroxine 25 mcg every other day (5) Elevated troponin: Plan: Troponin elevated at 50.4-->92.0 on arrival Clinically, patient denies chest pain Continuous telemetry monitoring Possible non-STEMI Cardiac catheterization showed severe multivessel coronary artery disease to the main 2 of blood vessels which is chronic. Patent grafts Patient has cardiomyopathy with EF of 15% Continue Eliquis, Lipitor, metoprolol Cardiology discontinued aspirin (6) PAD (peripheral artery disease): Plan: Continue statin (7) Hypercholesterolemia: Plan: Continue atorvastatin (8) Hypertension: Plan: Hold lisinopril in the setting of borderline YANELI Continue metoprolol (9) Gout, joint: Plan: Continue allopurinol (10) Atrial fibrillation: Plan: New onset atrial fibrillation with RVR Asymptomatic [id number] score of 5 On Eliquis On metoprolol Rate controlled Keep K greater than 4, mag greater than 2. 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 Authorization was denied, even after P2P Plan is SNF Admission and Anticipated Discharge Date Admission Date: May 27, 2023 Subjective Patient seen and examined, son by the bedside, has been practicing physical therapy. Review of Systems Review of Systems: All systems reviewed are negative, apart from the ones contained in the history. Physical Exam Physical Exam: The patient is awake, alert and oriented 3, well developed and well nourished, normocephalic and atraumatic, lying in bed and in no acute distress. HEENT--PERRL, EOMI, mucous membranes and oropharynx mildly dry Neck--supple. No JVD. No bruits. Thyroid normal, trachea midline, no adenopathy. Heart--normal S1 and S2. No murmurs, rubs or gallops. Lungs--clear bilaterally, no respiratory distress, no accessory muscle use. Abdomen--normal bowel sounds and soft. Mild epigastric and left sided abdominal pain Extremities--bilateral leg edema Dermatologic--normal skin turgor, normal color, no abnormal lymph nodes, no rash. Neurologic--cranial nerves II through XII grossly intact. Rheumatologic--normal range of motion. Psychiatric--normal affect. Results & Data Results & Data Vital Signs (Past 12 Hours) Vital Signs Temp Pulse Resp BP Pulse Ox O2 Del Method O2 Flow Rate 06/07/23 10:29 97.5 F L 79 18 109/61 93 Nasal Cannula 2 06/07/23 08:00 Nasal Cannula 3 06/07/23 07:18 98.4 F 125 H 18 115/60 92 Nasal Cannula 3 06/07/23 03:11 97.3 F L 83 19 122/76 91 Room Air PG Care Time/CCT Total # of Minutes Spent Total Time Spent with Patient: Total time spent is greater than 50% in coordination of care (as documented) at patient's floor/unit and/or counseling patient: Coding Level of Care Code 37556 SUB INP/OBS CARE MIN Diagnoses Acute HFrEF (heart failure with reduced ejection fraction) I50.21 UTI (urinary tract infection) N39.0 Cardiomyopathy I42.9 Elevated TSH R79.89 Elevated troponin R79.89 PAD (peripheral artery disease) I73.9 Hypercholesterolemia E78.00 Hypertension I10 Gout, joint M10.9 Atrial fibrillation I48.91 Alcohol abuse F10.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
[2023-06-07] MEDS: FUROSEMIDE 80 MG TAB PO SCH (17:06)
[2023-06-08 06:43] LABS: Hematocrit (blood only) 42.9 % (42.0-52.0); Hemoglobin 14.6 g/dl (14.0-18.0); Mean Corpuscular Hemoglobin 30.6 pg (25.0-34.0); Mean Corpuscular Volume 89.9 fL (80.0-100.0); Platelet Count 189 K/uL (130-400); RDW Standard Deviation 58.1 fL (36.4-46.3); Red Blood Count 4.77 M/uL (4.70-6.10); White Blood Count 10.51 K/ul (4.8-10.8)
[2023-06-08 07:20] LABS: Albumin Globulin Ratio 1.2 (0.9-2); BUN Creatinine Ratio 26.6 (10-20); Bilirubin,Total 1.4 mg/dl (0.2-1.0); Calcium 8.7 mg/dl (8.6-10.3); Creatinine Clr Calc Pharmacy 69.6 ml/min; Est GFR (African American) 94.9 ml/min; Est GFR (Non-African American) 81.9 ml/min; Globulin 2.5 gm/dl (2.5-4.0); Magnesium 1.6 mg/dl (1.7-2.4); Potassium 3.6 mmol/L (3.5-5.1); Total Protein 5.5 gm/dl (6.0-8.3)
--- NOTE | 2023-06-08 12:35 | Hospitalist Progress Note ---
Date of Service June 08, 2023 Assessment & Plan (1) Acute HFrEF (heart failure with reduced ejection fraction): Plan: Patient presented for a leg angiogram in 05/27; however, he was hypoxic, tachypneic, and cyanotic on arrival Found to be in acute decompensated congestive heart failure 2D echo showed ejection fraction 15% Cardiology is on consult They recommend known additional revascularization, close cardiomyopathy is nonischemic. With his overall prognosis and mental status, there is no plan for LifeVest and is unlikely to be an ICD candidate. Continue Lasix 80 mg twice daily, spironolactone 12.5 mg Monitor input and output, daily weight Continue Entresto, Eliquis statin and Toprol 50 mg twice daily. (2) UTI (urinary tract infection): Plan: Negative urine cultures Received some antibiotics initially However this has been discontinued [place] has also been discontinued. (3) Cardiomyopathy: Plan: Cardiomyopathy, etiology is unknown Ejection fraction 15% Cardiac catheterization completed for ischemic workup. [place] coronaries occluded which is chronic. Patent ATKINS-LAD. This is non ischemic cardiomyopathy Continue diuresis for now. Cardiology ordered 80 mg IV Lasix twice daily Continue metoprolol, Entresto Continue current statin (4) Elevated TSH: Plan: TSH elevated at 26.763 on arrival Free T4 WNL at 0.77 Last TSH on 01/07/23 was 3.455 No prior diagnosis of hypothyroidism Patient denies hx of thyroid issues Reached out to endocrinology, who recommended levothyroxine 25 mcg every other day (5) Elevated troponin: Plan: Troponin elevated at 50.4-->92.0 on arrival Clinically, patient denies chest pain Continuous telemetry monitoring Possible non-STEMI Cardiac catheterization showed severe multivessel coronary artery disease to the main 2 of blood vessels which is chronic. Patent grafts Patient has cardiomyopathy with EF of 15% Continue Eliquis, Lipitor, metoprolol Cardiology discontinued aspirin (6) PAD (peripheral artery disease): Plan: Continue statin (7) Hypercholesterolemia: Plan: Continue atorvastatin (8) Hypertension: Plan: Hold lisinopril in the setting of borderline YANELI Continue metoprolol (9) Gout, joint: Plan: Continue allopurinol (10) Atrial fibrillation: Plan: New onset atrial fibrillation with RVR Asymptomatic [id number] score of 5 On Eliquis On metoprolol Rate controlled Keep K greater than 4, mag greater than 2. 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 If Authorization is denied, even after P2P Plan would be SNF Admission and Anticipated Discharge Date Admission Date: May 27, 2023 Subjective Patient seen and examined, son by the bedside, has been participating in physical therapy. Review of Systems Review of Systems: All systems reviewed are negative, apart from the ones contained in the history. Physical Exam Physical Exam: The patient is awake, alert and oriented 3, well developed and well nourished, normocephalic and atraumatic, lying in bed and in no acute distress. HEENT--PERRL, EOMI, mucous membranes and oropharynx mildly dry Neck--supple. No JVD. No bruits. Thyroid normal, trachea midline, no adenopathy. Heart--normal S1 and S2. No murmurs, rubs or gallops. Lungs--clear bilaterally, no respiratory distress, no accessory muscle use. Abdomen--normal bowel sounds and soft. Mild epigastric and left sided abdominal pain Extremities--bilateral leg edema Dermatologic--normal skin turgor, normal color, no abnormal lymph nodes, no rash. Neurologic--cranial nerves II through XII grossly intact. Rheumatologic--normal range of motion. Psychiatric--normal affect. Results & Data Results & Data Vital Signs (Past 12 Hours) Vital Signs Temp Pulse Pulse Resp BP Pulse Ox O2 Del Method 06/08/23 08:00 Room Air 06/08/23 07:22 97.5 F L 86 17 119/66 94 Room Air 06/08/23 02:46 98.2 F 85 18 106/66 94 Nasal Cannula O2 Flow Rate 06/08/23 08:00 06/08/23 07:22 06/08/23 02:46 2 PG Care Time/CCT Total # of Minutes Spent Total Time Spent with Patient: Total time spent is greater than 50% in coordination of care (as documented) at patient's floor/unit and/or counseling patient: Coding Level of Care Code 89158 SUB INP/OBS CARE MIN Diagnoses Acute HFrEF (heart failure with reduced ejection fraction) I50.21 UTI (urinary tract infection) N39.0 Cardiomyopathy I42.9 Elevated TSH R79.89 Elevated troponin R79.89 PAD (peripheral artery disease) I73.9 Hypercholesterolemia E78.00 Hypertension I10 Gout, joint M10.9 Atrial fibrillation I48.91 Alcohol abuse F10.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
[2023-06-09 08:41] LABS: BUN Creatinine Ratio 23.3 (10-20); Calcium 8.7 mg/dl (8.6-10.3); Creatinine Clr Calc Pharmacy 58.7 ml/min; Est GFR (African American) 91.6 ml/min; Est GFR (Non-African American) 79.1 ml/min; Potassium 3.5 mmol/L (3.5-5.1)
[2023-06-09] MEDS: ACETAMINOPHEN 325 MG TAB PO PRN (11:03)
--- NOTE | 2023-06-09 11:53 | Hospitalist Progress Note ---
Date of Service June 09, 2023 Assessment & Plan (1) Acute HFrEF (heart failure with reduced ejection fraction): Plan: Patient presented for a leg angiogram in 05/27; however, he was hypoxic, tachypneic, and cyanotic on arrival Found to be in acute decompensated congestive heart failure 2D echo showed ejection fraction 15% Cardiology is on consult They recommend known additional revascularization, close cardiomyopathy is nonischemic. With his overall prognosis and mental status, there is no plan for LifeVest and is unlikely to be an ICD candidate. Continue Lasix 80 mg twice daily, spironolactone 12.5 mg Monitor input and output, daily weight Continue Entresto, Eliquis statin and Toprol 50 mg twice daily. (2) UTI (urinary tract infection): Plan: Negative urine cultures Received some antibiotics initially However this has been discontinued [place] has also been discontinued. (3) Cardiomyopathy: Plan: Cardiomyopathy, etiology is unknown Ejection fraction 15% Cardiac catheterization completed for ischemic workup. [place] coronaries occluded which is chronic. Patent ATKINS-LAD. This is non ischemic cardiomyopathy Continue diuresis for now. Cardiology ordered 80 mg IV Lasix twice daily He has been diuresing well, leg swelling reduced Continue metoprolol, Entresto Continue current statin (4) Elevated TSH: Plan: TSH elevated at 26.763 on arrival Free T4 WNL at 0.77 Last TSH on 01/07/23 was 3.455 No prior diagnosis of hypothyroidism Patient denies hx of thyroid issues Reached out to endocrinology, who recommended levothyroxine 25 mcg every other day (5) Elevated troponin: Plan: Troponin elevated at 50.4-->92.0 on arrival Clinically, patient denies chest pain Continuous telemetry monitoring Possible non-STEMI Cardiac catheterization showed severe multivessel coronary artery disease to the main 2 of blood vessels which is chronic. Patent grafts Patient has cardiomyopathy with EF of 15% Continue Eliquis, Lipitor, metoprolol Cardiology discontinued aspirin (6) PAD (peripheral artery disease): Plan: Continue statin (7) Hypercholesterolemia: Plan: Continue atorvastatin (8) Hypertension: Plan: Hold lisinopril in the setting of borderline YANELI Continue metoprolol (9) Gout, joint: Plan: Continue allopurinol (10) Atrial fibrillation: Plan: New onset atrial fibrillation with RVR Asymptomatic [id number] score of 5 On Eliquis On metoprolol Rate controlled Keep K greater than 4, mag greater than 2. 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 Hopefully discharge in next 48 hours Admission and Anticipated Discharge Date Admission Date: May 27, 2023 Subjective Patient seen and examined, son by the bedside, has been participating in physical therapy. SNF was denied by insurance Review of Systems Review of Systems: All systems reviewed are negative, apart from the ones contained in the history. Physical Exam Physical Exam: The patient is awake, alert and oriented 3, well developed and well nourished, normocephalic and atraumatic, lying in bed and in no acute distress. HEENT--PERRL, EOMI, mucous membranes and oropharynx mildly dry Neck--supple. No JVD. No bruits. Thyroid normal, trachea midline, no adenopathy. Heart--normal S1 and S2. No murmurs, rubs or gallops. Lungs--clear bilaterally, no respiratory distress, no accessory muscle use. Abdomen--normal bowel sounds and soft. Mild epigastric and left sided abdominal pain Extremities--bilateral leg edema Dermatologic--normal skin turgor, normal color, no abnormal lymph nodes, no rash. Neurologic--cranial nerves II through XII grossly intact. Rheumatologic--normal range of motion. Psychiatric--normal affect. Results & Data Results & Data Vital Signs (Past 12 Hours) Vital Signs Temp Pulse Resp BP Pulse Ox O2 Del Method 06/09/23 11:05 97.5 F L 77 19 108/52 L 93 Room Air 06/09/23 08:00 Room Air 06/09/23 07:25 97.3 F L 84 16 107/71 92 Room Air 06/09/23 02:53 97.7 F 67 20 109/66 91 Room Air PG Care Time/CCT Total # of Minutes Spent Total Time Spent with Patient: Total time spent is greater than 50% in coordination of care (as documented) at patient's floor/unit and/or counseling patient: Coding Level of Care Code 37811 SUB INP/OBS CARE 2MIN Diagnoses Acute HFrEF (heart failure with reduced ejection fraction) I50.21 UTI (urinary tract infection) N39.0 Cardiomyopathy I42.9 Elevated TSH R79.89 Elevated troponin R79.89 PAD (peripheral artery disease) I73.9 Hypercholesterolemia E78.00 Hypertension I10 Gout, joint M10.9 Atrial fibrillation I48.91 Alcohol abuse F10.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
[2023-06-10] MEDS: MELATONIN 3 MG TAB PO PRN
--- NOTE | 2023-06-10 10:31 | Hospitalist Progress Note ---
Date of Service June 10, 2023 Assessment & Plan (1) Acute HFrEF (heart failure with reduced ejection fraction): Plan: Patient presented for a leg angiogram in 05/27; however, he was hypoxic, tachypneic, and cyanotic on arrival Found to be in acute decompensated congestive heart failure 2D echo showed ejection fraction 15% Cardiology is on consult They recommend known additional revascularization, close cardiomyopathy is nonischemic. With his overall prognosis and mental status, there is no plan for LifeVest and is unlikely to be an ICD candidate. Continue Lasix 80 mg twice daily, spironolactone 12.5 mg Monitor input and output, daily weight Continue Entresto, Eliquis statin and Toprol 50 mg twice daily. He has bilateral leg edema is much improved, his exercise tolerance is also better (2) UTI (urinary tract infection): Plan: Negative urine cultures Received some antibiotics initially, which I discontinued (3) Cardiomyopathy: Plan: Cardiomyopathy, etiology is unknown Ejection fraction 15% Cardiac catheterization completed for ischemic workup. [place] coronaries occluded which is chronic. Patent ATKINS-LAD. This is non ischemic cardiomyopathy Continue diuresis for now. Cardiology ordered 80 mg IV Lasix twice daily He has been diuresing well, leg swelling reduced Continue metoprolol, Entresto Continue current statin (4) Elevated TSH: Plan: TSH elevated at 26.763 on arrival Free T4 WNL at 0.77 Last TSH on 01/07/23 was 3.455 No prior diagnosis of hypothyroidism Patient denies hx of thyroid issues Reached out to endocrinology, who recommended levothyroxine 25 mcg every other day (5) Elevated troponin: Plan: Troponin elevated at 50.4-->92.0 on arrival Clinically, patient denies chest pain Continuous telemetry monitoring Possible non-STEMI Cardiac catheterization showed severe multivessel coronary artery disease to the main 2 of blood vessels which is chronic. Patent grafts Patient has cardiomyopathy with EF of 15% Continue Eliquis, Lipitor, metoprolol Cardiology discontinued aspirin (6) PAD (peripheral artery disease): Plan: Continue statin (7) Hypercholesterolemia: Plan: Continue atorvastatin (8) Hypertension: Plan: Hold lisinopril in the setting of borderline YANELI Continue metoprolol (9) Gout, joint: Plan: Continue allopurinol (10) Atrial fibrillation: Plan: New onset atrial fibrillation with RVR Asymptomatic [id number] score of 5 On Eliquis On metoprolol Rate controlled Keep K greater than 4, mag greater than 2. 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 Hopefully discharge in next 24 hours Admission and Anticipated Discharge Date Admission Date: May 27, 2023 Subjective Patient seen and examined, son by the bedside, has been participating in physical therapy. SNF was denied by insurance Review of Systems Review of Systems: All systems reviewed are negative, apart from the ones contained in the history. Physical Exam Physical Exam: The patient is awake, alert and oriented 3, well developed and well nourished, normocephalic and atraumatic, lying in bed and in no acute distress. HEENT--PERRL, EOMI, mucous membranes and oropharynx mildly dry Neck--supple. No JVD. No bruits. Thyroid normal, trachea midline, no adenopathy. Heart--normal S1 and S2. No murmurs, rubs or gallops. Lungs--clear bilaterally, no respiratory distress, no accessory muscle use. Abdomen--normal bowel sounds and soft. Extremities--much improved bilateral leg edema Dermatologic--normal skin turgor, normal color, no abnormal lymph nodes, no rash. Neurologic--cranial nerves II through XII grossly intact. Rheumatologic--normal range of motion. Psychiatric--normal affect. Results & Data Results & Data Vital Signs (Past 12 Hours) Vital Signs Temp Pulse Resp BP Pulse Ox O2 Del Method 06/10/23 08:03 98.2 F 85 16 116/58 L 93 Room Air 06/10/23 02:50 97.7 F 81 20 107/61 91 Room Air PG Care Time/CCT Total # of Minutes Spent Total Time Spent with Patient: Total time spent is greater than 50% in coordination of care (as documented) at patient's floor/unit and/or counseling patient: Coding Level of Care Code 94264 SUB INP/OBS CARE 2/35MIN Diagnoses Acute HFrEF (heart failure with reduced ejection fraction) I50.21 UTI (urinary tract infection) N39.0 Cardiomyopathy I42.9 Elevated TSH R79.89 Elevated troponin R79.89 PAD (peripheral artery disease) I73.9 Hypercholesterolemia E78.00 Hypertension I10 Gout, joint M10.9 Atrial fibrillation I48.91 Alcohol abuse F10.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
[2023-06-11 09:49] LABS: Calcium 8.7 mg/dl (8.6-10.3); Creatinine Clr Calc Pharmacy 59.4 ml/min; Est GFR (African American) 92.1 ml/min; Est GFR (Non-African American) 79.5 ml/min; Potassium 3.3 mmol/L (3.5-5.1)
--- NOTE | 2023-06-11 11:57 | Discharge Summary ---
Date of Service June 11, 2023 Admission HPI Per Admitting Provider Cameron is an 83-year-old male with PMH of PAD, CAD, gout, hypercholesterolemia, HTN, vascular disease, and mild cognitive impairment. He presented for a lower extremity angiogram on 05/27, and was tachypnea and cyanotic upon arrival. Bedside echo performed at this time revealed an LVEF at 20-25%, and patient was sent to the ED. No prior diagnosis of CHF. Patient reports that his SOB started months ago. He reports that is mainly FERGUSON, such as when he goes up steps, and he reports that he had to "sit down" on a step while descending for his appointment the morning of 05/27. Patient reports that his breathing is worse at night, specifically when he is laying on his back; he is coming in the habit of sleeping in his recliner. He endorses difficulty with deep breaths. He has not been taking anything additional for his difficulty breathing. He does not use supplemental oxygen at home. Patient lives by himself in an apartment building. He has 3 children, however they are not in the area. Patient's 2.5 years ago. Patient reports he is not been consistent with his daily medications; however he reports he is good with taking his metoprolol, and took it yesterday on 05/26. He did not take his regular morning medications today. He does not use any ambulatory assist devices such as cane or walker. He denies falling, but notes that he took a tumble when exiting his building today and fell forward onto his hands; no head strike; the belly dump driver who was taking to the hospital helped him get back up. History of an CA in his 40s; CABG in 2001. Patient notes an increased weight of 10 pounds over the past several months. Former tobacco cigarette smoker; quit 25 years ago. He endorses alcohol use; 1 beer yesterday; he reports that he drinks at most 3 beers per day. Patient is mildly hypothermic at 36.4 C at time of admissions; SpO2 100% on 5L NC. ED course: Rocephin 2000 mg IV Lasix 40 mg IV ROS: Patient endorses worsening FERGUSON and swelling in legs. Patient denies fever, chills, dizziness, lightheadedness, CABRAL, chest pain, chest palpitations, pleuritic CP, cough, abdominal pain, N/V/D, dysuria, burning with urination, blood in the urine/stool, or numbness/tingling in the arms or legs. Principal Diagnosis Acute on chronic congestive heart failure Discharge Exam The patient is awake, alert and oriented 3, well developed and well nourished, normocephalic and atraumatic, lying in bed and in no acute distress. HEENT--PERRL, EOMI, mucous membranes and oropharynx mildly dry Neck--supple. No JVD. No bruits. Thyroid normal, trachea midline, no adenopathy. Heart--normal S1 and S2. No murmurs, rubs or gallops. Lungs--clear bilaterally, no respiratory distress, no accessory muscle use. Abdomen--normal bowel sounds and soft. Extremities--much improved bilateral leg edema Dermatologic--normal skin turgor, normal color, no abnormal lymph nodes, no rash. Neurologic--cranial nerves II through XII grossly intact. Rheumatologic--normal range of motion. Psychiatric--normal affect. Discharge Data Allergies Allergy/AdvReac Type Severity Reaction Status Date / Time No Known Allergies Allergy Unverified 05/27/23 07:49 Consultations 05/27/23 10:32 ED Decision to Admit Stat 05/27/23 12:36 Consult Cardiology Routine Procedures Performed Operation Date: 05/30/23 07:00 Actual Procedures p Cath, Left w/Cors Vent Grafts - Dwayne Martin MD s Cineradiography w/Routine Exam - Dwayne Martin MD Ordered Studies 05/30/23 06:51 CL Cath Imgs for PACS use only Urgent Hospital Course (1) Acute HFrEF (heart failure with reduced ejection fraction): Patient presented for a leg angiogram in 05/27; however, he was hypoxic, tachypneic, and cyanotic on arrival Found to be in acute decompensated congestive heart failure 2D echo showed ejection fraction 15% Cardiology is on consult They recommend known additional revascularization, close cardiomyopathy is nonischemic. With his overall prognosis and mental status, there is no plan for LifeVest and is unlikely to be an ICD candidate. Continue Lasix 80 mg twice daily, spironolactone 12.5 mg Monitor input and output, daily weight Continue Entresto, Eliquis statin and Toprol 50 mg twice daily. He has bilateral leg edema is much improved, his exercise tolerance is also better (2) UTI (urinary tract infection): Negative urine cultures Received some antibiotics initially, which I discontinued (3) Cardiomyopathy: Cardiomyopathy, etiology is unknown Ejection fraction 15% Cardiac catheterization completed for ischemic workup. [place] coronaries occluded which is chronic. Patent ATKINS-LAD. This is non ischemic cardiomyopathy Continue diuresis for now. Cardiology ordered 80 mg IV Lasix twice daily He has been diuresing well, leg swelling reduced Continue metoprolol, Entresto Continue current statin (4) Elevated TSH: TSH elevated at 26.763 on arrival Free T4 WNL at 0.77 Last TSH on 01/07/23 was 3.455 No prior diagnosis of hypothyroidism Patient denies hx of thyroid issues Reached out to endocrinology, who recommended levothyroxine 25 mcg every other day (5) Elevated troponin: Troponin elevated at 50.4-->92.0 on arrival Clinically, patient denies chest pain Continuous telemetry monitoring Possible non-STEMI Cardiac catheterization showed severe multivessel coronary artery disease to the main 2 of blood vessels which is chronic. Patent grafts Patient has cardiomyopathy with EF of 15% Continue Eliquis, Lipitor, metoprolol Cardiology discontinued aspirin (6) PAD (peripheral artery disease): Continue statin (7) Hypercholesterolemia: Continue atorvastatin (8) Hypertension: Hold lisinopril in the setting of borderline YANELI Continue metoprolol (9) Gout, joint: Continue allopurinol (10) Atrial fibrillation: New onset atrial fibrillation with RVR Asymptomatic [id number] score of 5 On Eliquis On metoprolol Rate controlled Keep K greater than 4, mag greater than 2. 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 Discharge home. Patient will be taken to his apartment by the son and eventually he will take him to [place] next day or 2 Total Time Total Time Spent Total Time Spent (In Minutes): 35 Discharge Plan Discharge Items Patient Disposition: Home - Self-Care Reason For Visit: sob/dyspnea, tachypnic, LE edema Discharge Diagnosis: acute on chronic CHF Activity: Resume your previous activity Non-emergency contact: Primary Care Provider and Machine Operator Farmworker Call non-emergency contact if: you have any medication questions and your symptoms worsen Follow-up/Referrals: Julio C Lehman MD [Primary Care Provider] - Diet: Heart Healthy Addtl Attending Provider Instructions: please make appointment to follow up with your regular PCP and global technical writer Pending Studies at Discharge: No Stand-Alone Forms: [facility] [employer], Smoking Cessation Medications and DC Order Prescriptions: New metoprolol succinate 50 mg Tablet Extended Release 24 Hr 50 mg PO BID 30 Days Qty: 60 0RF spironolactone 25 mg Tablet 12.5 mg PO DAILY 30 Days Qty: 15 0RF levothyroxine [Synthroid] 25 mcg Tablet 25 mcg PO DAILY 30 Days Qty: 30 0RF furosemide 80 mg Tablet 80 mg PO BID17 30 Days Qty: 30 0RF Eliquis 5 mg Tablet 5 mg PO BID 30 Days Qty: 60 0RF Entresto 24-26 mg Tablet 1 tab PO BID 30 Days Qty: 60 0RF folic acid 1 mg Tablet 1 mg PO QAM 30 Days Qty: 30 0RF thiamine HCl (vitamin B1) 100 mg Tablet 100 mg PO QAM 30 Days Qty: 30 0RF potassium chloride 10 mEq capsule, extended release 10 meq PO DAILY 30 Days Qty: 30 0RF Continued atorvastatin 80 mg tablet 80 mg PO QPM Qty: 90 3RF allopurinol 300 mg tablet See Rx Instructions .ROUTE .COMPLEX Qty: 90 3RF Dose Instruction: TAKE ONE TABLET BY MOUTH DAILY Rx Instructions: TAKE ONE TABLET BY MOUTH DAILY cilostazol 100 mg tablet 100 mg PO BID Qty: 180 3RF cholecalciferol (vitamin D3) 50 mcg (2,000 unit) capsule 50 mcg PO DAILY Discontinued metoprolol succinate 100 mg tablet extended release 24 hr 150 mg PO DAILY Qty: 180 3RF lisinopril 40 mg tablet See Rx Instructions .ROUTE .COMPLEX Qty: 90 3RF Dose Instruction: TAKE ONE TABLET BY MOUTH DAILY Rx Instructions: TAKE ONE TABLET BY MOUTH DAILY Complete Multivitamin tablet 1 tab PO DAILY aspirin 81 mg tablet 81 mg PO DAILY Discharge Orders: Discharge Order (Routine); Ordered 06/11/23 Ordered By: Mike Velasquez Admission Data Admit Date/Time: 05/27/23 11:38 Attending Provider: Mike Velasquez Admit Provider: Billy Rojo Primary Care Provider: Julio C Lehman Other Providers: Billy Rojo; Dwayne Martin; [facility]; [facility]; [facility] Coding Level of Care Code 03932 INP/OBS DISCH >30 MIN Diagnoses Acute HFrEF (heart failure with reduced ejection fraction) I50.21 UTI (urinary tract infection) N39.0 Cardiomyopathy I42.9 Elevated TSH R79.89 Elevated troponin R79.89 PAD (peripheral artery disease) I73.9 Hypercholesterolemia E78.00 Hypertension I10 Gout, joint M10.9 Atrial fibrillation I48.91 Alcohol abuse F10.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
[2023-06-11] MEDS ORDERED: LIDOCAINE 1% LOCAL 20 ML VIAL INFIL ONE (14:39)
[2023-06-14 08:28] LABS: Abnormal Protein Band 1 DNR mg/24 h (NONE DETECTED); Abnormal Protein Band 2 DNR mg/24 h (NONE DETECTED); Abnormal Protein Band 3 DNR mg/24 h (NONE DETECTED); Creatinine, 24 hr Urine 0.63 g/24 h (0.50-2.15); Protein, Urine 24 Hour 60 mg/24 h (<150); Ur Protein/Creatinine Rat mg/g 95 mg/g creat (<100); Urine Protein/Creatinine Ratio 0.095 (<0.100)
== END 2023-06-11 14:40 | disposition home or self-care (01) | DRG 280 ==
LOC: ED 08:46 → 2S 11:35 → SUATTDRO 11:38

== ENCOUNTER 2023-09-16 11:48 | Inpatient (IN) ==
--- NOTE | 2023-09-16 13:56 | CT Scan Report ---
CT hip LT wo con HISTORY: 83 years-old Male fall, unable to ambulate acute pain left hip status post fall COMPARISON: None TECHNIQUE: Multiple axial CT images of the left hip were obtained without IV contrast. A dose lowerin g technique was used consistent with the principals of MARY. FINDINGS: Distended urinary bladder. Prostatomegaly. Arterial calcifications. Subcutaneous and deep tissue greer a surrounds the left hip. Trace left hip joint effusion. Demineralized appearance of the bones. Moderate left hip osteoarthritis. There is an acute comminuted and impacted transcervical left femoral fracture demonstrating apex anterolateral angulation with di splacement of approximately 1.5 cm. No dislocation, additional acute fracture identified. IMPRESSION: Acute comminuted, impacted, mildly angulated and slightly displaced transcervical left femoral fractu re. ACT 112: Negative or not required by law. The above report was generated using voice recognition software. It may contain grammatical, syntax o r spelling errors. Electronically signed by: Lowell Amato M.D. 09/16/2023 1:54 PM
[2023-09-16] MEDS ORDERED: HYDROmorphone INJ 0.5 MG/0.5 ML SYR IV PRN ×2 (14:15→19:09)
[2023-09-16 14:44] LABS: Basophils # (auto) 0.03 K/uL (0.00-0.20); Basophils % (auto) 0.4 %; Eosinophils # (auto) 0.07 K/uL (0.00-0.50); Hematocrit (blood only) 35.6 % (42.0-52.0); Hemoglobin 12.6 g/dl (14.0-18.0); Immature Granulocytes # (auto) 0.02 K/uL (0.01-0.20); Immature Granulocytes % (auto) 0.3 %; Lymphocytes # (auto) 1.26 K/uL (1.20-3.40); Lymphocytes % (auto) 17.6 %; Mean Corpuscular Hemoglobin 31.3 pg (25.0-34.0); Mean Corpuscular Hgb Conc 35.4 g/dL (32.0-36.0); Mean Corpuscular Volume 88.6 fL (80.0-100.0); Mean Platelet Volume 11.1 fL (9.4-12.4); Monocytes # (auto) 0.58 K/uL (0.11-0.59); Monocytes % (auto) 8.1 %; Neutrophils # (auto) 5.21 K/uL (1.40-6.50); Neutrophils % (auto) 72.6 %; Platelet Count 178 K/uL (130-400); RDW Coefficient of Variation 14.6 % (11.5-14.5); RDW Standard Deviation 47.1 fL (36.4-46.3); Red Blood Count 4.02 M/uL (4.70-6.10); White Blood Count 7.17 K/ul (4.8-10.8)
[2023-09-16] MEDS: SODIUM CHLORIDE 0.9% 1,000 ML IV SCH (14:45)
[2023-09-16 14:57] LABS: Albumin Globulin Ratio 1.4 (0.9-2); BUN Creatinine Ratio 37.5 (10-20); Bilirubin,Total 2.1 mg/dl (0.2-1.0); Calcium 9.5 mg/dl (8.6-10.3); Creatinine Clr Calc Pharmacy 54.4 ml/min; Est GFR (African American) 83.2 ml/min; Est GFR (Non-African American) 71.8 ml/min; Globulin 2.8 gm/dl (2.5-4.0); Potassium 4.2 mmol/L (3.5-5.1); Total Protein 6.8 gm/dl (6.0-8.3)
--- NOTE | 2023-09-16 14:57 | XRay Report ---
XR chest 1V portable CLINICAL HISTORY: hip fracture TECHNIQUE: Single frontal radiograph of the chest was obtained. Comparison: Comparison is made to chest radiograph 06/03/2023 FINDINGS: Median sternotomy wires are unchanged. Cardiomegaly is noted. The aortic arch is calcified. The lungs are clear. No evidence of pleural effusion or pneumothorax. IMPRESSION: Bilateral pleural effusions have resolved from prior exam. Stable cardiomegaly. ACT 112: Negative or not required by law. Electronically signed by: Gianfranco De Guzman M.D. 09/16/2023 2:56 PM
--- NOTE | 2023-09-16 15:16 | XRay Report ---
SINGLE VIEW PELVIS; 2 VIEWS LEFT HIP CLINICAL HISTORY: Left hip fracture. FINDINGS: An AP view of the pelvis with AP and crosstable lateral views of the left hip are correlate d with CT scan of the left hip performed the same day 09/16/2023. The skeletal structures are osteopen ic. Again seen is an acute impacted subcapital fracture of the left proximal femur. There is mild dis placement of fragments. Overlying soft tissue edema is noted. No additional acute fracture is seen in volving the right hip or the bony pelvis. Mild arthritic change and joint space narrowing is seen in the hips. Degenerative sclerosis is noted in the sacroiliac joints. There is advanced atherosclerotic calcification of the femoral arteries. Phleboliths are seen in the pelvis. IMPRESSION: Unchanged appearance of an impacted subcapital fracture of the left proximal femur as abo ve. Electronically signed by: Brian Taylor M.D. 09/16/2023 3:14 PM
--- NOTE | 2023-09-16 15:35 | History & Physical Report ---
Date of Service September 16, 2023 Assessment & Plan (1) Fracture of proximal end of left femur: Plan: Ground-level fall onto concrete on 09/12 Worsening left hip pain since Hip CT revealed acute comminuted, impacted, mildly angulated and displaced transcervical left femoral fracture Orthopedics consulted Patient may be a difficult candidate for surgery given CAD, vascular disease, and heart failure Hold Eliquis for now Plan is to go to the OR on Sunday 09/17; NPO at midnight set for 09/17 Acetaminophen as needed for pain Dilaudid as needed for breakthrough pain Lidocaine patch as needed PT/OT evaluations appreciated; left leg nonweightbearing A.m. CBC, BMP (2) PAF (paroxysmal atrial fibrillation): Plan: Hold Eliquis Continue metoprolol (3) Acute CHF: Plan: +2 pitting edema in lower extremities bilaterally Continue Lasix, Entresto, spironolactone, and K supplementation Last echo revealed LVEF at 20-25% Plan [facility]: [facility] Full code AHA, low-sodium diet (1800 mL fluid restriction) VTE PPx: Hold Eliquis; teds for now History of Present Illness Chief Complaint: Hip Pain Primary Care Provider: Julio C Lehman MD Cameron is an 83-year-old male with PMH of HTN, hypercholesteremia, CAD, vascular disease, PAD, lactic acidosis, paroxysmal atrial fibrillation (on apixaban), alcohol use, and systolic CHF. He presented for a ground-level fall onto concrete on Tuesday 09/12 around 3 PM in the afternoon. Patient reports he was walking back to his car from [employer], and suddenly tripped and fell. He struck his left hip. No head strike. No LOC. Patient is on blood thinners for paroxysmal atrial fibrillation. He was immediately helped up by to [employer] employees. He did not seek medical attention this time, however over the course the next couple days his walking got worse and it would take him "5 minutes" to walk from one room to the next. While he endorses 0/10 pain at present, he does report 9/10 left hip pain when he takes long strides/steps. No radiation down the leg. The pain stays for a few seconds then goes away. He has not been taking any pain medication for this. No prior injuries to the hip or pelvis. He does not remember any prior falls. Patient did not take his regular morning medications. His medications are managed by his daughter and granddaughter, he is not fully aware of what he takes. Patient is a former smoker but quit over 40 years ago. No recent alcohol use. Patient's vitals are stable at time of admission. ED course: NSS ROS: Patient endorses occasional left hip pain when walking, weakness in legs (which patient attributes to poor circulation), and redness and swelling in akles and feet. Patient denies fever, chills, nightsweats, dizziness, lightheadedness, CABRAL, chest pain, chest pressure, chest palpitations, SOB, cough, abdominal pain, N/V/D, saddle anesthesia, changes in urinary/bowel habits, burning with urination, or numbness/tingling in the legs. Allergies Allergy/AdvReac Type Severity Reaction Status Date / Time No Known Allergies Allergy Unverified 09/16/23 10:32 Home Medications Medication Instructions Recorded Confirmed Type apixaban 5 mg tablet (Eliquis) 5 mg PO BID #180 tabs 07/29/23 09/16/23 Rx furosemide 80 mg tablet 80 mg PO DAILY 90 days #90 tabs 07/29/23 09/16/23 Rx metoprolol succinate 50 mg 50 mg PO BID #180 tabs 07/29/23 09/16/23 Rx tablet,extended release 24 hr potassium chloride 10 mEq 10 meq PO DAILY #90 caps 07/29/23 09/16/23 Rx capsule,extended release sacubitril 24 mg-valsartan 26 mg 1 tab PO BID #180 tabs 07/29/23 09/16/23 Rx tablet (Entresto) spironolactone 25 mg tablet 12.5 mg (1/2 x 25 mg) PO DAILY #45 07/29/23 09/16/23 Rx tabs atorvastatin 80 mg tablet 80 mg PO QPM #90 tabs 08/01/23 09/16/23 Rx levothyroxine 25 mcg tablet 25 mcg PO .daily in the AM #90 tabs 08/31/23 09/16/23 Rx (Synthroid) quetiapine 25 mg tablet 25 mg PO ONCE HS #90 tabs 08/31/23 09/16/23 Rx Past Med/Surg History Problem List (Updated 09/16/23 @ 16:45 by Tripp Bowser MD) Closed left hip fracture (Acute) Fracture of proximal end of left femur Alcohol-induced persisting dementia Alcohol abuse Atrial fibrillation Cardiomyopathy Acidosis, lactic (Acute) Elevated LFTs (Acute) Elevated troponin (Acute) Acute CHF (Acute) Elevated TSH Acute HFrEF (heart failure with reduced ejection fraction) Elevated troponin Hypoxia UTI (urinary tract infection) PAD (peripheral artery disease) Claudication Vascular disease Mild cognitive impairment CAD (coronary atherosclerotic disease) (Acute) Gout, joint (Acute) Hypercholesterolemia (Acute) Hyperglycemia (Acute) Hypertension (Acute) Pre-diabetes (Acute) Medical History (Updated 09/16/23 @ 16:45 by Tripp Bowser MD) PAF (paroxysmal atrial fibrillation) Chronic systolic (congestive) heart failure Nonischemic cardiomyopathy Diverticulosis of colon Adenomatous polyp of colon Wound infection Syncope Open dislocation of right thumb Laceration of right hand Head injury Surgical History History of coronary artery bypass graft Hx of CABG H/O oral surgery Family History Mother Hypertension Dementia Hyperlipidemia Sister Hypertension Breast cancer Valvular heart disease Coronary heart disease Unknown Hyperlipidemia Grandfather Acute myocardial infarction Denies family history of Colon cancer Ovarian cancer Prostate cancer Myocardial infarction Social History Smoking Status: Former smoker Tobacco Type: Cigarettes Second Hand Exposure: Yes; Do You Dip or Chew Tobacco: No; Hx Alcohol Use: Yes Alcohol type: beer Hx Substance Use: No Preferred Language: Korean Communication Ability: Effective Visual Impairment: Partially Limited Hearing Ability: Normal Beliefs That Will Affect Care: None marital status: / marital status details: about 2.5 years ago Current Living Situation: Alone current occupational status: retired How many Children do You have: 3 How many Children do You have Comment: 3 step children Feels Safe at Home: Yes Childhood Exposure to Second-Hand Smoke: No Diet: regular during the past year weight has: remained stable Dental Care, Regularly: Yes Physical Activity Frequency: 3-4 Times per Week Seatbelt Use: always Sunscreen Use: Yes Assistive Devices: Walker Review of Systems Review of Systems: See HPI above Physical Exam Physical Exam: General: no acute distress; pleasant affect; non-toxic appearing; well- nourished; cooperative; 94% SpO2 on RA HEENT: normocephalic, atraumatic; no scleral icterus; PERRLA; moist mucus membrane; vision and hearing grossly intact Neck: supple; no lymphadenopathy; trachea midline Skin: warm, dry without signs of tenting; no cyanosis; no rashes, bruising, lesions, or erythema noted CV: chest wall NTP; RRR; S1/S2 normal; no murmurs/rubs/gallops; pulses intact and symmetric at radial, DP, and PT Lungs: no acute respiratory distress; symmetrical chest wall expansion; clear breath sounds across all lung nunez w/o adventitious sounds; no wheezing ABD: Soft, NTP; BS present; no rebound/guarding; no distention MSK: no tics or fasciculations; +2 pitting edema in the lower extremities bilaterally, erythematous around the ankles; patient demonstrates ability to wiggle toes, plantarflex/dorsiflex, and bend left knee without much pain; left hip is NTP Neuro: A&Ox3; normal mood and affect; fluent speech; no focal deficits; sensation grossly intact in the LEs b/l Results & Data Results & Data Vital Signs (Past 12 Hours) Vital Signs Temp Pulse Pulse Resp BP BP Pulse Ox 09/16/23 14:51 79 09/16/23 14:05 77 16 125/64 98 09/16/23 11:59 37.1 C 80 18 121/60 96 O2 Del Method 09/16/23 14:51 09/16/23 14:05 Room Air 09/16/23 11:59 Room Air Supervising Physician Co-Signing Physician Notes Patient seen and examined, chart reviewed, case discussed with Josh Dawn PA-C and I agree with the assessment and plan as above except as otherwise noted Labs and images reviewed Ground-level fall 09/13. CT with angulated displaced transcervical left femoral fracture. Mechanical without syncope/presyncope. No head strike. Does have a history of CAD/CHF with nonischemic cardiomyopathy EF 15% recently improved to 20-25% on echo 1 week ago, CABG x 4, paroxysmal A-fib on anticoagulation. EKG on admission is sinus with left bundle, comparison EKG also with left bundle. On admission his bilateral pleural effusions previously noted have resolved, he has some bilateral pitting edema in his lower extremities. Patient thinks he took his Eliquis yesterday, most likely in the evening but is not sure as his daughter manages his medications. As due to his multivessel CAD, cardiomyopathy, and heart failure place him at increased risk of complications and he is at increased risk of harm from bleeding/blood loss anemia recommend waiting at least 48 hours after last Eliquis dose prior to proceeding with surgery. He is at least an RCRI class III, 10% risk. Discussed with Ortho PA and patient at the bedside. He has some pitting edema in his lower extremities, lungs sound clear and chest ray shows resolution of prior pleural effusions. He is near euvolemic to slightly volume up, will continue his Lasix however at time of admission patient is near optimized. Otherwise agree with above. PG Care Time/CCT Total # of Minutes Spent Total Time Spent with Patient: Total time spent is greater than 50% in coordination of care (as documented) at patient's floor/unit and/or counseling patient: Coding [place] [address] INT INP/OBS CARE 2/55MIN Patient Type Established History Comprehensive Exam Comprehensive Medical Decision Making Moderate Complexity Diagnoses Fracture of proximal end of left femur S72.002A PAF (paroxysmal atrial fibrillation) I48.0 Acute CHF I50.9
--- NOTE | 2023-09-16 15:43 | Electrocardiogram Report ---
Test Reason : Blood Pressure : / mmHG Vent. Rate : 078 BPM Atrial Rate : 078 BPM P-R Int : 176 ms QRS Dur : 134 ms QT Int : 438 ms P-R-T Axes : -06 -53 134 degrees QTc Int : 499 ms Sinus rhythm with occasional Premature ventricular complexes and Premature atrial complexes Left axis deviation Left bundle branch block Abnormal ECG When compared with ECG of 29-MAY-2023 08:49, Premature ventricular complexes are now Present T wave inversion more evident in Lateral leads QT has lengthened Confirmed by Julio C Lockwood ([id number]) on 09/16/2023 3:42:48 PM Referred By: Julio C Lehman Confirmed By:Julio C Lockwood
[2023-09-16 16:01] LABS: INR 1.2 (0.9-1.1); Partial Thromboplastin Ratio 1.1; Partial Thromboplastin Time 30 Seconds (21-31); Prothrombin Time 12.5 Seconds (9.0-12.0)
--- NOTE | 2023-09-16 16:38 | Orthopedic Consultation ---
Date of Consultation September 16, 2023 Assessment & Plan (1) Fracture of proximal end of left femur: The patient was evaluated in room B4. He was made aware of today's findings as well as the risks associated with surgery. Discussion with the hospitalist team was also done at patient bedside. He has a poor ejection fraction and is currently on Eliquis, with his last known dose last evening. He will require 48 hours off of his Eliquis before proceeding with surgery. He may eat this evening and tomorrow. N.p.o. after midnight on Tuesday night. Anticipate surgical intervention for a cemented hip hemiarthroplasty on Tuesday. He will need placement after surgery, given that he lives alone. Continue nonweightbearing status and bedrest. [place] SCDs for DVT prophylaxis. Supervising Physician Co-Signing Physician Notes I saw and examined the patient, reviewed his medical chart and images, and formulated the plan constituting the substantive portion of the visit. Agree with above note. Admit to internal medicine. Cemented lisbeth on Tuesday. History of Present Illness Reason for Consultation: Left hip fracture Attending Physician: Billy Rojo MD History of Present Illness This 83-year-old male presents to the ED today, for evaluation of left hip pain that has been ongoing since Tuesday. The patient states he fell in the [employer] parking lot at that time, and landed on the left hip. He had immediate onset of pain in the hip. He thought it was a normal bruising would go away in a few days. It has not improved. He has been ambulatory on the hip, but states it takes him a long time to get anywhere. It may take him 5 minutes to move from room to room in his home. No prior history of hip fracture. He denies striking his head. There was no loss of consciousness. He denies any nausea or vomiting. No chest pain, increased shortness of breath, or abdominal pain. No numbness or tingling. No other complaints. Allergies Allergy/AdvReac Type Severity Reaction Status Date / Time No Known Allergies Allergy Unverified 09/16/23 10:32 Home Medications Medication Instructions Recorded Confirmed Type apixaban 5 mg tablet (Eliquis) 5 mg PO BID #180 tabs 07/29/23 09/16/23 Rx furosemide 80 mg tablet 80 mg PO DAILY 90 days #90 tabs 07/29/23 09/16/23 Rx metoprolol succinate 50 mg 50 mg PO BID #180 tabs 07/29/23 09/16/23 Rx tablet,extended release 24 hr potassium chloride 10 mEq 10 meq PO DAILY #90 caps 07/29/23 09/16/23 Rx capsule,extended release sacubitril 24 mg-valsartan 26 mg 1 tab PO BID #180 tabs 07/29/23 09/16/23 Rx tablet (Entresto) spironolactone 25 mg tablet 12.5 mg (1/2 x 25 mg) PO DAILY #45 07/29/23 09/16/23 Rx tabs atorvastatin 80 mg tablet 80 mg PO QPM #90 tabs 08/01/23 09/16/23 Rx levothyroxine 25 mcg tablet 25 mcg PO .daily in the AM #90 tabs 08/31/23 09/16/23 Rx (Synthroid) quetiapine 25 mg tablet 25 mg PO ONCE HS #90 tabs 08/31/23 09/16/23 Rx Patient History Medical History (Updated 09/16/23 @ 16:33 by Calvin Ramos PA-C) PAF (paroxysmal atrial fibrillation) Chronic systolic (congestive) heart failure Nonischemic cardiomyopathy Diverticulosis of colon Adenomatous polyp of colon Wound infection Syncope Open dislocation of right thumb Laceration of right hand Head injury Surgical History History of coronary artery bypass graft Hx of CABG H/O oral surgery Family History Mother Hypertension Dementia Hyperlipidemia Sister Hypertension Breast cancer Valvular heart disease Coronary heart disease Unknown Hyperlipidemia Grandfather Acute myocardial infarction Denies family history of Colon cancer Ovarian cancer Prostate cancer Myocardial infarction Social History Smoking Status: Former smoker Tobacco Type: Cigarettes Second Hand Exposure: Yes; Do You Dip or Chew Tobacco: No; Hx Alcohol Use: Yes Alcohol type: beer Hx Substance Use: No Preferred Language: Italian Communication Ability: Effective Visual Impairment: Partially Limited Hearing Ability: Normal Beliefs That Will Affect Care: None marital status: / marital status details: about 2.5 years ago Current Living Situation: Alone current occupational status: retired How many Children do You have: 3 How many Children do You have Comment: 3 step children Feels Safe at Home: Yes Childhood Exposure to Second-Hand Smoke: No Diet: regular during the past year weight has: remained stable Dental Care, Regularly: Yes Physical Activity Frequency: 3-4 Times per Week Seatbelt Use: always Sunscreen Use: Yes Assistive Devices: Walker Review of Systems Review of Systems: All systems reviewed & are unremarkable except as noted in HPI & below A total of 10 systems were reviewed. Physical Exam Physical Exam: General: Frail, elderly white male, in no acute distress. Laying in bed. Alert. He is not sure what hospital he is in. He knows that it is Tuesday. HEENT: Normocephalic atraumatic. Eyes PERRLA, EOMI. No conjunctiva or scleral injection. Nares patent bilaterally without turbinate enlargement. No significant drainage. No epistaxis. Oropharynx without erythema or exudate. Uvula midline, oral mucosa moist. No lesions present. Upper denture plate is noted. Heart: Irregularly irregular. No gallops or rubs. Peripheral pulses are 2+. Lungs: Lungs are clear to auscultation. No crackles rhonchi or wheezing. Good air movement. The patient is able to take a deep breath. Abdomen: Abdomen was inspected, auscultated, and palpated. Bowel sounds present x 4. Soft, nontender to palpation. No hepato-splenomegaly. No masses noted. No CVA tenderness. Musculoskeletal: Gross motor function of the upper extremities is intact and unremarkable. Motor function of the right leg is intact. He has no discomfort with logrolling of the hip or passive flexion extension of the hip. No pain with motion of the knee or ankle. The left leg is not shortened or rotated. He has exquisite discomfort with any attempted motion of the hip. There is intact motor function to the ankle and toes on the left leg. Neurologic: Gross sensation is intact across the upper and lower extremities by soft touch. Results & Data Vital Signs (Past 12 Hours) Vital Signs Temp Pulse Pulse Resp BP BP Pulse Ox 09/16/23 16:00 77 18 129/72 94 09/16/23 14:51 79 09/16/23 14:05 77 16 125/64 98 09/16/23 11:59 37.1 C 80 18 121/60 96 O2 Del Method 09/16/23 16:00 Room Air 09/16/23 14:51 09/16/23 14:05 Room Air 09/16/23 11:59 Room Air Laboratory Results CBC obtained today shows a white count of 7.16. H&H of 12.6 and 35.6. Platelets normal at 176,000. BUN elevated at 36. Creatinine normal at 0.96. INR is 1.2. AST and ALT are normal. Diagnostic Findings Radiographic imaging obtained today of the hip and pelvis is positive for a left hip fracture with subcapital impaction.
--- NOTE | 2023-09-16 16:46 | Emergency Department Note ---
Impression & Plan Closed left hip fracture ED Provider Note NAME: ELOISE ELKINS AGE: 83 SEX: Male INFORMANT: Patient ED PROVIDER(S): Tripp Bowser MD CHIEF COMPLAINT: Left hip pain PLAN: Disposition: Admitted Outpatient prescription management: none Referral: None MEDICAL DECISION MAKING: Patient was admitted to left hip pain. CT imaging was performed and he was found to have a femoral neck fracture. His CBC and chemistry panels were unremarkable. ECG showed a sinus rhythm with left bundle branch block. He had some more pronounced lateral T wave inversions however he does not have any chest symptoms at this time. Patient denied any other injury from the fall. He did not strike his head. He has no headache. Patient will need further management in the hospital.. Dilaudid was ordered. Discussed with nursing. Patient had a consultation placed with [facility] orthopedics, Dr. Whyte. They will consult on the patient for hip fracture management. Consultation was made with Dr. Billy Rojo of the [facility] service. Patient was evaluated in the ER for further management. Care/management discussed with: outpatient case manager Level of care consideration(s): After review of the information above and other included data, I feel the patient requires escalation of care to admission Triage Nursing notes: reviewed and agree them. Vital Signs: reviewed and remarkable for hypertension Additional History obtained from: none Chronic Medical/Social Conditions affecting care: none Prior/ Outside/ External records reviewed: none Differential Diagnosis: Fracture, dislocation, neurovascular compromise, compartment syndrome, soft tissue injury, as well as other pathologies. Diagnostics, independently interpreted by me: ECG: Twelve-lead ECG was sinus rhythm with PVCs and left axis deviation with left bundle branch block at 78 bpm. There is lateral T wave inversions that are more pronounced than 29 May 2023. Cardiac Monitoring: Cardiac monitoring ordered by me: The patient was placed on continuous cardiac monitoring and observed. It revealed a normal sinus rhythm at 77 beats per minute without ectopy or evidence of dysrhythmia. Medical decision rules: none Imaging studies: CT imaging of the left hip reveals an impacted femoral neck fracture. I refer you to the EMR for further details. HPI: 83 year old Male arrives for evaluation of left hip pain. Patient notes he fell 2 days ago while out shopping. He lost his balance and fell onto the left hip. Patient denies any other injury. He did not strike his head. He rated his pain as a 1 out of 10 but was having progressive more difficulty walking. Patient was referred to the emergency room today after seeing his primary and was unable to ambulate. Pt denies LOC, headache, visual changes, neck pain, chest pain, breathing difficulties, nausea, vomiting, abdominal pain, back pain, other extremity pain, numbness, weakness, open wounds, active bleeding, or other complaints.. PAST MEDICAL HISTORY: See Below, anticoagulated PAST SURGICAL HISTORY: See Below, denies orthopedic surgery SOCIAL HISTORY: See Below, retired HOME MEDICATIONS: See Below ALLERGIES: See Below VITALS: See Below PHYSICAL EXAMINATION: GENERAL: Awake, alert, well-appearing, in no distress HENT: Normocephalic, atraumatic. Oropharynx unremarkable. EYES: Normal conjunctiva. Sclera non-icteric. PERRLA. NECK: Inspection normal. Non-tender. Supple. No nuchal rigidity. FROM. No masses. RESPIRATORY: Clear to auscultation. No wheezes. No rales. Normal respiratory effort. CARDIAC: Normal rate. Normal rhythm. No murmurs. No rubs. Extremities warm and well perfused. Pulses equal. No JVD. GI: Soft, non-distended. No tenderness to palpation. No rebound or guarding. No masses. RECTAL: Deferred. MUSCULOSKELETAL: There is mild tenderness to palpation of the left hip around the greater trochanter. Some discomfort with forward flexion. Internal and external rotation relatively well-preserved however there is some discomfort elicited. Chest examination reveals no tenderness. The back is symmetrical on inspection without obvious abnormality. There is no CVA tenderness to palpation. No joint edema. LOWER EXTREMITIES: Calves are non-tender. 1+ edema on the right and 2+ edema on the left. Chronic venous discoloration. NEURO: Normal sensorium. No sensory or motor deficits noted. Speech normal. SKIN: No rash or jaundice noted. PROCEDURES: none CRITICAL CARE: none OBSERVATION NOTE: none Past Med/Surg History Problem List (Updated 09/16/23 @ 16:45 by Tripp Bowser MD) Closed left hip fracture (Acute) Fracture of proximal end of left femur Alcohol-induced persisting dementia Alcohol abuse Atrial fibrillation Cardiomyopathy Acidosis, lactic (Acute) Elevated LFTs (Acute) Elevated troponin (Acute) Acute CHF (Acute) Elevated TSH Acute HFrEF (heart failure with reduced ejection fraction) Elevated troponin Hypoxia UTI (urinary tract infection) PAD (peripheral artery disease) Claudication Vascular disease Mild cognitive impairment CAD (coronary atherosclerotic disease) (Acute) Gout, joint (Acute) Hypercholesterolemia (Acute) Hyperglycemia (Acute) Hypertension (Acute) Pre-diabetes (Acute) Medical History (Updated 09/16/23 @ 16:45 by Tripp Bowser MD) PAF (paroxysmal atrial fibrillation) Chronic systolic (congestive) heart failure Nonischemic cardiomyopathy Diverticulosis of colon Adenomatous polyp of colon Wound infection Syncope Open dislocation of right thumb Laceration of right hand Head injury Surgical History History of coronary artery bypass graft Hx of CABG H/O oral surgery Family History Mother Hypertension Dementia Hyperlipidemia Sister Hypertension Breast cancer Valvular heart disease Coronary heart disease Unknown Hyperlipidemia Grandfather Acute myocardial infarction Denies family history of Colon cancer Ovarian cancer Prostate cancer Myocardial infarction Social History Smoking Status: Former smoker Tobacco Type: Cigarettes Second Hand Exposure: Yes; Do You Dip or Chew Tobacco: No; Hx Alcohol Use: Yes Alcohol type: beer Hx Substance Use: No Preferred Language: Turkmen Communication Ability: Effective Visual Impairment: Partially Limited Hearing Ability: Normal Beliefs That Will Affect Care: None marital status: / marital status details: about 2.5 years ago Current Living Situation: Alone current occupational status: retired How many Children do You have: 3 How many Children do You have Comment: 3 step children Feels Safe at Home: Yes Childhood Exposure to Second-Hand Smoke: No Diet: regular during the past year weight has: remained stable Dental Care, Regularly: Yes Physical Activity Frequency: 3-4 Times per Week Seatbelt Use: always Sunscreen Use: Yes Assistive Devices: Walker Allergies Allergies Allergy/AdvReac Type Severity Reaction Status Date / Time No Known Allergies Allergy Unverified 09/16/23 10:32 Home Meds Previous Rx's Medication Instructions Recorded apixaban 5 mg tablet (Eliquis) 5 mg PO BID #180 tabs 07/29/23 furosemide 80 mg tablet 80 mg PO DAILY 90 days #90 tabs 07/29/23 metoprolol succinate 50 mg 50 mg PO BID #180 tabs 07/29/23 tablet,extended release 24 hr potassium chloride 10 mEq 10 meq PO DAILY #90 caps 07/29/23 capsule,extended release sacubitril 24 mg-valsartan 26 mg 1 tab PO BID #180 tabs 07/29/23 tablet (Entresto) spironolactone 25 mg tablet 12.5 mg (1/2 x 25 mg) PO DAILY #45 07/29/23 tabs atorvastatin 80 mg tablet 80 mg PO QPM #90 tabs 08/01/23 levothyroxine 25 mcg tablet 25 mcg PO .daily in the AM #90 tabs 08/31/23 (Synthroid) quetiapine 25 mg tablet 25 mg PO ONCE HS #90 tabs 08/31/23 Results & Data (ED) Vital Signs Vital Signs - 24 hr 09/16/23 11:59 09/16/23 14:05 09/16/23 14:51 Temperature 37.1 C Temperature Source Oral Pulse Rate 80 79 Pulse Rate [Finger] 77 Respiratory Rate 18 16 Blood Pressure 121/60 Blood Pressure [Right Arm] 125/64 Blood Pressure Mean 80 Blood Pressure Mean [Right Arm] 84 Pulse Oximetry 96 98 Oxygen Delivery Method Room Air Room Air Sepsis Recent Fever Within 48 Hours No Sepsis New/Unexplained Change in Mental Status No Sepsis Action Taken by Nursing No Action Required 09/16/23 16:00 Temperature Temperature Source Pulse Rate Pulse Rate [Finger] 77 Respiratory Rate 18 Blood Pressure Blood Pressure [Right Arm] 129/72 Blood Pressure Mean Blood Pressure Mean [Right Arm] 91 Pulse Oximetry 94 Oxygen Delivery Method Room Air Sepsis Recent Fever Within 48 Hours Sepsis New/Unexplained Change in Mental Status Sepsis Action Taken by Nursing Laboratory Data 09/16/23 14:29 09/16/23 14:29 Lab Results 09/16/23 Range/Units 14:29 WBC 7.17 (4.8-10.8) K/ul RBC 4.02 L (4.70-6.10) M/uL Hgb 12.6 L (14.0-18.0) g/dl Hct 35.6 L (42.0-52.0) % MCV 88.6 (80.0-100.0) fL MCH 31.3 (25.0-34.0) pg MCHC 35.4 (32.0-36.0) g/dL RDW Std Deviation 47.1 H (36.4-46.3) fL RDW Coeff of Rolan 14.6 H (11.5-14.5) % Plt Count 178 (130-400) K/uL MPV 11.1 (9.4-12.4) fL Immature Gran % (Auto) 0.3 % Neut % (Auto) 72.6 % Lymph % (Auto) 17.6 % [place] % (Auto) 8.1 % Eos % (Auto) 1.0 % Baso % (Auto) 0.4 % Neut # (Auto) 5.21 (1.40-6.50) K/uL Lymph # (Auto) 1.26 (1.20-3.40) K/uL [place] # (Auto) 0.58 (0.11-0.59) K/uL Eos # (Auto) 0.07 (0.00-0.50) K/uL Baso # (Auto) 0.03 (0.00-0.20) K/uL Immature Gran # (Auto) 0.02 (0.01-0.20) K/uL PT 12.5 H (9.0-12.0) Seconds INR 1.2 H (0.9-1.1) APTT 30 (21-31) Seconds PTT Ratio 1.1 Sodium 136 (136-145) mmol/L Potassium 4.2 (3.5-5.1) mmol/L Chloride 103 (98-107) mmol/L Carbon Dioxide 24 (21-32) mmol/L Anion Gap 9 (3-11) BUN 36 H (6-23) mg/dl Creatinine 0.96 (0.6-1.4) mg/dl Est Cr Clr Drug Dosing 54.4 ml/min Est GFR ( Amer) 83.2 ml/min Est GFR (Non-Af Amer) 71.8 ml/min BUN/Creatinine Ratio 37.5 H (10-20) Glucose 97 (70-99(Fasting)) mg/dl Calcium 9.5 (8.6-10.3) mg/dl Total Bilirubin 2.1 H (0.2-1.0) mg/dl AST 19 (13-39) U/L ALT 12 (7-52) U/L Alkaline Phosphatase 60 (34-104) U/L Total Protein 6.8 (6.0-8.3) gm/dl Albumin 4.0 (3.4-5.0) gm/dl Globulin 2.8 (2.5-4.0) gm/dl Albumin/Globulin Ratio 1.4 (0.9-2) Administered Medications Sodium Chloride (Nss) 1,000 mls @ 75 mls/hr IV .[id number] ALEX Stop: 09/17/23 03:34 Last Admin: 09/16/23 14:45 Dose: 75 mls/hr Documented By: ROYAL Imaging Data Radiologist's Impression: Hip CT 09/16/23 12:43 CT hip LT wo con HISTORY: 83 years-old Male fall, unable to ambulate acute pain left hip status post fall COMPARISON: None TECHNIQUE: Multiple axial CT images of the left hip were obtained without IV contrast. A dose lowering technique was used consistent with the principals of MARY. FINDINGS: Distended urinary bladder. Prostatomegaly. Arterial calcifications. Subcutaneous and deep tissue edema surrounds the left hip. Trace left hip joint effusion. Demineralized appearance of the bones. Moderate left hip osteoarthritis. There is an acute comminuted and impacted transcervical left femoral fracture demonstrating apex anterolateral angulation with displacement of approximately 1.5 cm. No dislocation, additional acute fracture identified. IMPRESSION: Acute comminuted, impacted, mildly angulated and slightly displaced transcervical left femoral fracture. ACT 112: Negative or not required by law. The above report was generated using voice recognition software. It may contain grammatical, syntax or spelling errors. Electronically signed by: Lowell Amato M.D. 09/16/2023 1:54 PM Chest X-Ray 09/16/23 14:16 XR chest 1V portable CLINICAL HISTORY: hip fracture TECHNIQUE: Single frontal radiograph of the chest was obtained. Comparison: Comparison is made to chest radiograph 06/03/2023 FINDINGS: Median sternotomy wires are unchanged. Cardiomegaly is noted. The aortic arch is calcified. The lungs are clear. No evidence of pleural effusion or pneumothorax. IMPRESSION: Bilateral pleural effusions have resolved from prior exam. Stable cardiomegaly. ACT 112: Negative or not required by law. Electronically signed by: Gianfranco De Guzman M.D. 09/16/2023 2:56 PM Hip/Pelvis X-Ray 09/16/23 14:29 SINGLE VIEW PELVIS; 2 VIEWS LEFT HIP CLINICAL HISTORY: Left hip fracture. FINDINGS: An AP view of the pelvis with AP and crosstable lateral views of the left hip are correlated with CT scan of the left hip performed the same day 09/16/2023. The skeletal structures are osteopenic. Again seen is an acute impacted subcapital fracture of the left proximal femur. There is mild displacement of fragments. Overlying soft tissue edema is noted. No additional acute fracture is seen involving the right hip or the bony pelvis. Mild arthritic change and joint space narrowing is seen in the hips. Degenerative sclerosis is noted in the sacroiliac joints. There is advanced atherosclerotic calcification of the femoral arteries. Phleboliths are seen in the pelvis. IMPRESSION: Unchanged appearance of an impacted subcapital fracture of the left proximal femur as above. Electronically signed by: Brian Taylor M.D. 09/16/2023 3:14 PM Discharge Plan Visit Data Chief Complaint: Hip Pain Stated Complaint: HIP PAIN ED Provider: Tripp Bowser Discharge Problem: Closed left hip fracture Forms Stand Alone Forms: [facility] Prescriptions Prescriptions: No Action Eliquis 5 mg tablet 5 mg PO BID Qty: 180 3RF furosemide 80 mg tablet 80 mg PO DAILY 90 Days Qty: 90 3RF metoprolol succinate 50 mg tablet extended release 24 hr 50 mg PO BID Qty: 180 3RF potassium chloride 10 mEq capsule, extended release 10 meq PO DAILY Qty: 90 3RF Entresto 24-26 mg tablet 1 tab PO BID Qty: 180 3RF spironolactone 25 mg tablet 12.5 mg PO DAILY Qty: 45 3RF atorvastatin 80 mg tablet 80 mg PO QPM Qty: 90 3RF levothyroxine [Synthroid] 25 mcg tablet 25 mcg PO .daily in the AM Qty: 90 3RF Rx Instructions: once daily in the morning quetiapine 25 mg tablet 25 mg PO ONCE HS Qty: 90 3RF Rx Instructions: once at bed time Referrals Referrals: Julio C Lehman MD [Primary Care Provider] -
[2023-09-16] MEDS ORDERED: ACETAMINOPHEN 325 MG TAB PO PRN (19:09)
[2023-09-16] MEDS ORDERED: MELATONIN 3 MG TAB PO PRN (19:09)
[2023-09-16] MEDS ORDERED: HYDROmorphone INJ 1 MG/ML SYRINGE IV PRN (19:09)
[2023-09-16] MEDS ORDERED: LIDOCAINE 5% 1 PATCH TD PRN (19:09)
[2023-09-16] MEDS: ATORVASTATIN 40 MG TAB PO SCH (21:08)
[2023-09-16] MEDS: VALSARTAN/SACUBITRIL 26/24MG TAB PO SCH (21:09)
[2023-09-16] MEDS: METOPROLOL SUCC 50MG EXT REL TAB PO SCH (21:54)
[2023-09-16] MEDS: QUEtiapine FUMARATE 25 MG TABLET PO SCH (22:43)
[2023-09-16 23:05] LABS: Appearance Urine Clear (Clear); Bilirubin Urine Negative (Negative); Blood Urine Negative (Negative); Color Urine Dark Yellow; Glucose Urine UA Negative (Negative); Ketones Urine 1+ (Negative); Leukocyte Esterase Urine Negative (Negative); Nitrite Urine Negative (Negative); Protein Urine Negative (Negative); Specific Gravity Urine 1.023 (1.000-1.030); Urobilinogen Urine Negative (Negative)
[2023-09-17] MEDS: LEVOTHYROXINE SODIUM 25 MCG TABLET PO SCH (06:20)
[2023-09-17 06:46] LABS: Basophils # (auto) 0.02 K/uL (0.00-0.20); Basophils % (auto) 0.3 %; Eosinophils # (auto) 0.39 K/uL (0.00-0.50); Eosinophils % (auto) 5.3 %; Hematocrit (blood only) 32.8 % (42.0-52.0); Hemoglobin 11.3 g/dl (14.0-18.0); Immature Granulocytes # (auto) 0.02 K/uL (0.01-0.20); Immature Granulocytes % (auto) 0.3 %; Lymphocytes % (auto) 18.9 %; Mean Corpuscular Hemoglobin 30.1 pg (25.0-34.0); Mean Corpuscular Hgb Conc 34.5 g/dL (32.0-36.0); Mean Corpuscular Volume 87.5 fL (80.0-100.0); Mean Platelet Volume 10.8 fL (9.4-12.4); Monocytes % (auto) 6.7 %; Neutrophils # (auto) 5.09 K/uL (1.40-6.50); Neutrophils % (auto) 68.5 %; Platelet Count 162 K/uL (130-400); RDW Coefficient of Variation 14.5 % (11.5-14.5); RDW Standard Deviation 46.8 fL (36.4-46.3); Red Blood Count 3.75 M/uL (4.70-6.10); White Blood Count 7.42 K/ul (4.8-10.8)
[2023-09-17 07:15] LABS: BUN Creatinine Ratio 38.5 (10-20); Calcium 8.8 mg/dl (8.6-10.3); Est GFR (African American) 95.4 ml/min; Est GFR (Non-African American) 82.3 ml/min; Potassium 3.6 mmol/L (3.5-5.1)
[2023-09-17] MEDS: FUROSEMIDE 80 MG TAB PO SCH (08:57)
[2023-09-17] MEDS: POTASSIUM CHLORIDE 10 MEQ TABCR PO SCH (08:58)
[2023-09-17] MEDS: SPIRONOLACTONE 12.5 MG TAB PO SCH (08:58)
--- NOTE | 2023-09-17 10:28 | Orthopedic Progress Note ---
Date of Service September 17, 2023 Assessment & Plan (1) Closed left hip fracture: Plan: The patient was educated regarding today's findings. Conservative care measures were discussed. Anticipate surgical intervention tomorrow morning for a cemented hemiarthroplasty. The patient is aware. He will be n.p.o. after midnight. Continue nonweightbearing status with bedrest. Pain control with IV and oral medication as needed. Admission and Anticipated Discharge Date Admission Date: September 16, 2023 Subjective This 83-year-old male is seen today in his room. He has a known left subcapital hip fracture. The patient states he has no pain. He states he forgot that his hip was broken and was attempting to get out of bed earlier today to go to the bathroom. The nurses had to remind him that he had a hip fracture and was to be on bedrest. He has no additional complaints. He is wondering when the surgery will be completed and whether will be done in this building. He denies any chest pain, shortness of breath, nausea, vomiting, or abdominal pain. Physical Exam Physical Exam: General: Well-developed, elderly male, in no acute distress. Laying in bed. Alert and oriented. Conversive. Occasional mild confusion. Skin: Warm and dry with good turgor. No rashes. No ecchymosis or erythema. Musculoskeletal: The patient has no discomfort with active motion of the ankle and toes. Slight logrolling of the hip is tolerated but does generate some hip pain. Flexion was not attempted. Neurologic: Gross sensation is intact across the left leg by soft touch. Results & Data Vital Signs (Past 12 Hours) Vital Signs Temp Pulse Resp BP Pulse Ox O2 Del Method 09/17/23 08:55 71 115/58 L 09/17/23 07:16 36.4 C L 73 16 129/60 93 Room Air Laboratory Results CBC obtained this morning shows a white count of 7.42. H&H of 11.3 and 32.8. Platelets of 162,000. Electrolytes are unremarkable. Blood glucose this morning was 83.
--- NOTE | 2023-09-17 10:29 | Hospitalist Progress Note ---
Date of Service September 17, 2023 Assessment & Plan (1) Fracture of proximal end of left femur: Plan: Ground-level fall onto concrete on 09/12 Worsening left hip pain since Hip CT revealed acute comminuted, impacted, mildly angulated and displaced transcervical left femoral fracture Orthopedics consulted Hold Eliquis Plan is to go to the OR on Sunday 09/17; NPO at midnight set for 09/17 PT/OT evaluations appreciated; left leg nonweightbearing Case management following - will likely need rehab (2) PAF (paroxysmal atrial fibrillation): Plan: Hold Eliquis Continue metoprolol (3) Acute CHF: Plan: +1 pitting edema in lower extremities bilaterally, but overall weight is down Continue Lasix, Entresto, spironolactone, and K supplementation - hold entresto and spironlactone preoperatively Last echo revealed LVEF at 20-25% Plan Disposition: continued inpatient stay, OR tomorrow VTE PPx: Hold Eliquis; teds for now Admission and Anticipated Discharge Date Admission Date: September 16, 2023 Supervising Physician Co-Signing Physician Notes Attending Attestation - Chart reviewed, care plan d/w CLEOPATRA Gregg. I agree w/ the galindo components of her documentation. Willie Brown MD Subjective Patient seen in room 316, resting in bed. No acute complaints. Denies pain in hi p. reports mechanical fall Episode of confusion last night - removed michelet hose and IV - will replace IV today in preparation for tomorrow. Aware he will be NPO Review of Systems Review of Systems: All systems reviewed & are unremarkable except as noted in Subjective Physical Exam Physical Exam: General: NAD, VS as above Resp: normal respiratory effort, lungs clear to auscultation CV: RRR, no murmur, Abd: soft, non tender, no hepatosplenomegaly Extremities: able to wiggle toes bilaterally Results & Data Results & Data Vital Signs (Past 12 Hours) Vital Signs Temp Pulse Resp BP Pulse Ox O2 Del Method 09/17/23 08:55 71 115/58 L 09/17/23 07:16 36.4 C L 73 16 129/60 93 Room Air Laboratory Results CBC and chemistry reviewed PG Care Time/CCT Total # of Minutes Spent Total Time Spent with Patient: Total time spent is greater than 50% in coordination of care (as documented) at patient's floor/unit and/or counseling patient: Coding Level of Care Code 55372 SUB INP/OBS CARE MIN Diagnoses Fracture of proximal end of left femur S72.002A PAF (paroxysmal atrial fibrillation) I48.0 Acute CHF I50.9
--- NOTE | 2023-09-17 10:50 | Anesthesiology Consultation ---
Date of Service September 17, 2023 Assessment & Plan (1) Encounter for pre-operative examination: Chart Review Chart Review: Acceptable Risk for Surgery History Surgery Operation Date: 09/18/23 07:30 Proposed Procedures p Left Hip Cemented Hemiarthroplasty - Billy Beard MD Height/Weight Height: 5 ft 8 in Weight: 70.7 kg Allergies Allergy/AdvReac Type Severity Reaction Status Date / Time No Known Allergies Allergy Unverified 09/16/23 10:32 Medications Home Medications Medication Instructions Recorded Confirmed Last Taken apixaban 5 mg tablet (Eliquis) 5 mg PO BID #180 tabs 07/29/23 09/16/23 Unknown furosemide 80 mg tablet 80 mg PO DAILY 90 days #90 tabs 07/29/23 09/16/23 Unknown metoprolol succinate 50 mg 50 mg PO BID #180 tabs 07/29/23 09/16/23 Unknown tablet,extended release 24 hr potassium chloride 10 mEq 10 meq PO DAILY #90 caps 07/29/23 09/16/23 Unknown capsule,extended release sacubitril 24 mg-valsartan 26 mg 1 tab PO BID #180 tabs 07/29/23 09/16/23 Unknown tablet (Entresto) spironolactone 25 mg tablet 12.5 mg (1/2 x 25 mg) PO DAILY #45 07/29/23 09/16/23 Unknown tabs atorvastatin 80 mg tablet 80 mg PO QPM #90 tabs 08/01/23 09/16/23 Unknown levothyroxine 25 mcg tablet 25 mcg PO .daily in the AM #90 tabs 08/31/23 09/16/23 Unknown (Synthroid) quetiapine 25 mg tablet 25 mg PO ONCE HS #90 tabs 08/31/23 09/16/23 Unknown Active Medications Generic Name Dose Route Start Last Admin Trade Name Freq PRN Reason Stop Dose Admin Atorvastatin Calcium 80 mg 09/16/23 21:00 09/16/23 21:08 Atorvastatin 40 Mg Tab PO 10/16/23 20:59 80 mg QPM ALEX Administration Furosemide 80 mg 09/17/23 09:00 09/17/23 08:57 Furosemide 80 Mg Tab PO 10/17/23 08:59 80 mg DAILY ALEX Administration Levothyroxine Sodium 25 mcg 09/17/23 06:30 09/17/23 06:20 Levothyroxine Sodium 25 Mcg Tablet PO 10/17/23 06:29 25 mcg DAILYBB ALEX Administration Metoprolol Succinate 50 mg 09/16/23 21:00 09/17/23 08:57 Metoprolol Succ 50mg Ext Rel Tab PO 10/16/23 20:59 50 mg BID ALEX Administration Miscellaneous 1 each 09/17/23 00:00 09/17/23 08:57 Pending Order: Lidocaine Patch Removal N/A 10/17/23 00:00 Not Given QS ALEX Potassium Chloride 10 meq 09/17/23 09:00 09/17/23 08:58 Potassium Chloride 10 Meq Tabcr PO 10/17/23 08:59 10 meq DAILY ALEX Administration Quetiapine Fumarate 25 mg 09/16/23 21:00 09/16/23 22:43 Quetiapine Fumarate 25 Mg Tablet PO 10/16/23 20:59 25 mg HS ALEX Administration Sacubitril/Valsartan 1 tab 09/16/23 21:00 09/17/23 08:57 Valsartan/Sacubitril 26/24mg Tab PO 10/16/23 20:59 1 tab BID ALEX Administration Spironolactone 12.5 mg 09/17/23 09:00 09/17/23 08:58 Spironolactone 12.5 Mg Tab PO 10/17/23 08:59 12.5 mg DAILY ALEX Administration Past Medical History Medical History (Updated 09/17/23 @ 10:50 by Perico Childress MD) Alcohol abuse PAD (peripheral artery disease) Gout, joint PAF (paroxysmal atrial fibrillation) Chronic systolic (congestive) heart failure Nonischemic cardiomyopathy EF 20-25% on 09/09/23 echo Diverticulosis of colon Adenomatous polyp of colon Wound infection Syncope Open dislocation of right thumb Laceration of right hand Head injury Past Family History Family History Mother Hypertension Dementia Hyperlipidemia Sister Hypertension Breast cancer Valvular heart disease Coronary heart disease Unknown Hyperlipidemia Grandfather Acute myocardial infarction Denies family history of Colon cancer Ovarian cancer Prostate cancer Myocardial infarction Past Surgical History Surgical History History of coronary artery bypass graft Hx of CABG H/O oral surgery Social History Smoking Status: Former smoker Do You Dip or Chew Tobacco: No Hx Alcohol Use: Yes Alcohol type: beer alcohol intake frequency: a few times a month Hx Substance Use: No substance use type: does not use Physical Exam Vital Signs Last Vital Signs Temp 36.4 C L 09/17/23 07:16 Pulse 71 09/17/23 08:55 Resp 16 09/17/23 07:16 BP 115/58 L 09/17/23 08:55 Pulse Ox 93 09/17/23 07:16 O2 Del Method Room Air 09/17/23 07:16 Testing Laboratory Results 09/17/23 05:41 09/17/23 05:41 PT 12.5 Seconds (9.0-12.0) H 09/16/23 14:29 INR 1.2 (0.9-1.1) H 09/16/23 14:29 APTT 30 Seconds (21-31) 09/16/23 14:29 Urine Color Dark Yellow 09/16/23 22:45 Urine Appearance Clear (Clear) 09/16/23 22:45 Urine pH 5.0 (4.5-7.5) 09/16/23 22:45 Ur Specific [place] 1.023 (1.000-1.030) 09/16/23 22:45 Urine Protein Negative (Negative) 09/16/23 22:45 Urine Glucose (UA) Negative (Negative) 09/16/23 22:45 Urine Ketones 1+ (Negative) H 09/16/23 22:45 Urine Nitrite Negative (Negative) 09/16/23 22:45 Ur Leukocyte Esterase Negative (Negative) 09/16/23 22:45 Electrocardiogram Date: 09/16/23 Findings: + NSR @ (78) and + LBBB Echocardiogram Date: 09/09/23 EF: 20-25% LV Function: dysfunctional (global hypokinesis) Valvular Disease: + MR (moderate)
[2023-09-18] MEDS: LORazepam 0.5 MG in SYRINGE 0.25 ML IV STA ×2 (02:10→02:49)
[2023-09-18] MEDS ORDERED: Nursing to Pharmacy Communication SCH (07:00)
[2023-09-18 07:55] LABS: BUN Creatinine Ratio 34.2 (10-20); Calcium 8.6 mg/dl (8.6-10.3); Creatinine Clr Calc Pharmacy 66.1 ml/min; Est GFR (African American) 94.9 ml/min; Est GFR (Non-African American) 81.9 ml/min; Potassium 3.7 mmol/L (3.5-5.1)
[2023-09-18 08:01] LABS: Basophils # (auto) 0.03 K/uL (0.00-0.20); Basophils % (auto) 0.5 %; Eosinophils # (auto) 0.35 K/uL (0.00-0.50); Hemoglobin 12.2 g/dl (14.0-18.0); Immature Granulocytes # (auto) 0.01 K/uL (0.01-0.20); Immature Granulocytes % (auto) 0.2 %; Lymphocytes # (auto) 1.71 K/uL (1.20-3.40); Lymphocytes % (auto) 29.2 %; Mean Corpuscular Hgb Conc 33.9 g/dL (32.0-36.0); Mean Corpuscular Volume 88.5 fL (80.0-100.0); Mean Platelet Volume 10.8 fL (9.4-12.4); Monocytes # (auto) 0.49 K/uL (0.11-0.59); Monocytes % (auto) 8.4 %; Neutrophils # (auto) 3.26 K/uL (1.40-6.50); Neutrophils % (auto) 55.7 %; Platelet Count 187 K/uL (130-400); RDW Coefficient of Variation 14.4 % (11.5-14.5); RDW Standard Deviation 46.2 fL (36.4-46.3); Red Blood Count 4.07 M/uL (4.70-6.10); White Blood Count 5.85 K/ul (4.8-10.8)
[2023-09-18] MEDS ORDERED: PROPOFOL IV EMULSION 10 MG/ML 20 ML VIAL IV ONE (09:06)
[2023-09-18] MEDS ORDERED: DEXAMETHASONE SOD INJ 4 MG/ML VIAL ONE (09:06)
[2023-09-18] MEDS ORDERED: ETOMIDATE 2 MG/ML 20 ML VIAL IV ONE (09:06)
[2023-09-18] MEDS ORDERED: DexMEDEtomidine HCL IV 100 MCG/ML VIAL IV ONE (09:06)
[2023-09-18] MEDS ORDERED: LIDOCAINE 2% 2 ML VIAL/AMP(20MG/ML) INFIL ONE (09:06)
[2023-09-18] MEDS ORDERED: fentaNYL citrate PF 100 MCG/2 ML VIAL ONE (09:06)
[2023-09-18] MEDS ORDERED: PHENYLEPHRINE HCL 10 MG/ML VIAL ONE (09:06)
[2023-09-18] MEDS ORDERED: ONDANSETRON INJ 2 MG/ML 2 ML VIAL ONE (09:06)
[2023-09-18] MEDS ORDERED: ATROPINE SULFATE 0.1 MG/ML 10ML SYR IV PRN (09:38)
[2023-09-18] MEDS ORDERED: ONDANSETRON INJ 2 MG/ML 2 ML VIAL IV PRN ×2 (09:38→13:01)
[2023-09-18] MEDS ORDERED: HYDROmorphone INJ 1 MG/ML SYRINGE IV PRN (09:38)
[2023-09-18] MEDS ORDERED: ePHEDrine sulfate 50 MG/ML AMP IV PRN (09:38)
--- NOTE | 2023-09-18 09:54 | Orthopedic Progress Note ---
Date of Service September 18, 2023 Assessment & Plan (1) Closed left hip fracture: Plan: Spoke with the patient and his family this morning. All questions were answered. Informed consent has already been signed. Surgical site is marked. Everyone is in agreement with proceeding with surgery today. He has been n.p.o. since midnight last night. Plan to readmit to internal medicine after surgery. Admission and Anticipated Discharge Date Admission Date: September 16, 2023 Subjective Patient seen and examined on a.m. rounds. He did okay overnight. Continues to have pain in the left hip. Denies numbness or tingling down his leg. He reports he is ready for surgery today. Physical Exam Physical Exam: Alert and oriented x 3. Left lower extremity exam reveals him to be neurovascularly intact. Leg is slightly shortened. Results & Data Vital Signs (Past 12 Hours) Vital Signs Temp Pulse Resp BP Pulse Ox O2 Del Method 09/18/23 09:05 Room Air 09/18/23 08:35 96 Room Air 09/18/23 07:44 36.6 C 68 17 112/55 L 91 Room Air 09/17/23 22:01 93 H 16 117/72 95 Room Air 09/17/23 22:00 Room Air Laboratory Results H&H is 12 and 36 this morning.
[2023-09-18] MEDS ORDERED: TRANEXAMIC ACID / 0.7% NACL 1000MG/100ML BAG IV ONE (10:31)
[2023-09-18] MEDS: ceFAZolin 2000MG 2,000 MG/15 ML SYR IV ONE (10:34)
[2023-09-18] MEDS: TRANEXAMIC ACID 100 MG/ML 10 ML VIAL IV ONE (10:34)
[2023-09-18] MEDS: ROPIVACAINE 0.5% HCL/PF 246 MG, Ketorolac (*for OR use only*) 30 MG, EPINEPHrine 30MG/3... INFIL SCH (11:07)
[2023-09-18] MEDS ORDERED: SUGAMMADEX SODIUM 200 MG/2 ML VIAL IV ONE (11:30)
--- NOTE | 2023-09-18 11:50 | Operative Report ---
Post Operative Report Pre & Post Diagnosis Operation Date: 09/18/23 07:30 Pre-Op Diagnosis: Displaced left femoral neck fracture Post-Op Diagnosis: displaced left femoral neck fracture I identified the patient and participated in the time-out.: Yes Procedure Operation Date: 09/18/23 07:30 Actual Procedures p Left Hip Cemented Hemiarthroplasty(Left) - Billy Beard MD Surgeon Billy Beard MD Community Health Advocate Calvin Ramos PA-C. No resident or fellow was available to assist. Estimated Blood Loss 50 Findings Consistent with Post-Op Diagnosis Specimens Left femoral head Anesthesia Type General Complications none Disposition Disposition: Recovery Room Indications 83-year-old male, fell a few days ago in the parking lot at [facility]. Continue to have pain in his left hip so he presented to the emergency room on Tuesday. He takes Eliquis at baseline and has a medical history significant for cardiomyopathy, A-fib, and CHF with an ejection fraction of 10-20%. I saw him in the emergency room on Tuesday night. I had a long discussion with him about his diagnosis and treatment options. After reviewing all of his options he elected to proceed with surgery. All questions were answered. Informed consent was signed. Description of Procedure Patient was identified on the floor where surgical site was marked. He was brought down to the operating room where general anesthesia was administered on the hospital bed. He was then carefully moved onto the operating room table. He was then carefully moved in the lateral decubitus position. Axillary roll was placed. All bony prominences were padded. Perioperative antibiotics and 1 g of IV tranexamic acid were administered. He was prepped and draped in the usual sterile fashion. Prior to incision a multidisciplinary timeout was called. All in the room were in agreement. We began by making a 10 cm long incision for a posterior approach to the hip. I dissected down through subcutaneous tissues to the level of fascia. The fascia was incised in line with the incision. Charnley was placed. Trochanteric bursa was reflected off the posterior aspect of the femur. Piriformis and short external rotators were taken off of the posterior aspect of the femur along with the capsule in an L-shaped fashion. The leg was internally rotated to expose the femoral neck fracture. A saw was used to freshen up the femoral neck fracture. The acetabulum was then exposed. His femoral head was really moved. The acetabulum was inspected. Cartilage and labrum were intact. The acetabulum was irrigated out and dried. A size 52 trial gave us an excellent suction fit. We then turned our attention to the femur. There was some comminution of the anterior aspect of the femoral neck. Therefore I had to shorten his femoral neck cut just a little bit more. We remained about 8 mm above the lesser trochanter. Box osteotome was used to remove the lateral neck of the femur. Intramedullary guide was used followed by the lateralizing reamer. We then broached him up to a size 5 Lamont stem. There was a little toggle with a size 5 but I was not able to get the size 6 down the canal. Therefore I elected to cement a size 5 standard offset Lamont cemented femoral stem. Femoral canal was irrigated out and dried. The cement was mixed on the back table. Cement was then injected into the femoral canal a nd pressurized with my thumbs. The size 5 standard offset cemented Lamont stem was then inserted and held in approximately 25 degrees of femoral anteversion while the cement cured. Once the cemented completely hardened we then trialed with a +5 offset femoral head. The hip was atraumatically reduced. Leg lengths were symmetric. He was stable in the sleeper position. Shuck test was normal. He was stable in extension and external rotation. At 90 degrees of hip flexion he could be internally rotated 65 degrees easily. I was very happy with the stability exam. Therefore the hip was atraumatically dislocated, and the femoral head trial was removed. The real bipolar femoral head was assembled on the back table. The trunnion was cleaned and dried. We then impacted the 52 mm outer d iameter bipolar with a 28 mm +5 inner femoral head onto the trunnion. The hip was atraumatically reduced. We then began to close. Piriformis and short external rotators were repaired using #2 Vicryl suturesthrough a bone tunnel as well as a split in the abductor tendon and tied over the bone. Fascia was closed with looped #1 PDS. #1 PDS was used for the subcutaneous layer. 2-0 Vicryl was used for the Deep dermal layer. Zipline and Dermabond were used for the skin. Silverlon dressing was placed followed by 4 x 4's ABDs and foam tape. Patient was then carefully rolled supine, transfe rred to the hospital bed, Placed into an abduction pillow, extubated, and transferred to recovery room in stable condition. Postoperative course: Patient will be readmitted to the internal medicine s ervice. He will be weightbearing as tolerated with posterior hip precautions. He can restart his Eliquis tomorrow for DVT prophylaxis. Follow-up with orthopedics 2 weeks after surgery. Outer dressing can be removed tomorrow and he can shower with the Silverlon dressing in place. Silverlon to be left intact until his 2-week follow-up. I attest to the content of the Intraoperative Record and any orders documented therein. Any exceptions are noted below.
--- NOTE | 2023-09-18 12:05 | Operative Report ---
Post Operative Report Pre & Post Diagnosis Operation Date: 09/18/23 07:30 Pre-Op Diagnosis: Closed left hip fracture Post-Op Diagnosis: Closed left hip fracture I identified the patient and participated in the time-out.: Yes Procedure Operation Date: 09/18/23 07:30 Actual Procedures p Left Hip Cemented Hemiarthroplasty(Left) - Billy Beard MD Surgeon RUBY Beard MD Cooky Machine Operator Calvin Ramos PA-C. No resident or fellow was available to assist. Estimated Blood Loss 50 Findings Consistent with Post-Op Diagnosis see operative report Specimens see operative report Drains none Complications none Disposition Accompanied Patient To Recovery: Yes Indications This 83 year old male presented through the ED with complaints of left hip pain after falling at home. He elected to proceed with surgical intervention after being educated about potential risks and outcomes. Preoperative imaging was obtained. Description of Procedure The patient was taken to the operating room where he was given general anesthesia. He was prepped and draped in the usual sterile fashion. Please see Dr. Beard's operative report for specifics of the procedure. I was present for the entire case from initial patient positioning through final wound closure. Assistance was provided in tissue retraction, hemostasis, trial implant placement, final implant placement, and final wound closure. The patient was taken to the recovery room in satisfactory condition. I attest to the content of the Intraoperative Record and any orders documented therein. Any exceptions are noted below.
--- NOTE | 2023-09-18 12:48 | Anesthesiology Progress Note ---
Date of Service September 18, 2023 Anesthesia Post Procedure Vital Signs Vital Signs: Temp Pulse Pulse Resp BP Pulse Ox O2 Del Method 09/18/23 12:30 36.2 C L 75 22 120/70 92 Nasal Cannula 09/18/23 12:20 74 23 129/67 95 Oxymask 09/18/23 12:10 71 17 130/66 94 Oxymask 09/18/23 12:00 36.7 C 67 18 115/60 96 Oxymask 09/18/23 09:05 Room Air 09/18/23 08:35 96 Room Air 09/18/23 07:44 36.6 C 68 17 112/55 L 91 Room Air 09/17/23 22:01 93 H 16 117/72 95 Room Air 09/17/23 22:00 Room Air 09/17/23 20:41 36.4 C L 74 16 118/64 94 Room Air 09/17/23 14:38 36.7 C 71 16 107/60 93 Room Air O2 Flow Rate 09/18/23 12:30 2 09/18/23 12:20 2 09/18/23 12:10 2 09/18/23 12:00 8 09/18/23 09:05 09/18/23 08:35 09/18/23 07:44 09/17/23 22:01 09/17/23 22:00 09/17/23 20:41 09/17/23 14:38 Transfer of Care Handoff Completed per policy Notes Mental Status: alert / awake / arousable Patient Amnestic to Procedure: Yes Nausea / Vomiting: adequately controlled Pain: adequately controlled Airway Patency, RR, SpO2: stable & adequate BP & HR: stable & adequate Hydration State: stable & adequate Anesthetic Complications: no major complications apparent
--- NOTE | 2023-09-18 12:50 | XRay Report ---
XR pelvis 1-2V routine CLINICAL HISTORY: In PACU - Post Surgical TECHNIQUE: A single frontal view of the pelvis was obtained. Comparison: Comparison is made to hip radiograph 09/16/2023 FINDINGS: Patient is status post total left hip arthroplasty with expected postsurgical changes including soft tissue swelling, and subcutaneous emphysema. No periarticular lucency or hardware fracture is seen. IMPRESSION: Expected postoperative appearance status post placement of total hip arthroplasty. ACT 112: Negative or not required by law. Electronically signed by: Gianfranco De Guzman M.D. 09/18/2023 12:49 PM
[2023-09-18] MEDS: OLANZAPINE 2.5 MG TAB PO STA (13:00)
[2023-09-18] MEDS ORDERED: diphenhydrAMINE 50 MG/ML VIAL IV PRN (13:01)
[2023-09-18] MEDS ORDERED: ALUMINUM/MAGNESIUM SUSP 30 ML UDC PO PRN (13:01)
[2023-09-18] MEDS ORDERED: oxyCODONE HCL IR 5 MG TAB (IMMEDIATE RELEASE) PO PRN (13:01)
[2023-09-18] MEDS ORDERED: METOCLOPRAMIDE HCL INJ 5 MG/ML 2 ML VIAL IV PRN (13:01)
[2023-09-18] MEDS ORDERED: TAMSULOSIN HCL 0.4 MG CAP PO PRN (13:01)
[2023-09-18] MEDS ORDERED: MAGNESIUM HYDROXIDE SUSP 30 ML UDC PO PRN (13:01)
[2023-09-18] MEDS ORDERED: NALOXONE HCL 0.4 MG/1 ML VIAL/CARP IV PRN (13:01)
[2023-09-18] MEDS ORDERED: bisacodyL 10 MG SUPP PR PRN (13:01)
[2023-09-18] MEDS: SODIUM CHLORIDE 0.9% 1,000 ML IV SCH (13:15)
--- NOTE | 2023-09-18 14:00 | Hospitalist Progress Note ---
Date of Service September 18, 2023 Assessment & Plan (1) Fracture of proximal end of left femur: Plan: Ground-level fall onto concrete on 09/12 Worsening left hip pain since Hip CT revealed acute comminuted, impacted, mildly angulated and displaced transcervical left femoral fracture Orthopedics consulted - S/p left hip cemented hemiarthroplasty on 09/[address] Irvin - Hold Eliquis - can resume AM 09/18 - femoral head pathology pending - outpatient follow up in 2 weeks EBL 50 PT/OT evaluations appreciated Case management following - will likely need rehab (2) PAF (paroxysmal atrial fibrillation): Plan: Hold Eliquis Continue metoprolol (3) Acute CHF: Plan: +1 pitting edema in lower extremities bilaterally, but overall weight is down Continue Lasix, Entresto, spironolactone, and K supplementation - hold entresto and spironolactone preoperatively - will await to resume pending AM labs Last echo revealed LVEF at 20-25% Plan Disposition: continued inpatient stay, OR tomorrow VTE PPx: Hold Eliquis; teds for now Admission and Anticipated Discharge Date Admission Date: September 16, 2023 Supervising Physician Co-Signing Physician Notes Attending Attestation - Chart reviewed, care plan d/w CLEOPATRA Gregg. I agree w/ the galindo components of her documentation. Willie Brown MD Subjective patient apologizes profusely for how he acted last night currently sitting up eating lunch no pain Review of Systems Review of Systems: All systems reviewed & are unremarkable except as noted in Subjective Physical Exam Physical Exam: General: NAD, VS as above Resp: normal respiratory effort, lungs clear to auscultation CV: RRR, no murmur, Abd: soft, non tender, no hepatosplenomegaly Extremities: dressing c/d/i over right hip, ice in place. able to wiggle toes bilaterally Results & Data Results & Data Vital Signs (Past 12 Hours) Vital Signs Temp Pulse Pulse Resp BP Pulse Ox O2 Del Method 09/18/23 13:26 36.4 C L 73 17 146/72 H 94 Nasal Cannula 09/18/23 13:01 36.4 C L 74 18 119/72 94 Nasal Cannula 09/18/23 12:45 73 21 123/79 95 Nasal Cannula 09/18/23 12:30 36.2 C L 75 22 120/70 92 Nasal Cannula 09/18/23 12:20 74 23 129/67 95 Oxymask 09/18/23 12:10 71 17 130/66 94 Oxymask 09/18/23 12:00 36.7 C 67 18 115/60 96 Oxymask 09/18/23 09:05 Room Air 09/18/23 08:35 96 Room Air 09/18/23 07:44 36.6 C 68 17 112/55 L 91 Room Air O2 Flow Rate 09/18/23 13:26 1 09/18/23 13:01 1 09/18/23 12:45 2 09/18/23 12:30 2 09/18/23 12:20 2 09/18/23 12:10 2 09/18/23 12:00 8 09/18/23 09:05 09/18/23 08:35 09/18/23 07:44 Laboratory Results CBC and chemistry reviewed PG Care Time/CCT Total # of Minutes Spent Total Time Spent with Patient: Total time spent is greater than 50% in coordination of care (as documented) at patient's floor/unit and/or counseling patient: Coding Level of Care Code 64377 SUB INP/OBS CARE 2/35MIN Diagnoses Fracture of proximal end of left femur S72.002A PAF (paroxysmal atrial fibrillation) I48.0 Acute CHF I50.9
[2023-09-18] MEDS: ASCORBIC ACID 500 MG TAB PO SCH (16:30)
[2023-09-18] MEDS: FERROUS GLUCONATE 324 MG TAB PO SCH (16:31)
[2023-09-18] MEDS: ceFAZolin 2000MG 2,000 MG/15 ML SYR IV SCH (17:04)
[2023-09-18] MEDS: SENNA 8.6 MG TAB PO SCH (21:47)
[2023-09-18] MEDS: DOCUSATE SODIUM 100 MG CAP PO SCH (21:48)
[2023-09-19 06:17] LABS: Basophils # (auto) 0.01 K/uL (0.00-0.20); Basophils % (auto) 0.1 %; Hematocrit (blood only) 34.5 % (42.0-52.0); Hemoglobin 11.9 g/dl (14.0-18.0); Immature Granulocytes # (auto) 0.03 K/uL (0.01-0.20); Immature Granulocytes % (auto) 0.3 %; Lymphocytes # (auto) 1.08 K/uL (1.20-3.40); Lymphocytes % (auto) 10.4 %; Mean Corpuscular Hemoglobin 30.4 pg (25.0-34.0); Mean Corpuscular Hgb Conc 34.5 g/dL (32.0-36.0); Mean Platelet Volume 10.9 fL (9.4-12.4); Monocytes # (auto) 0.73 K/uL (0.11-0.59); Neutrophils # (auto) 8.58 K/uL (1.40-6.50); Neutrophils % (auto) 82.2 %; Platelet Count 197 K/uL (130-400); RDW Coefficient of Variation 14.6 % (11.5-14.5); RDW Standard Deviation 46.9 fL (36.4-46.3); Red Blood Count 3.92 M/uL (4.70-6.10); White Blood Count 10.43 K/ul (4.8-10.8)
[2023-09-19 06:33] LABS: BUN Creatinine Ratio 33.6 (10-20); Calcium 8.5 mg/dl (8.6-10.3); Creatinine Clr Calc Pharmacy 46.2 ml/min; Est GFR (African American) 68.3 ml/min; Est GFR (Non-African American) 58.9 ml/min; Potassium 4.8 mmol/L (3.5-5.1)
--- NOTE | 2023-09-19 07:49 | Orthopedic Progress Note ---
Date of Service September 19, 2023 Assessment & Plan (1) S/P hip hemiarthroplasty: Plan: Patient is doing well this morning. Will try oral tramadol for pain not responding to Tylenol. Continue to ice the hip with EZ wrap. PT OT today. Weight-bear as tolerated with posterior hip precautions and a walker with max assist. Abduction pillow to be worn while he is in bed. Eliquis to start today for DVT prophylaxis. Silverlon dressing to be left in place until his 2-week follow-up appointment. He is okay to shower with the Silverlon dressing in place. Case management to see patient today for discharge planning. Likely going to need a residential facility. Follow-up with orthopedics 2 weeks after surgery. Admission and Anticipated Discharge Date Admission Date: September 16, 2023 Subjective Postop day 1 following left hip cemented hemiarthroplasty for femoral neck fracture. Patient reports he has done well overnight. Pain is adequately controlled. Denies numbness or tingling down his leg. Tolerating an oral diet. Denies fevers chills chest pain shortness of breath. Physical Exam Physical Exam: resting comfortably in bed in no acute distress. Alert and oriented x 3. Left hip exam: Outer dressing was removed. There is scant bloody drainage seen through the window. No active drainage. Distally neurovascularly intact. Results & Data Vital Signs (Past 12 Hours) Vital Signs Temp Pulse Resp BP Pulse Ox O2 Del Method 09/19/23 06:50 36.7 C 71 16 103/57 L 95 Room Air 09/19/23 02:44 36.4 C L 75 16 120/71 93 Room Air 09/18/23 23:06 36.5 C 71 16 103/57 L 94 Room Air 09/18/23 21:43 80 104/58 L 92 Room Air Laboratory Results H&H this morning 11.9 and 34.5. Diagnostic Findings Postop x-rays show cemented hemiarthroplasty in good position with no evidence of complication
[2023-09-19] MEDS ORDERED: traMADol HCL 50 MG TABLET PO PRN (07:50)
[2023-09-19] MEDS: APIXABAN 5 MG TABLET PO SCH (08:08)
[2023-09-19] MEDS: dexAMETHasone 4 MG TAB PO SCH (08:08)
[2023-09-19] MEDS: MULTIVITAMIN TAB PO SCH (08:09)
[2023-09-19] MEDS ORDERED: APIXABAN 5 MG TABLET PO SCH (09:00)
--- NOTE | 2023-09-19 20:27 | Hospitalist Progress Note ---
Date of Service September 19, 2023 Assessment & Plan (1) Fracture of proximal end of left femur: Plan: Ground-level fall onto concrete on 09/12 coming out of [facility] Then developed worsening left hip and finally presented on 09/[address] revealed acute comminuted, impacted, mildly angulated and displaced transcervical left femoral fracture POD #1 - s/p left hip cemented hemiarthroplasty on 09/[address] Beard Check 25-OH vit D level tomorrow DVT proph - Eliquis - resume today Outpatient follow up in 2 weeks post-d/c PT/OT Dispo planning for rehab (2) PAF (paroxysmal atrial fibrillation): Plan: Examines in NSR today Continue metoprolol succinate 50mg BID Resume Eliquis today (3) CAD (coronary atherosclerotic disease): Plan: follows with [facility] [place] Cardiology - Dr Jarad Lockwood 4-vessel CABG 2001 no recent ischemic symptoms remains on metoprolol succinate BID, lipitor 80mg daily, Entresto/aldactone (al though holding latter 2 agents due to mild YANELI) (4) History of coronary artery bypass graft: Plan: as above (5) Chronic systolic (congestive) heart failure: Plan: long-standing, chronic - presumed nonischemic (records suggest etoh-induced?) EF 20-25% on echo 08/2023 compensated on exam today cont metoprolol succ; lasix daily has mild YANELI - hold temporarily Entresto/aldactone (6) Hypertension: Plan: controlled (7) Pre-diabetes: Plan: last Hba1c 5.8% in fall 2022 recheck an a1c while here (8) YANELI (acute kidney injury): Plan: baseline Cr 0.7 to 0.9 1.13 today likely due to pre-renal factors in the setting of surgery for his left hip fracture yesterday has had some low-normal BPs at times this admission hold Entresto hold aldactone repeat BMP am would NOT hydrate given his severe LV dysfunction; he is taking adequate PO, etc. (9) Hypothyroidism: Plan: last TSH earlier this year was 26.7 in May 2023 cont synthroid repeat TSH am (10) DVT prophylaxis: Plan: Eliquis 5mg BID Plan dispo planning for rehab Admission and Anticipated Discharge Date Admission Date: September 16, 2023 Subjective no events overnight denies ANY pain in left hip denies chest pain, dyspnea, or FERGUSON (although has not ambulated that much) did have BM earlier today eating well agreeable to rehab Review of Systems Review of Systems: CV - no orthopnea or edema pulm - no cough/congestion/dyspnea GI - no abd pain or N/V Physical Exam Physical Exam: gen - NAD, laying in bed comfortably, pleasant neck - no JVD mouth - MMM heart - RRR, s1 s2, 2/6 JORGE LSB lungs - CTA b/l abd - soft NT ND BS+ ext - L thigh edema, dressings intact, no ankle edema b/l; pulses 2+ b/l psych - a/o x 3 Results & Data Results & Data Vital Signs (Past 12 Hours) Vital Signs Temp Pulse Resp BP Pulse Ox O2 Del Method 09/19/23 19:39 36.3 C L 76 16 116/64 98 Room Air 09/19/23 14:40 36.4 C L 74 16 120/71 95 Room Air Laboratory Results Laboratory Results 09/19/23 05:24 WBC 10.43 RBC 3.92 L Hgb 11.9 L Hct 34.5 L MCV 88.0 MCH 30.4 MCHC 34.5 RDW Std Deviation 46.9 H RDW Coeff of Rolan 14.6 H Plt Count 197 MPV 10.9 Immature Gran % (Auto) 0.3 Neut % (Auto) 82.2 Lymph % (Auto) 10.4 Whitman % (Auto) 7.0 Eos % (Auto) 0.0 Baso % (Auto) 0.1 Neut # (Auto) 8.58 H Lymph # (Auto) 1.08 L Whitman # (Auto) 0.73 H Eos # (Auto) 0.00 Baso # (Auto) 0.01 Immature Gran # (Auto) 0.03 Sodium 134 L Potassium 4.8 D Chloride 104 Carbon Dioxide 21 Anion Gap 9 BUN 38 H Creatinine 1.13 D Est Cr Clr Drug Dosing 46.2 Est GFR ( Amer) 68.3 Est GFR (Non-Af Amer) 58.9 BUN/Creatinine Ratio 33.6 H Glucose 148 H Calcium 8.5 L PG Care Time/CCT Total # of Minutes Spent Total Time Spent with Patient: Total time spent is greater than 50% in coordination of care (as documented) at patient's floor/unit and/or counseling patient: Coding Level of Care Code 97499 SUB INP/OBS CARE MIN Diagnoses Fracture of proximal end of left femur S72.002A PAF (paroxysmal atrial fibrillation) I48.0 CAD (coronary atherosclerotic disease) I25.10 History of coronary artery bypass graft Z95.1 Chronic systolic (congestive) heart failure I50.22 Hypertension I10 Pre-diabetes R73.03 YANELI (acute kidney injury) N17.9 Hypothyroidism E03.9 DVT prophylaxis Z29.9
[2023-09-20] MEDS ORDERED: Nursing to Pharmacy Communication SCH (01:00)
[2023-09-20 09:29] LABS: BUN Creatinine Ratio 45.3 (10-20); Calcium 8.8 mg/dl (8.6-10.3); Creatinine Clr Calc Pharmacy 69.7 ml/min; Est GFR (African American) 96.9 ml/min; Est GFR (Non-African American) 83.6 ml/min; Potassium 4.1 mmol/L (3.5-5.1)
[2023-09-20 09:42] LABS: Thyroid Stimulating Hormone 4.408 uIu/ml (0.300-4.500)
--- NOTE | 2023-09-20 10:12 | Orthopedic Progress Note ---
Date of Service September 20, 2023 Assessment & Plan (1) S/P hip hemiarthroplasty: Plan: Patient is doing well this morning. Pain control with oral Tylenol. D/C Tramadol Continue to ice the hip with EZ wrap. PT/OT Total hip precautions reviewed. Weight-bear as tolerated with posterior hip precautions and a walker with max assist. Abduction pillow to be worn while he is in bed. Eliquis to start today for DVT prophylaxis. Silverlon dressing to be left in place until his 2-week follow-up appointment. He is okay to shower with the Silverlon dressing in place. Case management to see patient for discharge planning. Likely going to need a intermediate facility. Follow-up with orthopedics 2 weeks after surgery. With questions contact our clinic at [phone] Admission and Anticipated Discharge Date Admission Date: September 16, 2023 Subjective This 83-year-old male is seen in 2 days status post left cemented hip hemiarthroplasty. He states he is doing very well. He states that his pain is effectively controlled with the medication he is receiving. He states that he has been able to transition from his bed to the bathroom with slow steps. He hopes to be able to participate fully in physical therapy this morning. Currently he denies chest pain, shortness of breath, fever, chills, sweats, numbness or tingling in his left lower extremity. He also denies nausea, vomiting or difficulty voiding but has had a few episodes of diarrhea. Review of Systems Review of Systems: All systems reviewed & are unremarkable except as noted in Subjective Physical Exam Physical Exam: Left hip: Silverlon is clean dry and intact and left in place. Patient is able to perform active straight leg raise test. He is able to actively dorsi and plantarflex foot without issue. He has no pain with logroll testing. Passive hip flexion beyond 80 degrees causes no pain. Patient has no pain with light passive internal and external hip rotation. Patient states that he has a numb sensation with palpation of the pads of digits but states that this is baseline. Results & Data Vital Signs (Past 12 Hours) Vital Signs Temp Pulse Resp BP Pulse Ox O2 Del Method 09/20/23 07:19 36.4 C L 69 16 114/63 96 Room Air 09/19/23 22:29 73 114/64 94 Room Air Diagnostic Findings Laboratory Results WBC 10.43 K/ul (4.8-10.8) 09/19/23 05:24 RBC 3.92 M/uL (4.70-6.10) L 09/19/23 05:24 Hgb 11.9 g/dl (14.0-18.0) L 09/19/23 05:24 Hct 34.5 % (42.0-52.0) L 09/19/23 05:24 MCV 88.0 fL (80.0-100.0) 09/19/23 05:24 MCH 30.4 pg (25.0-34.0) 09/19/23 05:24 MCHC 34.5 g/dL (32.0-36.0) 09/19/23 05:24 RDW Std Deviation 46.9 fL (36.4-46.3) H 09/19/23 05:24 RDW Coeff of Rolan 14.6 % (11.5-14.5) H 09/19/23 05:24 Plt Count 197 K/uL (130-400) 09/19/23 05:24 MPV 10.9 fL (9.4-12.4) 09/19/23 05:24 Immature Gran % (Auto) 0.3 % 09/19/23 05:24 Neut % (Auto) 82.2 % 09/19/23 05:24 Lymph % (Auto) 10.4 % 09/19/23 05:24 [place] % (Auto) 7.0 % 09/19/23 05:24 Eos % (Auto) 0.0 % 09/19/23 05:24 Baso % (Auto) 0.1 % 09/19/23 05:24 Neut # (Auto) 8.58 K/uL (1.40-6.50) H 09/19/23 05:24 Lymph # (Auto) 1.08 K/uL (1.20-3.40) L 09/19/23 05:24 [place] # (Auto) 0.73 K/uL (0.11-0.59) H 09/19/23 05:24 Eos # (Auto) 0.00 K/uL (0.00-0.50) 09/19/23 05:24 Baso # (Auto) 0.01 K/uL (0.00-0.20) 09/19/23 05:24 Immature Gran # (Auto) 0.03 K/uL (0.01-0.20) 09/19/23 05:24 PT 12.5 Seconds (9.0-12.0) H 09/16/23 14:29 INR 1.2 (0.9-1.1) H 09/16/23 14:29 APTT 30 Seconds (21-31) 09/16/23 14:29 PTT Ratio 1.1 09/16/23 14:29 Sodium 136 mmol/L (136-145) 09/20/23 08:38 Potassium 4.1 mmol/L (3.5-5.1) 09/20/23 08:38 Chloride 106 mmol/L (98-107) 09/20/23 08:38 Carbon Dioxide 23 mmol/L (21-32) 09/20/23 08:38 Anion Gap 7 (3-11) 09/20/23 08:38 BUN 34 mg/dl (6-23) H 09/20/23 08:38 Creatinine 0.75 mg/dl (0.6-1.4) D 09/20/23 08:38 Est Cr Clr Drug Dosing 69.7 ml/min 09/20/23 08:38 Est GFR ( Amer) 96.9 ml/min 09/20/23 08:38 Est GFR (Non-Af Amer) 83.6 ml/min 09/20/23 08:38 BUN/Creatinine Ratio 45.3 (10-20) H 09/20/23 08:38 Glucose 117 mg/dl (70-99(Fasting)) H 09/20/23 08:38 POC Glucose 121 mg/dl (70-99) H 09/17/23 11:12 Calcium 8.8 mg/dl (8.6-10.3) 09/20/23 08:38 Total Bilirubin 2.1 mg/dl (0.2-1.0) H 09/16/23 14:29 AST 19 U/L (13-39) 09/16/23 14:29 ALT 12 U/L (7-52) 09/16/23 14:29 Alkaline Phosphatase 60 U/L (34-104) 09/16/23 14:29 Total Protein 6.8 gm/dl (6.0-8.3) 09/16/23 14:29 Albumin 4.0 gm/dl (3.4-5.0) 09/16/23 14:29 Globulin 2.8 gm/dl (2.5-4.0) 09/16/23 14:29 Albumin/Globulin Ratio 1.4 (0.9-2) 09/16/23 14:29 25-OH Vitamin D Total 21.4 ng/ml (30-100) L 09/20/23 08:38 TSH 4.408 uIu/ml (0.300-4.500) 09/20/23 08:38 Urine Color Dark Yellow 09/16/23 22:45 Urine Appearance Clear (Clear) 09/16/23 22:45 Urine pH 5.0 (4.5-7.5) 09/16/23 22:45 Ur Specific [place] 1.023 (1.000-1.030) 09/16/23 22:45 Urine Protein Negative (Negative) 09/16/23 22:45 Urine Glucose (UA) Negative (Negative) 09/16/23 22:45 Urine Ketones 1+ (Negative) H 09/16/23 22:45 Urine Blood Negative (Negative) 09/16/23 22:45 Urine Nitrite Negative (Negative) 09/16/23 22:45 Urine Bilirubin Negative (Negative) 09/16/23 22:45 Urine Urobilinogen Negative (Negative) 09/16/23 22:45 Ur Leukocyte Esterase Negative (Negative) 09/16/23 22:[address] 09/16/23 12:43 CT hip LT wo con HISTORY: 83 years-old Male fall, unable to ambulate acute pain left hip status post fall COMPARISON: None TECHNIQUE: Multiple axial CT images of the left hip were obtained without IV contrast. A dose lowering technique was used consistent with the principals of ALARA. FINDINGS: Distended urinary bladder. Prostatomegaly. Arterial calcifications. Subcutaneous and deep tissue edema surrounds the left hip. Trace left hip joint effusion. Demineralized appearance of the bones. Moderate left hip osteoarthritis. There is an acute comminuted and impacted transcervical left femoral fracture demonstrating apex anterolateral angulation with displacement of approximately 1.5 cm. No dislocation, additional acute fracture identified. IMPRESSION: Acute comminuted, impacted, mildly angulated and slightly displaced transcervical left femoral fracture. ACT 112: Negative or not required by law. The above report was generated using voice recognition software. It may contain grammatical, syntax or spelling errors. Electronically signed by: Lowell Amato M.D. 09/16/2023 1:54 PM Chest X-Ray 09/16/23 14:16 XR chest 1V portable CLINICAL HISTORY: hip fracture TECHNIQUE: Single frontal radiograph of the chest was obtained. Comparison: Comparison is made to chest radiograph 06/03/2023 FINDINGS: Median sternotomy wires are unchanged. Cardiomegaly is noted. The aortic arch is calcified. The lungs are clear. No evidence of pleural effusion or pneumothorax. IMPRESSION: Bilateral pleural effusions have resolved from prior exam. Stable cardiomegaly. ACT 112: Negative or not required by law. Electronically signed by: Gianfranco De Guzman M.D. 09/16/2023 2:56 PM Hip/Pelvis X-Ray 09/16/23 14:29 SINGLE VIEW PELVIS; 2 VIEWS LEFT HIP CLINICAL HISTORY: Left hip fracture. FINDINGS: An AP view of the pelvis with AP and crosstable lateral views of the left hip are correlated with CT scan of the left hip performed the same day 09/16/2023. The skeletal structures are osteopenic. Again seen is an acute impacted subcapital fracture of the left proximal femur. There is mild displacement of fragments. Overlying soft tissue edema is noted. No additional acute fracture is seen involving the right hip or the bony pelvis. Mild arthritic change and joint space narrowing is seen in the hips. Degenerative sclerosis is noted in the sacroiliac joints. There is advanced atherosclerotic calcification of the femoral arteries. Phleboliths are seen in the pelvis. IMPRESSION: Unchanged appearance of an impacted subcapital fracture of the left proximal femur as above. Electronically signed by: Brian Taylor M.D. 09/16/2023 3:14 PM Pelvis X-Ray 09/18/23 12:14 XR pelvis 1-2V routine CLINICAL HISTORY: In PACU - Post Surgical TECHNIQUE: A single frontal view of the pelvis was obtained. Comparison: Comparison is made to hip radiograph 09/16/2023 FINDINGS: Patient is status post total left hip arthroplasty with expected postsurgical changes including soft tissue swelling, and subcutaneous emphysema. No periarticular lucency or hardware fracture is seen. IMPRESSION: Expected postoperative appearance status post placement of total hip arthroplasty. ACT 112: Negative or not required by law. Electronically signed by: Gianfranco De Guzman M.D. 09/18/2023 12:49 PM
--- NOTE | 2023-09-21 11:04 | Orthopedic Progress Note ---
Date of Service September 21, 2023 Assessment & Plan (1) S/P hip hemiarthroplasty: Plan: Postop day 3-status post hemiarthroplasty left hip with Dr. Beard Patient is doing well this morning. Pain control with oral Tylenol. D/C Tramadol Continue to ice the hip with EZ wrap. PT/OT Total hip precautions reviewed. Weight-bear as tolerated with posterior hip precautions and a walker with max assist. Abduction pillow to be worn while he is in bed. Eliquis to start today for DVT prophylaxis. Silverlon dressing to be left in place until his 2-week follow-up appointment. He is okay to shower with the Silverlon dressing in place. Case management to see patient for discharge planning. Likely going to need a longterm facility. Follow-up with orthopedics 2 weeks after surgery As scheduled. With questions contact our clinic at [phone] Admission and Anticipated Discharge Date Admission Date: September 16, 2023 Jennifer Barker is doing well. Resting in bed. Just finished physical therapy and ambulating in the room. Denies any significant pain in his left hip. Tolerating a regular diet. Denies any postoperative shortness of breath, chest pain, lightheadedness or dizziness. Denies any postoperative nausea or vomiting. Denies any numbness or tingling down his left leg. Physical Exam Musculoskeletal: Exam of his left lower extremity: Silverlon is in place. No surrounding edema or erythema of the left hip and buttock area. Mildly tender with gentle palpation. Tolerates logrolling of his left hip. Tolerates range of motion the left knee. Left knee has no effusion. Calf is supple and nontender. No distal edema. Dorsalis pedis and posterior tibial pulses are 1+. Strength of the left ankle and great toe are 5/5. Full range of motion. Capillary refill is brisk. Abduction pillow in place while in bed. Results & Data Vital Signs (Past 12 Hours) Vital Signs Temp Pulse Resp BP Pulse Ox O2 Del Method 09/21/23 09:45 Room Air 09/21/23 07:20 36.6 C 74 22 112/50 L 94 Room Air
[2023-09-21] MEDS ORDERED: POLYETHYLENE (MIRALAX) 17 GM PACK PO PRN (18:17)
--- NOTE | 2023-09-21 18:24 | Hospitalist Progress Note ---
Date of Service September 21, 2023 Assessment & Plan (1) Fracture of proximal end of left femur: Plan: Ground-level fall onto concrete on 09/[address] [facility] Then developed worsening left hip and finally presented on 09/[address] revealed acute comminuted, impacted, mildly angulated and displaced transcervical left femoral fracture left hip cemented hemiarthroplasty on 09/[address] Beard 25-OH vit D level low at 21 - replace po DVT proph - Eliquis Outpatient follow up in 2 weeks post-d/c PT/OT Dispo planning for rehab tomorrow (2) PAF (paroxysmal atrial fibrillation): Plan: Continue metoprolol succinate 50mg BID Resumed Eliquis (3) CAD (coronary atherosclerotic disease): Plan: follows with [facility] [place] Cardiology - Dr Jarad Lockwood 4-vessel CABG 2001 no recent ischemic symptoms remains on metoprolol succinate BID, lipitor 80mg daily, Entresto/aldactone (although holding latter 2 agents due to mild YANELI) - creatinine improved to baseline 0.75 today, resume these on discharge (4) History of coronary artery bypass graft: Plan: as above (5) Chronic systolic (congestive) heart failure: Plan: long-standing, chronic - presumed nonischemic (records suggest etoh-induced?) EF 20-25% on echo 08/2023 euvolemic cont metoprolol succ; lasix daily resume Entresto/aldactone on discharge (6) Hypertension: Plan: controlled (7) Pre-diabetes: Plan: last Hba1c 5.8% in fall 2022 (8) YANELI (acute kidney injury): Plan: baseline Cr 0.7 to 0.9 peak 1.13 then improved back to baseline as of 09/19 likely due to pre-renal factors in the setting of surgery for his left hip fracture held Entresto/aldactone temporarily (9) Hypothyroidism: Plan: last TSH earlier this year was 26.7 in May 2023 cont synthroid updated TSH was 4.4 (10) DVT prophylaxis: Plan: Eliquis 5mg BID Plan dispo planning for rehab Admission and Anticipated Discharge Date Admission Date: September 16, 2023 Subjective This morning had huge stool "explosion" and appetite low / feels unsettled after that, however, otherwise doing well and no significant pain from L hip Physical Exam 2 Physical Exam: PHYSICAL EXAMINATION Last 24h vital signs reviewed, see documentation in flowsheet General: comfortable appearing, no distress HEENT: Normocephalic, atraumatic, pupils round and equal, sclerae anicteric, no conjunctival injection, moist mucus membranes Lungs: Normal respiratory effort. Clear to auscultation bilaterally. No RRW Heart: Regular rate and rhythm, no murmurs. No JVD Abdomen: Soft, nontender, nondistended. Bowel sounds present. Extremities: Warm, dry, well-perfused. No extremity edema. left hip under ice pack, surgical incision dressed, no swelling or hematoma Neuro: Alert and oriented x 4, face symmetric, moves 4 extremities well Psych: Normal affect and behavior Results & Data Results & Data Vital Signs (Past 12 Hours) Vital Signs Temp Pulse Pulse Resp BP BP Pulse Ox 09/21/23 14:33 36.3 C L 78 16 116/72 95 09/21/23 12:53 36 C L 72 20 130/52 L 95 09/21/23 09:45 09/21/23 07:20 36.6 C 74 22 112/50 L 94 O2 Del Method 09/21/23 14:33 Room Air 09/21/23 12:53 Room Air 09/21/23 09:45 Room Air 09/21/23 07:20 Room Air Laboratory Results 09/19/23 05:24 09/20/23 08:38 PG Care Time/CCT Total # of Minutes Spent Total Time Spent with Patient: Total time spent is greater than 50% in coordination of care (as documented) at patient's floor/unit and/or counseling patient: Coding Level of Care Code 31702 SUB INP/OBS CARE 2/35MIN Diagnoses Fracture of proximal end of left femur S72.002A PAF (paroxysmal atrial fibrillation) I48.0 CAD (coronary atherosclerotic disease) I25.10 History of coronary artery bypass graft Z95.1 Chronic systolic (congestive) heart failure I50.22 Hypertension I10 Pre-diabetes R73.03 YANELI (acute kidney injury) N17.9 Hypothyroidism E03.9 DVT prophylaxis Z29.9
--- NOTE | 2023-09-22 12:52 | Orthopedic Progress Note ---
Date of Service September 22, 2023 Assessment & Plan (1) S/P hip hemiarthroplasty: Plan: The patient will be discharged to the [facility] this afternoon. Continue total hip precautions. Continue his Eliquis twice daily. He should sleep with a pillow between his legs. Avoid internal rotation, abduction, and hyperflexion. Continue ambulating with his walker. Weight-bear as tolerated. Follow-up in the office in 10 days with me for staple removal. Leave the Silverlon dressing in place. He may shower over it. Continue with oral Tylenol every 6 hours as needed for discomfort. Ice application may also help. Call the office with any other concerns. Admission and Anticipated Discharge Date Admission Date: September 16, 2023 Subjective This 83-year-old male is seen today in his room. He is postop day 4 from left hip hemiarthroplasty. He states he is doing well today. He has minimal hip pain. He states he will be leaving today for a rehab facility. He denies any chest pain or shortness of breath. No nausea or vomiting. No additional complaints at this time. Physical Exam Physical Exam: General: Well-developed, well-nourished, elderly male, in no acute distress. Laying in bed watching television. Alert and conversive. Skin: Warm and dry with good turgor. No rashes. Silverlon dressing is in place on the left hip. There is no drainage. No significant ecchymosis or edema. Musculoskeletal: The patient has intact motor function to the left leg for hip flexion, knee flexion, and ankle motion. He denies any significant discomfort with logrolling of the left leg. Hip flexion to around 90 degrees causes some discomfort but no andrzej pain. He has intact active motion for heel slides with expected difficulty. Neurologic: Gross sensation is intact across the left leg by soft touch. Peripheral pulses are 2+. Results & Data Vital Signs (Past 12 Hours) Vital Signs Temp Pulse Pulse Resp BP BP Pulse Ox 09/22/23 11:27 36.3 C L 72 77 16 130/52 L 139/78 95 09/22/23 07:23 36.3 C L 77 16 139/78 95 O2 Del Method 09/22/23 11:27 09/22/23 07:23 Room Air
--- NOTE | 2023-09-22 15:46 | Discharge Summary ---
Date of Service September 22, 2023 Admission HPI Per Admitting Provider Cameron is an 83-year-old male with PMH of HTN, hypercholesteremia, CAD, vascular disease, PAD, lactic acidosis, paroxysmal atrial fibrillation (on apixaban), alcohol use, and systolic CHF. He presented for a ground-level fall onto concrete on Tuesday 09/12 around 3 PM in the afternoon. Patient reports he was walking back to his car from [place], and suddenly tripped and fell. He struck his left hip. No head strike. No LOC. Patient is on blood thinners for paroxysmal atrial fibrillation. He was immediately helped up by to [employer] employees. He did not seek medical attention this time, however over the course the next couple days his walking got worse and it would take him "5 minutes" to walk from one room to the next. While he endorses 0/10 pain at present, he does report 9/10 left hip pain when he takes long strides/steps. No radiation down the leg. The pain stays for a few seconds then goes away. He has not been taking any pain medication for this. No prior injuries to the hip or pelvis. He does not remember any prior falls. Patient did not take his regular morning medications. His medications are managed by his daughter and granddaughter, he is not fully aware of what he takes. Patient is a former smoker but quit over 40 years ago. No recent alcohol use. Patient's vitals are stable at time of admission. ED course: NSS ROS: Patient endorses occasional left hip pain when walking, weakness in legs (which patient attributes to poor circulation), and redness and swelling in akles and feet. Patient denies fever, chills, nightsweats, dizziness, lightheadedness, CABRAL, chest pain, chest pressure, chest palpitations, SOB, cough, abdominal pain, N/V/D, saddle anesthesia, changes in urinary/bowel habits, burning with urination, or numbness/tingling in the legs. Principal Diagnosis Left osteoporotic hip fracture Discharge Exam PHYSICAL EXAMINATION Last 24h vital signs reviewed, see documentation in flowsheet General: comfortable appearing, no distress HEENT: Normocephalic, atraumatic, pupils round and equal, sclerae anicteric, no conjunctival injection, moist mucus membranes Lungs: Normal respiratory effort. Clear to auscultation bilaterally. No RRW Heart: Regular rate and rhythm, no murmurs. No JVD Abdomen: Soft, nontender, nondistended. Bowel sounds present. Extremities: Warm, dry, well-perfused. No extremity edema. left hip minimally swollen, surgical incision dressed, no hematoma or ecchymoses Neuro: Alert and oriented x 4, face symmetric, moves 4 extremities well Psych: Normal affect and behavior Discharge Data Allergies Allergy/AdvReac Type Severity Reaction Status Date / Time No Known Allergies Allergy Unverified 09/16/23 10:32 Consultations 09/16/23 19:09 Consult Orthopedic Surgery Routine Procedures Performed Operation Date: 09/18/23 07:30 Actual Procedures p Left Hip Cemented Hemiarthroplasty(Left) - Billy Beard MD Ordered Studies 09/16/23 12:43 CT hip LT wo con Stat Hip CT 09/16/23 12:43 CT hip LT wo con HISTORY: 83 years-old Male fall, unable to ambulate acute pain left hip status post fall COMPARISON: None TECHNIQUE: Multiple axial CT images of the left hip were obtained without IV contrast. A dose lowering technique was used consistent with the principals of ALARA. FINDINGS: Distended urinary bladder. Prostatomegaly. Arterial calcifications. Subcutaneous and deep tissue edema surrounds the left hip. Trace left hip joint effusion. Demineralized appearance of the bones. Moderate left hip osteoarthritis. There is an acute comminuted and impacted transcervical left femoral fracture demonstrating apex anterolateral angulation with displacement of approximately 1.5 cm. No dislocation, additional acute fracture identified. IMPRESSION: Acute comminuted, impacted, mildly angulated and slightly displaced transcervical left femoral fracture. ACT 112: Negative or not required by law. The above report was generated using voice recognition software. It may contain grammatical, syntax or spelling errors. Electronically signed by: Lowell Amato M.D. 09/16/2023 1:54 PM Chest X-Ray 09/16/23 14:16 XR chest 1V portable CLINICAL HISTORY: hip fracture TECHNIQUE: Single frontal radiograph of the chest was obtained. Comparison: Comparison is made to chest radiograph 06/03/2023 FINDINGS: Median sternotomy wires are unchanged. Cardiomegaly is noted. The aortic arch is calcified. The lungs are clear. No evidence of pleural effusion or pneumothorax. IMPRESSION: Bilateral pleural effusions have resolved from prior exam. Stable cardiomegaly. ACT 112: Negative or not required by law. Electronically signed by: Gianfranco De Guzman M.D. 09/16/2023 2:56 PM Hip/Pelvis X-Ray 09/16/23 14:29 SINGLE VIEW PELVIS; 2 VIEWS LEFT HIP CLINICAL HISTORY: Left hip fracture. FINDINGS: An AP view of the pelvis with AP and crosstable lateral views of the left hip are correlated with CT scan of the left hip performed the same day 09/16/2023. The skeletal structures are osteopenic. Again seen is an acute impacted subcapital fracture of the left proximal femur. There is mild displacement of fragments. Overlying soft tissue edema is noted. No additional acute fracture is seen involving the right hip or the bony pelvis. Mild arthritic change and joint space narrowing is seen in the hips. Degenerative sclerosis is noted in the sacroiliac joints. There is advanced atherosclerotic calcification of the femoral arteries. Phleboliths are seen in the pelvis. IMPRESSION: Unchanged appearance of an impacted subcapital fracture of the left proximal femur as above. Electronically signed by: Brian Taylor M.D. 09/16/2023 3:14 PM Pelvis X-Ray 09/18/23 12:14 XR pelvis 1-2V routine CLINICAL HISTORY: In PACU - Post Surgical TECHNIQUE: A single frontal view of the pelvis was obtained. Comparison: Comparison is made to hip radiograph 09/16/2023 FINDINGS: Patient is status post total left hip arthroplasty with expected postsurgical changes including soft tissue swelling, and subcutaneous emphysema. No periarticular lucency or hardware fracture is seen. IMPRESSION: Expected postoperative appearance status post placement of total hip arthroplasty. ACT 112: Negative or not required by law. Electronically signed by: Gianfranco De Guzman M.D. 09/18/2023 12:49 PM 09/19/23 05:24 09/20/23 08:38 Hospital Course (1) Fracture of proximal end of left femur: Ground-level fall onto concrete on 09/12 coming out of [employer] Then developed worsening left hip and finally presented on 09/[address] revealed acute comminuted, impacted, mildly angulated and displaced transcervical left femoral fracture left hip cemented hemiarthroplasty on 09/[address] Beard 25-OH vit D level low at 21 - replace po DVT proph - Eliquis ortho follow up in 2 weeks post-d/c PT/OT (2) PAF (paroxysmal atrial fibrillation): Continue metoprolol succinate 50mg BID Resumed Eliquis (3) CAD (coronary atherosclerotic disease): follows with [facility] [place] [facility] - Dr Jarad Lockwood 4-vessel CABG 2001 no recent ischemic symptoms remains on metoprolol succinate BID, lipitor 80mg daily, Entresto/aldactone (4) History of coronary artery bypass graft: as above (5) Chronic systolic (congestive) heart failure: long-standing, chronic - presumed nonischemic (records suggest etoh-induced?) EF 20-25% on echo 08/2023 euvolemic cont metoprolol succ; lasix daily resumed Entresto/aldactone on discharge (6) Hypertension: controlled (7) Pre-diabetes: last Hba1c 5.8% in fall 2022 (8) YANELI (acute kidney injury): baseline Cr 0.7 to 0.9 peak 1.13 then improved back to baseline as of 09/19 likely due to pre-renal factors in the setting of surgery for his left hip fracture held Entresto/aldactone temporarily, resumed on discharge (9) Hypothyroidism: last TSH earlier this year was 26.7 in May 2023 cont synthroid updated TSH was 4.4 (10) DVT prophylaxis: Eliquis 5mg BID Plan I updated his granddaughter at bedside today Total Time Total Time Spent Total Time Spent (In Minutes): I have personally spent 35 minutes performing [id number] and [id number] activities on this date of service. Activities Include: _x_ review of the medical record __ obtaining a history _x_ physical exam/evaluation __ reviewing labs __ reviewing radiology reports _x_ counseling/educating patient/family/caregiver __ discussion/referral to other healthcare professional __ independent interpretation of test results __ communication of results to patient/family/caregiver _x_ discussion with care coordination/coordinating care __ writing orders _x_ discharge orders and instructions _x_ documentation Discharge Plan Discharge Items Patient Disposition: Transfer [facility]way Fac Reason For Visit: FALL, LEFT HIP PAIN WITH WALKING Discharge Diagnosis: Left hip fracture Condition on Discharge: Good Activity: Per Instructions section Lifting: Wait until after follow-up appointment Bathing: Keep incision dry Bathing Comment: leave silverlon dressing in place Exercise/Sports: Wait until after follow-up appointment Driving/Machine Use: No driving Weightbearing: Full weightbearing Non-emergency contact: Primary Care Provider and Surgeon Call non-emergency contact if: you have any medication questions, your symptoms worsen, you have a fever, your temperature is above 101, your wound has increased redness, your wound has increased drainage and your wound pain has increased Follow-up/Referrals: Pro,Julio C Holcomb MD [Primary Care Provider] - Calvin Ramos PA-C [Physician Silk Opener] - 10/03/23 10:00 am Diet: Low Sodium (2gm) Fluids: 1800ml (7 cups) Addtl Attending Provider Instructions: PT and OT evaluate and treat Replacing low vitamin D Follow up in primary care for osteoporosis Chronic systolic heart failure Monitor weight 3x a week, monitor edema, adjust diuretic accordingly BMP in 1 week - follow up re-initiation of entresto after very mild YANELI 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 Continue to ice the hip with EZ wrap. PT/OT Total hip precautions. Weight-bear as tolerated with posterior hip precautions and a walker with max assist. Abduction pillow to be worn while he is in bed. Continue Eliquis for DVT prophylaxis Silverlon dressing to be left in place until his 2-week follow-up appointment. He is okay to shower with the Silverlon dressing in place. Follow-up with orthopedics 2 weeks after surgery. Pain Expect to be in a fair amount of pain after surgery. Remember, our goal is not to eliminate your pain, but to make it tolerable. It is a good idea to stay ahead of your pain by taking the medications you were prescribed once you get home. Typically, the pain starts improving 3-7 days after surgery. You should start weaning off the narcotic pain medication (oxycodone, hydrocodone, hydromorphone, morphine) as soon as your pain improves. Please call our office if your pain is not adequately controlled. Ice Ice your operative site at least 5 times a day for 15-30 minutes at a time. Make sure you have a thin cloth between the ice or cooling unit and your skin to prevent landrum bite. This is especially important if you received a nerve block. Continue icing your operative site for the first 5-7 days after surgery, then as needed. Constipation Constipation is a common side effect of narcotic pain medication. If you have not had a bowel movement within 2 days after surgery, we recommend purchasing an over the counter laxative such as Milk of Magnesia, Dulcolax, or Miralax from a local pharmacy, and taking it as instructed. Call our clinic if any questions. Slings and Braces If you were placed in a sling or brace, it must be worn at all times, including sleep. You may remove your sling or brace for physical therapy, home exercises, and showering. The length of time you will be in your brace and range of motion restrictions depends on what surgery you had; these details will be reviewed at your first post-operative appointment. Weight bearing and Range of Motion. Do not bear any weight through your operative extremity immediately after surgery. If you had upper extremity surgery, do not lift anything with that arm. If you are in a knee brace, keep it locked in place until your follow-up. We will discuss your weight bearing, range of motion, and lifting restrictions in detail at your first post-operative appointment. Physical therapy You will be given a prescription for physical therapy or occupational therapy at your first post-operative appointment. Typically, patients start therapy within 1 week of surgery Wound care and showering We will inspect your wound at your first post-operative visit, and may do a dressing change at that time. Most patients will be in a water-proof dressing that is removed 14 days after surgery. It is normal to see some dried blood on the dressing. Do not remove your dressing, paper strips or sutures yourself unless you are given permission. Showering is allowed the day after surgery. Do not scrub or remove any dressings. The wound should not be submerged underwater (i.e. in a bathtub or pool) until 4 weeks after surgery SHMUEL stockings If you were given white stockings, these are to be worn at all times except to shower (on both legs) for the first 2 weeks after surgery. Travel Avoid long distance travel (greater than 1 hour) in airplanes and cars for the first 6 weeks after surgery. If you must travel, you need to have a Doppler ultrasound done before you travel to rule out a blood clot in your legs. Follow-up You should have a follow-up appointment already scheduled 2 weeks after surgery. If not, please contact our office to make this appointment before you leave the hospital. When to call the office It is normal to have swelling and bruising in the limb that was operated on. This will improve with time. It is also normal to have fevers for the first 2 days after surgery. Reasons you should call your doctor include: Uncontrolled pain; Nausea, vomiting, or constipation that does not improve with medication; Fevers over 101.5, chills, sweats; Drainage or bleeding from the wound; Foul odor; Spreading areas of redness; Any other concerns or questions contact our clinic at [phone] Pending Studies at Discharge: Yes Studies:: bone pathology Stand-Alone Forms: My [facility] Skilled Items Patient informed of condition?: Yes DNR: No Discharge Level of Care: Skilled Communicable Disease: No Discharge Prognosis: Improving Lines: None Urinary Catheter: No Medications and DC Order Prescriptions: New ferrous gluconate 324 mg (38 mg iron) Tablet 324 mg PO DAILY Qty: 0 0RF quetiapine 25 mg Tablet 25 mg PO HS Qty: 0 0RF acetaminophen 325 mg Tablet 650 mg PO Q4H PRNQty: 0 0RF polyethylene glycol 3350 [Miralax] 17 gram Powder In Packet 17 g PO DAILY PRNQty: 0 0RF melatonin 3 mg Tablet 3 mg PO HS PRNQty: 0 0RF ascorbic acid (vitamin C) [Vitamin C] 500 mg Tablet 500 mg PO BIDM Qty: 0 0RF multivitamin with folic acid [Daily-Figueroa (with folic acid)] 400 mcg Tablet 1 tab PO QAM Qty: 0 0RF cholecalciferol (vitamin D3) [Vitamin D3] 25 mcg (1,000 unit) capsule 25 mcg PO DAILY Qty: 1 0RF Continued Eliquis 5 mg tablet 5 mg PO BID Qty: 180 3RF furosemide 80 mg tablet 80 mg PO DAILY 90 Days Qty: 90 3RF metoprolol succinate 50 mg tablet extended release 24 hr 50 mg PO BID Qty: 180 3RF potassium chloride 10 mEq capsule, extended release 10 meq PO DAILY Qty: 90 3RF Entresto 24-26 mg tablet 1 tab PO BID Qty: 180 3RF spironolactone 25 mg tablet 12.5 mg PO DAILY Qty: 45 3RF atorvastatin 80 mg tablet 80 mg PO QPM Qty: 90 3RF levothyroxine [Synthroid] 25 mcg tablet 25 mcg PO .daily in the AM Qty: 90 3RF Rx Instructions: once daily in the morning Discontinued quetiapine 25 mg tablet 25 mg PO ONCE HS Qty: 90 3RF Rx Instructions: once at bed time Discharge Orders: Discharge Order (Routine); Ordered 09/22/23 Ordered By: Melody Montoya Admission Data Admit Date/Time: 09/16/23 16:09 Attending Provider: Melody Montoya Admit Provider: Billy Rojo Primary Care Provider: Julio C Lehman Other Providers: Billy Beard Other Interventions: Discharge Summary Assessment (RN) Last Done: 09/22/23 11:27 Coding Level of Care Code 96776 INP/OBS DISCH >30 MIN Diagnoses Fracture of proximal end of left femur S72.002A PAF (paroxysmal atrial fibrillation) I48.0 CAD (coronary atherosclerotic disease) I25.10 History of coronary artery bypass graft Z95.1 Chronic systolic (congestive) heart failure I50.22 Hypertension I10 Pre-diabetes R73.03 YANELI (acute kidney injury) N17.9 Hypothyroidism E03.9 DVT prophylaxis Z29.9
== END 2023-09-22 14:15 | DRG 522 ==
LOC: ED 11:48 → 3E 16:09 → SUATTDRO 16:09 → 3E 18:25